=== PATIENT | female | born 1950 | race Caucasian/White ===

== ENCOUNTER 2017-11-19 14:02 | Inpatient (IN) ==
[2017-11-19] MEDS ORDERED: Ondansetron 4 MG/2 ML VIAL IVP ONE ×2 (14:09→16:05)
--- NOTE | 2017-11-19 14:10 | Emergency Department Note ---
Disposition Clinical Impression: SBO (small bowel obstruction), History of lung cancer Nausea and vomiting Qualifiers: Vomiting type: unspecified Vomiting Intractability: non-intractable Qualified Code(s): R11.2 - Nausea with vomiting, unspecified Dyspnea Qualifiers: Dyspnea type: unspecified Qualified Code(s): R06.00 - Dyspnea, unspecified Leukocytosis Qualifiers: Leukocytosis type: unspecified Qualified Code(s): D72.829 - Elevated white blood cell count, unspecified Disposition: Admitted As Inpatient Condition: Fair Referrals: Marleny Robles [employer] [Primary Care Provider] - Forms: ED Satisfaction Letter Time of Disposition: 16:40 Nausea/Vomiting/Diarrhea HPI - General Chief complaint: ED Nausea/Vomiting/Diarrhea Stated complaint: N/V Time Seen by Provider: 11/19/17 14:05 Source: patient, EMS Mode of arrival: EMS Limitations: no limitations Nursing Notes Reviewed: Yes Vital Signs Reviewed: Yes - History of Present Illness HPI Narrative: Patient is a 67-year-old female with past medical history of lung cancer, follows with the cancer center. She also has a history of KS, stent placement 2, ventral hernia. She states that she receives chemotherapy, just received a new chemotherapy within the past week. She presents today via EMS for nausea, vomiting. states that her nausea and vomiting symptoms started today around noon. She has been vomiting large amounts of brown vomit. Denies any blood in vomit. She admits to generalized abdominal discomfort. She also admits to a ventral hernia and a recent history of bowel structure in in May and she states that she felt similar to this. She also admits to mild dyspnea but denies any overt chest discomfort. Denies any known fevers, any known sick contacts, any dysuria, hematuria. - Related Data Home Medications Medication Instructions Recorded Confirmed Furosemide [Lasix] 80 mg PO DAILY 04/20/15 11/16/17 Hydroxychloroquine [Plaquenuil] 200 mg PO BID 04/20/15 11/16/17 Levothyroxine [Synthroid] 37.5 mcg PO 0630 04/20/15 11/16/17 Potassium Chloride 10 meq PO DAILY 04/20/15 11/16/17 Sertraline [Zoloft] 200 mg PO DAILY 04/20/15 11/16/17 Tizanidine HCl [Zanaflex] 4 mg PO TID PRN 12/29/15 07/27/18 Albuterol Sulfate [Proair Hfa] 2 puff IH Q4H PRN 06/10/15 11/16/17 Ascorbic Acid [Vitamin C] 250 mg PO DAILY 06/10/15 11/16/17 Calcium Carbonate/Vitamin D3 1 each PO BID 06/10/15 11/16/17 [Calcium 600 + Vit D Softgel] Cholecalciferol (D-3) [Vitamin D] 2,000 unit PO BID 06/10/15 11/16/17 Cyanocobalamin (Vitamin B-12) 2,500 mcg SL DAILY 06/10/15 11/16/17 [Vitamin B-12] Nitroglycerin [Nitrostat] 0.4 mg SL Q5M PRN 06/10/15 11/16/17 [place]-3 Fatty Acids [Fish Oil] 1,000 mg PO BID 06/10/15 11/16/17 Rivaroxaban [Xarelto] 20 mg PO DAILY 06/10/15 11/16/17 Vit C/Vit E/Lutein/Min/Atl[place]-3 1 each PO DAILY 06/10/15 11/16/17 [Ocuvite Softgel] Acetaminophen [Tylenol] 325 mg PO Q6HR PRN 03/28/17 11/16/17 Budesonide/Formoterol 160/4.5 2 puff IH BIDR 03/28/17 11/16/17 [Symbicort 160/4.5] Lidocaine Patch [Lidoderm 5% patch] 2 each TP DAILY 03/28/17 11/16/17 Simethicone [Gas Relief] 125 mg PO QID PRN 03/28/17 11/16/17 Tiotropium [Spiriva] 1 inh IH DAILY 03/28/17 11/16/17 Vitamin B Complex [B Complex] 1 each PO DAILY 03/28/17 11/16/17 guaiFENesin [Guaifenesin] 600 mg PO DAILY PRN 03/28/17 11/16/17 Metoprolol XL (24 HR) Succ [Toprol 100 mg PO DAILY 06/12/17 11/16/17 Xl] Previous Rx's Medication Instructions Recorded Aspirin 81 mg PO DAILY #30 tab.chew 04/28/15 Atorvastatin [Lipitor] 40 mg PO HS 30 Days tablet 04/28/15 Lidocaine/Prilocaine CREAM [Emla] 5 gm TP ONCE #1 tube 04/06/17 Varenicline [Chantix] 0.5 mg PO DAILY #30 tablet 05/09/17 Loperamide [Imodium] 2 mg PO Q4HR #120 capsule 09/07/17 Ondansetron [Zofran] 8 mg PO Q8HR PRN #90 tablet 09/07/17 OxyCODONE Immed Rel [Roxicodone 5 5 mg PO BID PRN 30 Days #60 tablet 10/05/17 MG] Magic Mouthwash [Magic Mouthwash 10 ml PO QID PRN #240 ml 10/19/17 BLM] Dexamethasone [Decadron] 4 mg PO BID #36 tab 11/16/17 Prochlorperazine Maleate 10 mg PO Q8HR PRN #90 tablet 11/16/17 [Compazine] Tramadol HCl [Ultram] 50 mg PO TID PRN 30 Days #90 tab 11/16/17 Zolpidem [Ambien] 5 mg PO HS PRN 30 Days #30 tablet 11/16/17 Allergies Allergy/AdvReac Type Severity Reaction Status Date / Time duloxetine [From Cymbalta] Allergy Itching Verified 11/16/17 12:46 Metaxalone [From Skelaxin] Allergy Itching Verified 11/16/17 12:46 valdecoxib [From Bextra] Allergy Itching Verified 11/16/17 12:46 bupropion [From Wellbutrin] AdvReac See Verified 11/16/17 12:46 Comments meperidine [From Demerol] AdvReac Nausea Verified 11/16/17 12:46 pentazocine [From Talwin] AdvReac See Verified 11/16/17 12:46 Comments eggs AdvReac Abdominal Uncoded 11/16/17 12:46 Pain All systems ED: reviewed and negative except as stated. Constitutional: Denies: fever Cardiovascular: Denies: chest pain Respiratory: Reports: dyspnea Gastrointestinal: Reports: abdominal pain, nausea, vomiting, diarrhea Past Medical History - Past Medical History Attestation: Yes The following information was validated with the patient. Source: patient Medical history: Reports: arthritis, asthma, atrial fibrillation, cancer, CHF, COPD, DVT, hypertension, kidney stones, myocardial infarction, peripheral artery disease, RA, thyroid disease, other Surgical history: Reports: angioplasty/stent, appendectomy, breast surgery, c- section, cholecystectomy, herniorrhaphy, orthopedic, other, other Psychiatric history: Reports: depression - Social History Smoking Status: Current every day smoker Smokeless Tobacco Status: No Alcohol use: Reports: none Drug use: Reports: none Physical Exam - General Limitations: no limitations General appearance: alert, other (actively vomiting, holding emesis bag) - Head Head exam: atraumatic, normocephalic, normal inspection - Eye Eye exam: Present: normal appearance, PERRL, EOMI - ENT ENT exam: normal exam, normal oropharynx, mucous membranes moist - Neck Neck exam: Present: normal inspection, full ROM, trachea midline - Chest Chest inspection: Present: normal inspection, symmetric chest wall rise - Respiratory Respiratory exam: Present: normal lung sounds bilaterally - Cardiovascular Cardiovascular exam: Present: normal rhythm, tachycardia, normal heart sounds - Abdominal Exam Abdominal exam: Present: soft, tenderness (Mild generalized tenderness), other ( Large ventral hernia, soft but not reducible due to size no overlying discoloration). Absent: distention, guarding, rebound, rigidity - Extremities Exam Extremities exam: Present: normal inspection, full ROM. Absent: tenderness, pedal edema - Neurological Exam Neurological exam: Present: alert, oriented X3 - Psychiatric Psychiatric exam: Present: normal affect, normal mood - Skin Skin exam: Present: warm, dry, intact, normal color Course Course Narrative: Patient was tachycardic and hypertensive on presentation. She is actively vomiting. Physical exam shows generalized abdominal tenderness. She also had large ventral hernia that was soft but not reducible due to size. Patient's symptoms may be related to new chemotherapy. However, there is concern for possible bowel obstruction. We will perform basic labs, EKG, troponin, chest x- ray due to history of KS and current shortness of breath. We will also obtain CT scan of abdomen and pelvis to assess for any objection. We will give the patient Zofran for nausea and normal saline bolus. 16:38 labs show elevated white blood cell count. Urinalysis negative for UTI. CT abdomen and pelvis shows increase in size of liver metastasis, small bowel obstruction. Chronic elevation in troponin level. No evidence of any pneumonia. I contacted Dr. Palmer with surgery, discussed small bowel structuring , he has requested NG placement at this time and nothing by mouth status. I also contacted Estefanía Ortega who is on-call for oncology, discussed case and they have agreed to be consult. Accepted for admission at this time by Dr. Szymanski Chest X-Ray 11/19/17 14:08 IMPRESSION: 1. No acute cardiopulmonary process. 2. Chronic increased interstitial markings are present bilaterally, lower lobe predominant. No obvious interval change compared to 2016. D/ / 11/19/2017 14:52:06 Caleb Munoz MD / [facility] Interpreting Provider: Caleb Munoz MD Abdomen/Pelvis CT 11/19/17 14:10 IMPRESSION: 1. Most likely explanation for the patient's symptoms is acute small bowel obstruction. No evidence of perforation. 2. Progression of metastatic disease with extensive liver masses which have somewhat grown from the previous evaluation. 3. Redemonstration of left lower lobe mass. 4. Redemonstration of ventral fat containing hernia. D/ / 11/19/2017 15:31:21 Gayle Portillo MD / [email or web address] Interpreting Provider: Gayle Portillo MD Vital Signs Temperature 98.9 F 11/19/17 14:06 Pulse Rate 104 11/19/17 14:06 Respiratory Rate 22 11/19/17 14:06 Blood Pressure 217/99 11/19/17 14:06 O2 Sat by Pulse Oximetry 96 11/19/17 14:06 Temperature 98.9 F 11/19/17 14:32 Pulse Rate 99 11/19/17 15:24 Respiratory Rate 18 11/19/17 15:24 Blood Pressure 223/102 11/19/17 15:24 O2 Sat by Pulse Oximetry 96 11/19/17 15:24 Oxygen Delivery Oxygen Delivery Room Air Nausea/Vomiting/Diarrhea - MDM Narrative Medical decision making narrative: Patient was tachycardic and hypertensive on presentation. She is actively vomiting. Physical exam shows generalized abdominal tenderness. She also had large ventral hernia that was soft but not reducible due to size. Patient's symptoms may be related to new chemotherapy. However, there is concern for possible bowel obstruction. We will perform basic labs, EKG, troponin, chest x- ray due to history of KS and current shortness of breath. We will also obtain CT scan of abdomen and pelvis to assess for any objection. We will give the patient Zofran for nausea and normal saline bolus. 16:38 labs show elevated white blood cell count. Urinalysis negative for UTI. CT abdomen and pelvis shows increase in size of liver metastasis, small bowel obstruction. Chronic elevation in troponin level. No evidence of any pneumonia. I contacted Dr. Palmer with surgery, discussed small bowel structuring , he has requested NG placement at this time and nothing by mouth status. I also contacted Estefanía Ortega who is on-call for oncology, discussed case and they have agreed to be consult. Accepted for admission at this time by Dr. Szymanski - Medical Records Medical records reviewed: Yes I reviewed the patient's medical records. - Lab Data Lab results reviewed: Yes I reviewed the patient's lab results. Result diagrams: 11/19/17 14:36 11/19/17 14:36 Lab Results 11/19/17 11/19/17 11/19/17 Range/Units 14:36 14:36 14:36 WBC 23.5 H D (4.3-11.1) K/mcL RBC 4.18 (3.82-4.97) M/mcL Hgb 10.8 L D (11.5-15.4) g/dL Hct 32.2 L (35.3-44.9) % MCV 77.0 L (83.0-100.0) fL MCH 25.8 L (28.0-33.3) pg MCHC 33.5 (31.6-35.5) g/dL RDW 21.5 H (11.5-14.5) % Plt Count 221 (140-400) K/mcL MPV 10.0 (9.4-12.4) fL Seg Neutrophils % 90.0 % Lymphocytes % 2.0 % Monocytes % 8.0 % Neutrophils # 21.2 H (1.6-8.9) K/mcL Lymphocytes # 0.5 L (0.6-4.6) K/mcL Monocytes # 1.9 H (0.0-1.3) K/mcL Platelet Estimate Normal (Normal) Anisocytosis 1+ A (Not Present) Sodium 122 L (136-145) mEq/L Potassium 3.7 (3.5-5.1) mEq/L Chloride 89 L (98-107) mEq/L Carbon Dioxide 20 L (23-29) mEq/L BUN 13 (8-23) mg/dL Creatinine 0.43 L (0.60-1.20) mg/dL Est GFR ( Amer) > 60 (> 60) Est GFR (Non-Af Amer) > 60 (> 60) BUN/Creatinine Ratio 30 H (6-26) Glucose 195 H (70-105) mg/dL Calculated Osmolality 259 L (280-300) Calcium 10.0 (8.6-10.3) mg/dL Total Bilirubin 0.7 (0.3-1.0) mg/dL Direct Bilirubin 0.2 (0.0-0.2) mg/dL Indirect Bilirubin 0.5 (0.0-1.2) mg/dL AST 53 H (13-39) Units/L ALT 33 (7-52) Units/L Alkaline Phosphatase 265 H (34-104) Units/L Troponin I 0.04 H* (< 0.04) ng/mL Serum Total Protein 7.2 (6.4-8.9) g/dL Albumin 4.3 (3.5-5.7) g/dL Globulin 2.9 (2.4-3.5) g/dL Albumin/Globulin Ratio 1.5 (1.1-2.2) Lipase 33 (11-82) Units/L Urine Color (Yellow) Urine Clarity (Clear) Urine pH (5.0-8.0) pH Units Ur Specific [place] (1.010-1.025) Urine Protein (Neg-Trace) mg/dL Urine Glucose (UA) (Normal) mg/dL Urine Ketones (Negative) mg/dL Urine Blood (Negative) Urine Nitrite (Negative) Urine Bilirubin (Negative) Urine Urobilinogen (Normal) mg/dL Ur Leukocyte Esterase (Negative) Urine Microscopic RBC (0-3) per hpf Urine Microscopic WBC (0-3) per hpf Ur Squamous Epith Cells (None-Few) per lpf Urine Bacteria (None-Few) per hpf Hyaline Casts (None-Few) per lpf Ur Culture Indicated? (NO) 11/19/17 Range/Units 15:45 WBC (4.3-11.1) K/mcL RBC (3.82-4.97) M/mcL Hgb (11.5-15.4) g/dL Hct (35.3-44.9) % MCV (83.0-100.0) fL MCH (28.0-33.3) pg MCHC (31.6-35.5) g/dL RDW (11.5-14.5) % Plt Count (140-400) K/mcL MPV (9.4-12.4) fL Seg Neutrophils % % Lymphocytes % % Monocytes % % Neutrophils # (1.6-8.9) K/mcL Lymphocytes # (0.6-4.6) K/mcL Monocytes # (0.0-1.3) K/mcL Platelet Estimate (Normal) Anisocytosis (Not Present) Sodium (136-145) mEq/L Potassium (3.5-5.1) mEq/L Chloride (98-107) mEq/L Carbon Dioxide (23-29) mEq/L BUN (8-23) mg/dL Creatinine (0.60-1.20) mg/dL Est GFR ( Amer) (> 60) Est GFR (Non-Af Amer) (> 60) BUN/Creatinine Ratio (6-26) Glucose (70-105) mg/dL Calculated Osmolality (280-300) Calcium (8.6-10.3) mg/dL Total Bilirubin (0.3-1.0) mg/dL Direct Bilirubin (0.0-0.2) mg/dL Indirect Bilirubin (0.0-1.2) mg/dL AST (13-39) Units/L ALT (7-52) Units/L Alkaline Phosphatase (34-104) Units/L Troponin I (< 0.04) ng/mL Serum Total Protein (6.4-8.9) g/dL Albumin (3.5-5.7) g/dL Globulin (2.4-3.5) g/dL Albumin/Globulin Ratio (1.1-2.2) Lipase (11-82) Units/L Urine Color Yellow (Yellow) Urine Clarity Clear (Clear) Urine pH 6.5 (5.0-8.0) pH Units Ur Specific [place] 1.018 (1.010-1.025) Urine Protein 100 H (Neg-Trace) mg/dL Urine Glucose (UA) Normal (Normal) mg/dL Urine Ketones Negative (Negative) mg/dL Urine Blood Negative (Negative) Urine Nitrite Negative (Negative) Urine Bilirubin Negative (Negative) Urine Urobilinogen Normal (Normal) mg/dL Ur Leukocyte Esterase Negative (Negative) Urine Microscopic RBC 0-3 (0-3) per hpf Urine Microscopic WBC 0-3 (0-3) per hpf Ur Squamous Epith Cells Many H (None-Few) per lpf Urine Bacteria None Seen (None-Few) per hpf Hyaline Casts None Seen (None-Few) per lpf Ur Culture Indicated? NO (NO) - Radiology Data Radiology results reviewed: Yes I reviewed the patient's radiology results. - EKG Data EKG attestation: Yes I reviewed and interpreted this EKG. EKG results narrative: 11/19/2017 at 14:12. Sinus tachycardia. Rate 104. CT 155. QRS 104. QTC 415. Normal axis. No acute ST elevation or depression. T-wave inversion in lead 3. No previous EKG. S.B.A.R. - S.B.A.R. Situation: Demographics, MOA Background: Presenting Complaint, Relevant PMH, Meds, & Allergies Assessment: Vital Signs, Course and respsone to treatment, Exam Concerns, Patient/Family Expectation, Pertinant Lab Results Recommendation: Barrier(s) to disposition, Recommendation based on pending studies, treatments, or consults S.B.A.R. Report Given to: Dr. Szymanski
[2017-11-19 14:45] LABS: Hematocrit 32.2 % (35.3-44.9); Hemoglobin 10.8 g/dL (11.5-15.4); Mean Corpuscular HGB Conc 33.5 g/dL (31.6-35.5); Mean Corpuscular Hemoglobin 25.8 pg (28.0-33.3); Platelet Count 221 K/mcL (140-400); Red Blood Count 4.18 M/mcL (3.82-4.97); Red Cell Distribution Width 21.5 % (11.5-14.5)
[2017-11-19] MEDS ORDERED: 0.9 % Sodium Chloride 1,000 ML IVC ONE (14:54)
[2017-11-19 15:05] LABS: Alanine Aminotransferase 33 Units/L (7-52); Albumin 4.3 g/dL (3.5-5.7); Albumin/Globulin Ratio 1.5 (1.1-2.2); Alkaline Phosphatase 265 Units/L (34-104); Aspartate Amino Transferase 53 Units/L (13-39); BUN/Creatinine Ratio 30 (6-26); Bilirubin,Direct 0.2 mg/dL (0.0-0.2); Bilirubin,Indirect 0.5 mg/dL (0.0-1.2); Bilirubin,Total 0.7 mg/dL (0.3-1.0); Blood Urea Nitrogen 13 mg/dL (8-23); Carbon Dioxide 20 mEq/L (23-29); Chloride 89 mEq/L (98-107); Globulin 2.9 g/dL (2.4-3.5); Glucose 195 mg/dL (70-105); Lipase 33 Units/L (11-82); Osmolality,Calculated 259 (280-300); Potassium 3.7 mEq/L (3.5-5.1); Sodium 122 mEq/L (136-145); Total Protein 7.2 g/dL (6.4-8.9); eGFR For Non-African Americans > 60 (> 60)
--- NOTE | 2017-11-19 15:28 | Emergency Department Note ---
Disposition Clinical Impression: SBO (small bowel obstruction), Nausea and vomiting, Dyspnea, Leukocytosis, History of lung cancer Disposition: Admitted As Inpatient Condition: Fair General Adult HPI - General Chief complaint: ED Nausea/Vomiting/Diarrhea Stated complaint: N/V Time Seen by Provider: 11/19/17 14:05 Source: patient, EMS Mode of arrival: EMS Limitations: no limitations - History of Present Illness Pain Scale: 4 - Related Data Home Medications Medication Instructions Recorded Confirmed Furosemide [Lasix] 80 mg PO DAILY 04/20/15 11/19/17 Hydroxychloroquine [Plaquenuil] 200 mg PO BID 04/20/15 11/19/17 Levothyroxine [Synthroid] 37[place] [address]/20/15 11/19/17 Potassium Chloride 10 meq PO DAILY 04/20/15 11/19/17 Sertraline [Zoloft] 200 mg PO DAILY 04/20/15 11/19/17 Tizanidine HCl [Zanaflex] 4 mg PO TID PRN 04/20/15 11/19/17 Albuterol Sulfate [Proair Hfa] 2 puff IH Q4H PRN 06/10/15 11/19/17 Ascorbic Acid [Vitamin C] 250 mg PO DAILY 06/10/15 11/19/17 Calcium Carbonate/Vitamin D3 1 each PO BID 06/10/15 11/19/17 [Calcium 600 + Vit D Softgel] Cholecalciferol (D-3) [Vitamin D] 2,000 unit PO BID 06/10/15 11/19/17 Cyanocobalamin (Vitamin B-12) 2,500 mcg SL DAILY 06/10/15 11/19/17 [Vitamin B-12] Nitroglycerin [Nitrostat] 0.4 mg SL Q5M PRN 06/10/15 11/19/17 [place]-3 Fatty Acids [Fish Oil] 1,000 mg PO BID 06/10/15 11/19/17 Rivaroxaban [Xarelto] 20 mg PO DAILY 06/10/15 11/19/17 Acetaminophen [Tylenol] 325 mg PO Q6HR PRN 03/28/17 11/19/17 Budesonide/Formoterol 160/4.5 2 puff IH BIDR 03/28/17 11/19/17 [Symbicort 160/4.5] Lidocaine Patch [Lidoderm 5% patch] 2 each TP DAILY 03/28/17 11/19/17 Simethicone [Gas Relief] 125 mg PO QID PRN 03/28/17 11/19/17 Tiotropium [Spiriva] 1 inh IH DAILY 03/28/17 11/19/17 Vitamin B Complex [B Complex] 1 each PO DAILY 03/28/17 11/19/17 guaiFENesin [Guaifenesin] 600 mg PO DAILY PRN 03/28/17 11/19/17 Metoprolol XL (24 HR) Succ [Toprol 100 mg PO DAILY 06/12/17 11/19/17 Xl] Previous Rx's Medication Instructions Recorded Aspirin 81 mg PO DAILY #30 tab.chew 04/28/15 Atorvastatin [Lipitor] 40 mg PO HS 30 Days tablet 04/28/15 Lidocaine/Prilocaine CREAM [Emla] 5 gm TP ONCE #1 tube 04/06/17 Loperamide [Imodium] 2 mg PO Q4HR #120 capsule 09/07/17 Ondansetron [Zofran] 8 mg PO Q8HR PRN #90 tablet 09/07/17 Magic Mouthwash [Magic Mouthwash 10 ml PO QID PRN #240 ml 10/19/17 BLM] Dexamethasone [Decadron] 4 mg PO BID #36 tab 11/16/17 Prochlorperazine Maleate 10 mg PO Q8HR PRN #90 tablet 11/16/17 [Compazine] Tramadol HCl [Ultram] 50 mg PO TID PRN 30 Days #90 tab 11/16/17 Zolpidem [Ambien] 5 mg PO HS PRN 30 Days #30 tablet 11/16/17 Allergies Allergy/AdvReac Type Severity Reaction Status Date / Time duloxetine [From Cymbalta] Allergy Itching Verified 11/16/17 12:46 Metaxalone [From Skelaxin] Allergy Itching Verified 11/16/17 12:46 valdecoxib [From Bextra] Allergy Itching Verified 11/16/17 12:46 bupropion [From Wellbutrin] AdvReac See Verified 11/16/17 12:46 Comments meperidine [From Demerol] AdvReac Nausea Verified 11/16/17 12:46 pentazocine [From Talwin] AdvReac See Verified 11/16/17 12:46 Comments eggs AdvReac Abdominal Uncoded 11/16/17 12:46 Pain Constitutional: Denies: fever Cardiovascular: Denies: chest pain Respiratory: Reports: dyspnea Gastrointestinal: Reports: abdominal pain, nausea, vomiting, diarrhea Past Medical History - Past Medical History Medical history: Reports: arthritis, asthma, atrial fibrillation, cancer, CHF, COPD, DVT, hypertension, kidney stones, myocardial infarction, peripheral artery disease, RA, thyroid disease, other Surgical history: Reports: angioplasty/stent, appendectomy, breast surgery, c- section, cholecystectomy, herniorrhaphy, orthopedic, other, other Psychiatric history: Reports: depression - Social History Smoking Status: Current every day smoker Smokeless Tobacco Status: No Alcohol use: Reports: none Drug use: Reports: none Physical Exam - General Limitations: no limitations General appearance: alert, other (actively vomiting, holding emesis bag) Course Vital Signs Temperature 98.9 F 11/19/17 14:06 Pulse Rate 104 11/19/17 14:06 Respiratory Rate 22 11/19/17 14:06 Blood Pressure 217/99 11/19/17 14:06 O2 Sat by Pulse Oximetry 96 11/19/17 14:06 Temperature 98.9 F 11/19/17 14:32 Pulse Rate 88 11/19/17 16:59 Respiratory Rate 17 11/19/17 16:59 Blood Pressure 167/81 11/19/17 16:59 O2 Sat by Pulse Oximetry 98 11/19/17 16:59 Oxygen Delivery Oxygen Delivery Room Air Medical Decision Making - Lab Data Result diagrams: 11/19/17 14:36 11/19/17 14:36 Lab Results 11/19/17 11/19/17 11/19/17 Range/Units 14:36 14:36 14:36 WBC 23.5 H D (4.3-11.1) K/mcL RBC 4.18 (3.82-4.97) M/mcL Hgb 10.8 L D (11.5-15.4) g/dL Hct 32.2 L (35.3-44.9) % MCV 77.0 L (83.0-100.0) fL MCH 25.8 L (28.0-33.3) pg MCHC 33.5 (31.6-35.5) g/dL RDW 21.5 H (11.5-14.5) % Plt Count 221 (140-400) K/mcL MPV 10.0 (9.4-12.4) fL Seg Neutrophils % 90.0 % Lymphocytes % 2.0 % Monocytes % 8.0 % Neutrophils # 21.2 H (1.6-8.9) K/mcL Lymphocytes # 0.5 L (0.6-4.6) K/mcL Monocytes # 1.9 H (0.0-1.3) K/mcL Platelet Estimate Normal (Normal) Anisocytosis 1+ A (Not Present) Sodium 122 L (136-145) mEq/L Potassium 3.7 (3.5-5.1) mEq/L Chloride 89 L (98-107) mEq/L Carbon Dioxide 20 L (23-29) mEq/L BUN 13 (8-23) mg/dL Creatinine 0.43 L (0.60-1.20) mg/dL Est GFR ( Amer) > 60 (> 60) Est GFR (Non-Af Amer) > 60 (> 60) BUN/Creatinine Ratio 30 H (6-26) Glucose 195 H (70-105) mg/dL Calculated Osmolality 259 L (280-300) Lactic Acid (0.5-2.2) mmol/L Calcium 10.0 (8.6-10.3) mg/dL Total Bilirubin 0.7 (0.3-1.0) mg/dL Direct Bilirubin 0.2 (0.0-0.2) mg/dL Indirect Bilirubin 0.5 (0.0-1.2) mg/dL AST 53 H (13-39) Units/L ALT 33 (7-52) Units/L Alkaline Phosphatase 265 H (34-104) Units/L Troponin I 0.04 H* (< 0.04) ng/mL Serum Total Protein 7.2 (6.4-8.9) g/dL Albumin 4.3 (3.5-5.7) g/dL Globulin 2.9 (2.4-3.5) g/dL Albumin/Globulin Ratio 1.5 (1.1-2.2) Lipase 33 (11-82) Units/L Urine Color (Yellow) Urine Clarity (Clear) Urine pH (5.0-8.0) pH Units Ur Specific [place] (1.010-1.025) Urine Protein (Neg-Trace) mg/dL Urine Glucose (UA) (Normal) mg/dL Urine Ketones (Negative) mg/dL Urine Blood (Negative) Urine Nitrite (Negative) Urine Bilirubin (Negative) Urine Urobilinogen (Normal) mg/dL Ur Leukocyte Esterase (Negative) Urine Microscopic RBC (0-3) per hpf Urine Microscopic WBC (0-3) per hpf Ur Squamous Epith Cells (None-Few) per lpf Urine Bacteria (None-Few) per hpf Hyaline Casts (None-Few) per lpf Ur Culture Indicated? (NO) 11/19/17 11/19/17 Range/Units 15:45 16:54 WBC (4.3-11.1) K/mcL RBC (3.82-4.97) M/mcL Hgb (11.5-15.4) g/dL Hct (35.3-44.9) % MCV (83.0-100.0) fL MCH (28.0-33.3) pg MCHC (31.6-35.5) g/dL RDW (11.5-14.5) % Plt Count (140-400) K/mcL MPV (9.4-12.4) fL Seg Neutrophils % % Lymphocytes % % Monocytes % % Neutrophils # (1.6-8.9) K/mcL Lymphocytes # (0.6-4.6) K/mcL Monocytes # (0.0-1.3) K/mcL Platelet Estimate (Normal) Anisocytosis (Not Present) Sodium (136-145) mEq/L Potassium (3.5-5.1) mEq/L Chloride (98-107) mEq/L Carbon Dioxide (23-29) mEq/L BUN (8-23) mg/dL Creatinine (0.60-1.20) mg/dL Est GFR ( Amer) (> 60) Est GFR (Non-Af Amer) (> 60) BUN/Creatinine Ratio (6-26) Glucose (70-105) mg/dL Calculated Osmolality (280-300) Lactic Acid 1.3 (0.5-2.2) mmol/L Calcium (8.6-10.3) mg/dL Total Bilirubin (0.3-1.0) mg/dL Direct Bilirubin (0.0-0.2) mg/dL Indirect Bilirubin (0.0-1.2) mg/dL AST (13-39) Units/L ALT (7-52) Units/L Alkaline Phosphatase (34-104) Units/L Troponin I (< 0.04) ng/mL Serum Total Protein (6.4-8.9) g/dL Albumin (3.5-5.7) g/dL Globulin (2.4-3.5) g/dL Albumin/Globulin Ratio (1.1-2.2) Lipase (11-82) Units/L Urine Color Yellow (Yellow) Urine Clarity Clear (Clear) Urine pH 6.5 (5.0-8.0) pH Units Ur Specific [place] 1.018 (1.010-1.025) Urine Protein 100 H (Neg-Trace) mg/dL Urine Glucose (UA) Normal (Normal) mg/dL Urine Ketones Negative (Negative) mg/dL Urine Blood Negative (Negative) Urine Nitrite Negative (Negative) Urine Bilirubin Negative (Negative) Urine Urobilinogen Normal (Normal) mg/dL Ur Leukocyte Esterase Negative (Negative) Urine Microscopic RBC 0-3 (0-3) per hpf Urine Microscopic WBC 0-3 (0-3) per hpf Ur Squamous Epith Cells Many H (None-Few) per lpf Urine Bacteria None Seen (None-Few) per hpf Hyaline Casts None Seen (None-Few) per lpf Ur Culture Indicated? NO (NO) Attestation Statement - Attestation Attestation: I examined this patient and my medical decision-making was reviewed with the Resident Physician. I agree with the documented findings, disposition and treatment plan as described except to the extent set forth below. Patient to the ED with a chief complaint of vomiting. Onset this morning. Patient stated chemotherapy was started on Sunday. She has lung cancer metastatic to the liver. On examination she is actively vomiting when she arrived in the department. Her abdomen is soft but it is tender in the lower quadrants. Plan. Labs, fluids and nausea meds and CT. CT scan shows a likely small bowel obstruction. We will discuss with surgery. Admitted to medicine. Chest X-Ray 11/19/17 14:08 IMPRESSION: 1. No acute cardiopulmonary process. 2. Chronic increased interstitial markings are present bilaterally, lower lobe predominant. No obvious interval change compared to 2016. D/ / 11/19/2017 14:52:06 Caleb Munoz MD / kalyn Interpreting Provider: Caleb Munoz MD Abdomen/Pelvis CT 11/19/17 14:10 IMPRESSION: 1. Most likely explanation for the patient's symptoms is acute small bowel obstruction. No evidence of perforation. 2. Progression of metastatic disease with extensive liver masses which have somewhat grown from the previous evaluation. 3. Redemonstration of left lower lobe mass. 4. Redemonstration of ventral fat containing hernia. D/ / 11/19/2017 15:31:21 Gayle Portillo MD / yamilet Interpreting Provider: Gayle Portillo MD Chest X-Ray 11/19/17 14:08 IMPRESSION: 1. No acute cardiopulmonary process. 2. Chronic increased interstitial markings are present bilaterally, lower lobe predominant. No obvious interval change compared to 2016. D/ / 11/19/2017 14:52:06 Caleb Munoz MD / kalyn Interpreting Provider: Caleb Munoz MD Abdomen/Pelvis CT 11/19/17 14:10 IMPRESSION: 1. Most likely explanation for the patient's symptoms is acute small bowel obstruction. No evidence of perforation. 2. Progression of metastatic disease with extensive liver masses which have somewhat grown from the previous evaluation. 3. Redemonstration of left lower lobe mass. 4. Redemonstration of ventral fat containing hernia. D/ / 11/19/2017 15:31:21 Gayle Portillo MD / yamilet Interpreting Provider: Gayle Portillo MD X-Ray 11/19/17 16:33 IMPRESSION: Tip of the NG lying in the mid body of the stomach. Focal atelectasis or pneumonia in the left retrocardiac area. Possible slight to mild vascular congestion. D/ / Lucas Claudio MD / Lucas Claudio MD Interpreting Provider: Lucas Claudio MD
[2017-11-19] MEDS ORDERED: *HR* FentaNYL (PF) 100 MCG/2 ML VIAL IVP ONE (15:51)
[2017-11-19 15:54] LABS: Lymphocytes # 0.5 K/mcL (0.6-4.6); Monocytes # 1.9 K/mcL (0.0-1.3); Neutrophils # 21.2 K/mcL (1.6-8.9)
[2017-11-19 15:55] LABS: Anisocytosis 1+ (Not Present); Platelet Estimate Normal (Normal)
[2017-11-19 15:56] LABS: Bilirubin,Urine Negative (Negative); Blood,Urine Negative (Negative); Clarity,Urine Clear (Clear); Color,Urine Yellow (Yellow); Glucose,Urine (UA) Normal (Normal); Ketones,Urine Negative (Negative); Leukocyte Esterase,Urine Negative (Negative); Nitrite,Urine Negative (Negative); PH,Urine 6.5 pH Units (5.0-8.0); Protein,Urine 100 mg/dL (Neg-Trace); Specific Gravity,Urine 1.018 (1.010-1.025); Urobilinogen,Urine Normal (Normal)
[2017-11-19 15:58] LABS: Bacteria,Urine None Seen per hpf (None-Few); Hyaline Casts,Urine None Seen per lpf (None-Few); RBC,Urine 0-3 per hpf (0-3); Squamous Epithelial Cell,Urine Many per lpf (None-Few); WBC,Urine 0-3 per hpf (0-3)
[2017-11-19] MEDS ORDERED: Piperacillin/Tazobactam 3.375 GM in 0.9 % Sodium Chloride Mini Bag 100 ML IVPB ONE (16:08)
[2017-11-19] MEDS ORDERED: Ondansetron ODT 4 MG TAB.RAPDIS PO PRN (17:47)
[2017-11-19] MEDS ORDERED: Magic Mouthwash 10 ML UD Cup PO PRN (17:47)
[2017-11-19] MEDS ORDERED: Nitroglycerin 0.4 MG TAB.SUBL SL PRN (17:47)
[2017-11-19] MEDS ORDERED: Acetaminophen 325 MG TABLET PO PRN (17:47)
[2017-11-19] MEDS ORDERED: tiZANidine 4 MG TABLET PO PRN (17:47)
[2017-11-19] MEDS ORDERED: traMADol 50 MG TABLET PO PRN (17:47)
[2017-11-19] MEDS ORDERED: D5% in Water 1,000 ML IVC PRN (17:50)
[2017-11-19] MEDS ORDERED: *HR* Dextrose 50 % in Water (Syg) 50 ML SYRINGE IVP PRN (17:50)
[2017-11-19] MEDS ORDERED: Dextrose Gel 15 GM/37.5 ML TUBE PO PRN ×2 (17:50)
--- NOTE | 2017-11-19 18:13 | Internal Med History&Physical ---
<Bisi Murrieta - Last Filed: 11/19/17 18:10> Date of Encounter: 11/19/17 Time of Encounter: 18:10 Internal Medicine - H&P: HPI Admitted From: Home Plans for Post Hospital Care: Home History of present illness: Ms. Manning is a 67-year-old female with past medical history of lung cancer, follows with the cancer center. She also has a history of NC, stent placement, CHF, DM, HLP, and ventral hernia. She states that received a new chemotherapy within the past week. She presents today via EMS for nausea, vomiting. states that her nausea and vomiting symptoms started today around noon. She has been vomiting large amounts of brown vomit. Denies any blood in vomit. She admits to generalized abdominal discomfort. She also admits to a ventral hernia and a recent history of bowel structure in in May and she states that she felt similar to this. She also admits to mild dyspnea but denies any overt chest discomfort. Denies any known fevers, any known sick contacts, any dysuria, hematuria. At the ED, her blood pressure was significantly elevated. Labs showed leukocytosis, hyponatremia, and a slightly elevated troponin. CT abdomen without IV contrast revealed possible small bowel obstruction, stable liver metastasis, and lung cancer. She received IV fluid and antibiotics. Surgery was consulted. She will be admitted as inpatient for further management. Past Med Surg Social Fam HX - Past Medical History Medical history: arthritis, asthma, atrial fibrillation, cancer, CHF, COPD, DVT , hypertension, kidney stones, myocardial infarction, peripheral artery disease , RA, thyroid disease, other Additional medical history: Glomerulonephritis. Pulmonary Nodule. Osteoarthritis. Fibrocistic Breast Disease. Spinal Stenosis. TIA. NC x2. CAD. Cologard positive Psychiatric history: depression - Past Surgical History Surgical History: angioplasty/stent, appendectomy, breast surgery, , cholecystectomy, herniorrhaphy, orthopedic, other, other Additional surgical history: ORIF Right Ankle. Gastric Bypass. Heart stents - Social History Smoking Status: Current every day smoker Smokeless Tobacco Status: No Alcohol use: none Drug use: none - Family History Brother Living Status: Still Living Hx Family Cancer: Yes (Lung cancer with metastasis to the brain) Sister Living Status: Still Living Hx Family Endocrine Disorder: Yes (Thyroid disease) Daughter Adopted: No Living Status: Still Living Hx Family Neurologic Disorders: Yes (stroke x2) Father Living Status: Hx Family Cardiac Disorders: Yes (hypertension) Mother Adopted: No Family Member Ethnicity: Non- Living Status: Hx Family Cardiac Disorders: Yes (CHF) Hx Family Respiratory Disorders: No Hx Family Cancer: Yes (breast) Hx Family GI Disorders: No Hx Family Endocrine Disorder: Yes (goiter removal) Hx Family Neuromuscular Disorders: No Hx Family Neurologic Disorders: Yes (seizures from meningioma) Hx Family HEENT Disorders: Yes (cataracts) Hx Family Autoimmune Disorders: No Internal Medicine - H&P: Meds Furosemide [Lasix] 80 mg PO DAILY 04/20/15 [History] Hydroxychloroquine [Plaquenuil] 200 mg PO BID 04/20/15 [History] Levothyroxine [Synthroid] 37.5 mcg PO 0630 04/20/15 [History] Potassium Chloride 10 meq PO DAILY 04/20/15 [History] Sertraline [Zoloft] 200 mg PO DAILY 04/20/15 [History] Tizanidine HCl [Zanaflex] 4 mg PO TID PRN 04/20/15 [History] Aspirin 81 mg PO DAILY #30 tab.chew 04/28/15 [Rx] Atorvastatin [Lipitor] 40 mg PO HS 30 Days tablet 04/28/15 [Rx] Albuterol Sulfate [Proair Hfa] 2 puff IH Q4H PRN 06/10/15 [History] Ascorbic Acid [Vitamin C] 250 mg PO DAILY 06/10/15 [History] Calcium Carbonate/Vitamin D3 [Calcium 600 + Vit D Softgel] 1 each PO BID [History] Cholecalciferol (D-3) [Vitamin D] 2,000 unit PO BID 06/10/15 [History] Cyanocobalamin (Vitamin B-12) [Vitamin B-12] 2,500 mcg SL DAILY 06/10/15 [ History] Nitroglycerin [Nitrostat] 0.4 mg SL Q5M PRN 06/10/15 [History] [place]-3 Fatty Acids [Fish Oil] 1,000 mg PO BID 06/10/15 [History] Rivaroxaban [Xarelto] 20 mg PO DAILY 06/10/15 [History] Acetaminophen [Tylenol] 325 mg PO Q6HR PRN 03/28/17 [History] Budesonide/Formoterol 160/4.5 [Symbicort 160/4.5] 2 puff IH BIDR 03/28/17 [ History] Lidocaine Patch [Lidoderm 5% patch] 2 each TP DAILY 03/28/17 [History] Simethicone [Gas Relief] 125 mg PO QID PRN 03/28/17 [History] Tiotropium [Spiriva] 1 inh IH DAILY 03/28/17 [History] Vitamin B Complex [B Complex] 1 each PO DAILY 03/28/17 [History] guaiFENesin [Guaifenesin] 600 mg PO DAILY PRN 03/28/17 [History] Lidocaine/Prilocaine CREAM [Emla] 5 gm TP ONCE #1 tube 04/06/17 [Rx] Metoprolol XL (24 HR) Succ [Toprol Xl] 100 mg PO DAILY 06/12/17 [History] Loperamide [Imodium] 2 mg PO Q4HR #120 capsule 09/07/17 [Rx] Ondansetron [Zofran] 8 mg PO Q8HR PRN #90 tablet 09/07/17 [Rx] Magic Mouthwash [Magic Mouthwash BLM] 10 ml PO QID PRN #240 ml 10/19/17 [Rx] Dexamethasone [Decadron] 4 mg PO BID #36 tab 11/16/17 [Rx] Prochlorperazine Maleate [Compazine] 10 mg PO Q8HR PRN #90 tablet 11/16/17 [Rx] Tramadol HCl [Ultram] 50 mg PO TID PRN 30 Days #90 tab 11/16/17 [Rx] Zolpidem [Ambien] 5 mg PO HS PRN 30 Days #30 tablet 11/16/17 [Rx] 3 Allergy/AdvReac Type Severity Reaction Status Date / Time duloxetine [From Cymbalta] Allergy Itching Verified 11/16/17 12:46 Metaxalone [From Skelaxin] Allergy Itching Verified 11/16/17 12:46 valdecoxib [From Bextra] Allergy Itching Verified 11/16/17 12:46 bupropion [From Wellbutrin] AdvReac See Verified 11/16/17 12:46 Comments meperidine [From Demerol] AdvReac Nausea Verified 11/16/17 12:46 pentazocine [From Talwin] AdvReac See Verified 11/16/17 12:46 Comments eggs AdvReac Abdominal Uncoded 11/16/17 12:46 Pain All Systems PM: A 10-system review of systems was performed and is negative for pertinent findings except as documented above in the HPI. Review of systems: REVIEW OF SYSTEMS: CONSTITUTIONAL: No weight loss, fever, chills, weakness or fatigue. HEENT: Eyes: No visual loss, blurred vision, double vision or yellow sclerae. Ears, Nose, Throat: No hearing loss, sneezing, congestion, runny nose or sore throat. SKIN: No rash or itching. CARDIOVASCULAR: No chest pain, chest pressure or chest discomfort. No palpitations or edema. RESPIRATORY: No shortness of breath, cough or sputum. GASTROINTESTINAL: see HPI. GENITOURINARY: No dysuria, urgency, or frequency. NEUROLOGICAL: No headache, dizziness, syncope, paralysis, ataxia, numbness or tingling in the extremities. No change in bowel or bladder control. MUSCULOSKELETAL: No muscle, back pain, joint pain or stiffness. HEMATOLOGIC: No anemia, bleeding or bruising. LYMPHATICS: No enlarged nodes. No history of splenectomy. PSYCHIATRIC: No history of depression or anxiety. ENDOCRINOLOGIC: No reports of sweating, cold or heat intolerance. No polyuria or polydipsia. - Constitutional Vitals: Temp Pulse Resp BP Pulse Ox 98.9 F 88 17 167/81 98 11/19/17 14:32 11/19/17 16:59 11/19/17 16:59 11/19/17 16:59 11/19/17 16:59 General appearance: Present: A&O X 3, answers questions appropriately Exam: PHYSICAL EXAMINATION: GENERAL APPEARANCE: The patient is alert, oriented and in no acute distress. HEENT: Head is normocephalic. The sinuses are nontender. Pupils are equal and reactive. The nares are patent. Oropharynx clear without lesions. NECK: Supple without lymphadenopathy. HEART: Regular rate and rhythm. LUNGS: No crackles or wheezes are heard. ABDOMEN: Soft, diffusely and distended with good bowel sounds heard. EXTREMITIES: Without cyanosis, clubbing or edema. NEUROLOGICAL: Gross nonfocal. SKIN: Warm and dry without any rash. Internal Med - H&P Results - Labs CBC & Chem 7: 11/19/17 14:36 11/19/17 14:36 - Assessment and plan (1) Small bowel obstruction Current Visit: Yes Status: Acute Assessment and plan: 57-year-old female with history of lung cancer, metastasized to liver, bowel obstruction, atrial fibrillation, CHF presented with acute onset of abdominal discomfort, nausea, and vomiting. CT abdomen revealed possible small bowel obstruction. Labs revealed increased WBC and the mildly elevated troponin. - She received IV fluids and IV antibiotics at the ED, his seems dehydrated, will continue IV fluid, continue IV antibiotics with Zosyn. - NG tube to low suction. - Surgery consult. (2) Leukocytosis Current Visit: Yes Status: Acute Assessment and plan: CT did not reveal bowel perforation, blood culture pending, continue empirical antibiotics with IV Zosyn. Qualifiers: Leukocytosis type: unspecified Qualified Code(s): D72.829 - Elevated white blood cell count, unspecified (3) Elevated troponin Current Visit: Yes Status: Acute Assessment and plan: Likely secondary to type II NC. Continue cycling troponin. EKG monitoring. (4) Hypothyroidism Current Visit: No Status: Chronic Assessment and plan: Continue home medication Qualifiers: Hypothyroidism type: unspecified Qualified Code(s): E03.9 - Hypothyroidism , unspecified (5) Hyperlipemia Current Visit: No Status: Chronic Assessment and plan: Continue home medications. Qualifiers: Hyperlipidemia type: unspecified Qualified Code(s): E78.5 - Hyperlipidemia , unspecified (6) Paroxysmal atrial fibrillation Current Visit: No Status: Chronic Assessment and plan: Hold Xarelto. (7) Diastolic CHF, chronic Current Visit: No Status: Chronic Assessment and plan: Patient seems volume depleted, hold diuretics, continue IV fluid, continue other medications for CHF. (8) Lung cancer Current Visit: No Status: Chronic Assessment and plan: Patient follow-up with cancer center. Qualifiers: Laterality: left Lung location: lower lobe of lung Qualified Code(s): C34.32 - Malignant neoplasm of lower lobe, left bronchus or lung (9) Metastatic lung cancer (metastasis from lung to other site) Current Visit: No Status: Chronic Assessment and plan: Patient follow-up with cancer center. Qualifiers: Laterality: unspecified laterality Qualified Code(s): C34.90 - Malignant neoplasm of unspecified part of unspecified bronchus or lung (10) COPD (chronic obstructive pulmonary disease) Current Visit: No Status: Chronic Assessment and plan: Continue home medications. Qualifiers: COPD type: unspecified COPD Qualified Code(s): J44.9 - Chronic obstructive pulmonary disease, unspecified (11) Diabetes mellitus Current Visit: Yes Status: Acute Assessment and plan: insulin SS. Qualifiers: Diabetes mellitus type: type 2 Diabetes mellitus longterm insulin use: unspecified longterm insulin use status Diabetes mellitus complication status : with unspecified complications Qualified Code(s): E11.8 - Type 2 diabetes mellitus with unspecified complications (12) DVT prophylaxis Current Visit: Yes Status: Acute Assessment and plan: SCDs - Time Spent With Patient Total time spent is greater than 50% in coordination of care (as documented) at patient's floor/unit and/or counseling patient: Greater than 35 minutes <Ai Washburn - Last Filed: 11/19/17 23:07> Date of Encounter: 11/19/17 Internal Medicine - H&P: HPI History of present illness: Ms. Manning is a 67 year old female with past medical history of lung cancer with liver mets. Pt states she is having some back pain due to hx of arthritis. Per surgery NG hooked to suction. All Systems PM: A 10-system review of systems was performed and is negative for pertinent findings except as documented above in the HPI. - Constitutional Vitals: Temp Pulse Resp BP Pulse Ox 99.1 F 93 17 154/83 94 11/19/17 18:27 11/19/17 18:27 11/19/17 20:17 11/19/17 18:27 11/19/17 20:17 - Head Head exam: Present: atraumatic, normocephalic - Eye Eye exam: Present: PERRL, conjuntiva pink, sclera anicteric Pupils: Present: PERRL - Neck Neck exam general surgery: Present: supple, trachea midline. Absent: lymphadenopathy - Respiratory Respiratory exam: Present: CTAB. Absent: accessory muscle use, rales, rhonchi, wheezes - Cardiovascular Cardiovascular exam: Present: RRR, +S1, +S2. Absent: diastolic murmur, gallop, rubs, systolic murmur - GI/Abdominal GI/Abdominal exam: Present: distended, normal bowel sounds, tenderness, no peritoneal signs Additional comments: slightly firm - Extremities Exam Extremities exam: Present: warm, radial pulses palpable and symmetrical. Absent : calf tenderness, cyanotic, pedal edema - Neurological Exam Neurological exam: Present: CN II-XII intact, oriented X3, no focal deficits. Absent: pronater drift, facial droop, speech deficit - Skin Skin exam: Present: dry, intact Internal Med - H&P Results - Labs CBC & Chem 7: 11/19/17 14:36 11/19/17 14:36 - Attending Attestation I performed a history and physical exam of the patient and discussed his management with the FINANCIAL ANALYSIS ADVISOR. I reviewed the FINANCIAL ANALYSIS ADVISOR's note and agree with the documented findings and plan of care. - Assessment and plan (1) Small bowel obstruction Current Visit: Yes Status: Acute Assessment and plan: Case discussed with surgery and will see in consult. NG in place. - Time Spent With Patient Total time spent is greater than 50% in coordination of care (as documented) at patient's floor/unit and/or counseling patient:
[2017-11-19] MEDS ORDERED: Naloxone 0.4 MG/ML INJ IVP PRN (18:26)
[2017-11-19] MEDS: 0.9 % Sodium Chloride 1,000 ML IVC SCH (19:19)
[2017-11-19] MEDS: Insulin LISPRO 300 UNITS/3 ML VIAL SQ SCH ×2 (19:19→23:57)
[2017-11-19] MEDS: Budesonide/Formoterol 160/4.5 1 PUFF INH IH SCH (20:17)
[2017-11-19] MEDS: Cholecalciferol (D-3) 1,000 UNIT TABLET PO SCH (20:19)
[2017-11-19] MEDS: (Omega-3 Fatty Acids [Fish Oil] 1,000 MG) PO SCH (20:19)
[2017-11-19] MEDS: Ondansetron 4 MG/2 ML VIAL IVP PRN (20:20)
[2017-11-19] MEDS: Piperacillin/Tazobactam 3.375 GM in 0.9 % Sodium Chloride Mini Bag 100 ML IVPB SCH (23:49)
[2017-11-20] MEDS: OXYCODONE Oral CONC 10 MG/0.5 ML ORAL.SYG SL PRN ×3 (00:07→18:15)
[2017-11-20] MEDS: 0.9 % Sodium Chloride 1,000 ML IVC SCH ×3 (02:54→23:46)
[2017-11-20] MEDS: Ondansetron 4 MG/2 ML VIAL IVP PRN ×2 (02:54→08:03)
[2017-11-20] MEDS: Levothyroxine 25 MCG TABLET PO SCH (04:48)
[2017-11-20] MEDS: Insulin LISPRO 300 UNITS/3 ML VIAL SQ SCH ×3 (04:48→18:02)
[2017-11-20 05:48] LABS: Hematocrit 28.6 % (35.3-44.9); Mean Corpuscular HGB Conc 32.2 g/dL (31.6-35.5); Mean Corpuscular Hemoglobin 24.6 pg (28.0-33.3); Mean Corpuscular Volume 76.5 fL (83.0-100.0); Mean Platelet Volume 9.7 fL (9.4-12.4); Nucleated Red Blood Cells 0.1 /100 WBC (0); Platelet Count 213 K/mcL (140-400); Red Blood Count 3.74 M/mcL (3.82-4.97); Red Cell Distribution Width 21.7 % (11.5-14.5)
[2017-11-20 05:51] LABS: Hemoglobin 9.2 g/dL (11.5-15.4)
[2017-11-20 06:06] LABS: BUN/Creatinine Ratio 18 (6-26); Blood Urea Nitrogen 8 mg/dL (8-23); Calcium 9.5 mg/dL (8.6-10.3); Carbon Dioxide 21 mEq/L (23-29); Chloride 97 mEq/L (98-107); Glucose 121 mg/dL (70-105); Magnesium 1.7 mg/dL (1.6-2.6); Osmolality,Calculated 266 (280-300); Potassium 3.4 mEq/L (3.5-5.1); Sodium 128 mEq/L (136-145); eGFR For Non-African Americans > 60 (> 60)
[2017-11-20 06:27] LABS: Anisocytosis 3+ (Not Present); Large Platelets Present (Not Present); Lymphocytes # 2.4 K/mcL (0.6-4.6); Macrocytosis Present (Not Present); Microcytosis Present (Not Present); Neutrophils # 19.5 K/mcL (1.6-8.9); Platelet Estimate Normal (Normal); Toxic Granulation Present (Not Present)
[2017-11-20] MEDS: Budesonide/Formoterol 160/4.5 1 PUFF INH IH SCH ×2 (07:32→20:10)
[2017-11-20] MEDS: Tiotropium 18 MCG inhalation IH SCH (07:34)
[2017-11-20] MEDS: Piperacillin/Tazobactam 3.375 GM in 0.9 % Sodium Chloride Mini Bag 100 ML IVPB SCH ×2 (08:03→16:58)
--- NOTE | 2017-11-20 10:37 | General Surgery Consult Note ---
<Danette Huerta E - Last Filed: 11/20/17 10:34> Date of Encounter: 11/20/17 Time of Encounter: 10:34 Assessment and Plan (1) Small bowel obstruction Current Visit: Yes Status: Acute Small Bowel follow through with barium ordered, awaiting results NPO NGT to suction IV fluids and IV antibiotics as per primary (2) Metastatic lung cancer (metastasis from lung to other site) Current Visit: No Status: Chronic Qualifiers: Laterality: unspecified laterality Qualified Code(s): C34.90 - Malignant neoplasm of unspecified part of unspecified bronchus or lung (3) Paroxysmal atrial fibrillation Current Visit: No Status: Chronic History of Present Illness Consult date: 11/20/17 Reason for consult: abdominal pain History of present illness: PAtient states yesterday mid morning she started vomiting, prior to that on sunday she had one loose bowel movement but believes this was from her Chemo treatmnt on Sunday. She states yesterday morning she vomited numerous times and felt very ill. She has had a few small hard stools that are pellet like since but no regular bowel movement. Past Med Surg Social Fam HX - Past Medical History Medical history: arthritis, asthma, atrial fibrillation, cancer, CHF, COPD, DVT , hypertension, kidney stones, myocardial infarction, peripheral artery disease , RA, thyroid disease, other Additional medical history: Glomerulonephritis. Pulmonary Nodule. Osteoarthritis. Fibrocistic Breast Disease. Spinal Stenosis. TIA. CT x2. CAD. Cologard positive Psychiatric history: depression - Past Surgical History Surgical History: angioplasty/stent, appendectomy, breast surgery, , cholecystectomy, herniorrhaphy, orthopedic, other, other Additional surgical history: ORIF Right Ankle. Gastric Bypass. Heart stents - Social History Smoking Status: Former smoker Smokeless Tobacco Status: No Alcohol use: none Drug use: none - Family History Brother Living Status: Still Living Hx Family Cancer: Yes (Lung cancer with metastasis to the brain) Sister Living Status: Still Living Hx Family Endocrine Disorder: Yes (Thyroid disease) Daughter Adopted: No Living Status: Still Living Hx Family Neurologic Disorders: Yes (stroke x2) Father Living Status: Hx Family Cardiac Disorders: Yes (hypertension) Mother Adopted: No Family Member Ethnicity: Non- Living Status: Hx Family Cardiac Disorders: Yes (CHF) Hx Family Respiratory Disorders: No Hx Family Cancer: Yes (breast) Hx Family GI Disorders: No Hx Family Endocrine Disorder: Yes (goiter removal) Hx Family Neuromuscular Disorders: No Hx Family Neurologic Disorders: Yes (seizures from meningioma) Hx Family HEENT Disorders: Yes (cataracts) Hx Family Autoimmune Disorders: No Medications and Allergies Furosemide [Lasix] 80 mg PO DAILY 04/20/15 [History] Hydroxychloroquine [Plaquenuil] 200 mg PO BID 04/20/15 [History] Levothyroxine [Synthroid] 37.5 mcg PO 0630 04/20/15 [History] Potassium Chloride 10 meq PO DAILY 04/20/15 [History] Sertraline [Zoloft] 200 mg PO DAILY 04/20/15 [History] Tizanidine HCl [Zanaflex] 4 mg PO TID PRN 04/20/15 [History] Aspirin 81 mg PO DAILY #30 tab.chew 04/28/15 [Rx] Atorvastatin [Lipitor] 40 mg PO HS 30 Days tablet 04/28/15 [Rx] Albuterol Sulfate [Proair Hfa] 2 puff IH Q4H PRN 06/10/15 [History] Ascorbic Acid [Vitamin C] 250 mg PO DAILY 06/10/15 [History] Calcium Carbonate/Vitamin D3 [Calcium 600 + Vit D Softgel] 1 each PO BID [History] Cholecalciferol (D-3) [Vitamin D] 2,000 unit PO BID 06/10/15 [History] Cyanocobalamin (Vitamin B-12) [Vitamin B-12] 2,500 mcg SL DAILY 06/10/15 [ History] Nitroglycerin [Nitrostat] 0.4 mg SL Q5M PRN 06/10/15 [History] [place]-3 Fatty Acids [Fish Oil] 1,000 mg PO BID 06/10/15 [History] Rivaroxaban [Xarelto] 20 mg PO DAILY 06/10/15 [History] Acetaminophen [Tylenol] 325 mg PO Q6HR PRN 03/28/17 [History] Budesonide/Formoterol 160/4.5 [Symbicort 160/4.5] 2 puff IH BIDR 03/28/17 [ History] Lidocaine Patch [Lidoderm 5% patch] 2 each TP DAILY 03/28/17 [History] Simethicone [Gas Relief] 125 mg PO QID PRN 03/28/17 [History] Tiotropium [Spiriva] 1 inh IH DAILY 03/28/17 [History] Vitamin B Complex [B Complex] 1 each PO DAILY 03/28/17 [History] guaiFENesin [Guaifenesin] 600 mg PO DAILY PRN 03/28/17 [History] Lidocaine/Prilocaine CREAM [Emla] 5 gm TP ONCE #1 tube 04/06/17 [Rx] Metoprolol XL (24 HR) Succ [Toprol Xl] 100 mg PO DAILY 06/12/17 [History] Loperamide [Imodium] 2 mg PO Q4HR #120 capsule 09/07/17 [Rx] Ondansetron [Zofran] 8 mg PO Q8HR PRN #90 tablet 09/07/17 [Rx] Magic Mouthwash [Magic Mouthwash BLM] 10 ml PO QID PRN #240 ml 10/19/17 [Rx] Dexamethasone [Decadron] 4 mg PO BID #36 tab 11/16/17 [Rx] Prochlorperazine Maleate [Compazine] 10 mg PO Q8HR PRN #90 tablet 11/16/17 [Rx] Tramadol HCl [Ultram] 50 mg PO TID PRN 30 Days #90 tab 11/16/17 [Rx] Zolpidem [Ambien] 5 mg PO HS PRN 30 Days #30 tablet 11/16/17 [Rx] 3 Allergy/AdvReac Type Severity Reaction Status Date / Time duloxetine [From Cymbalta] Allergy Itching Verified 11/16/17 12:46 Metaxalone [From Skelaxin] Allergy Itching Verified 11/16/17 12:46 valdecoxib [From Bextra] Allergy Itching Verified 11/16/17 12:46 bupropion [From Wellbutrin] AdvReac See Verified 11/16/17 12:46 Comments meperidine [From Demerol] AdvReac Nausea Verified 11/16/17 12:46 pentazocine [From Talwin] AdvReac See Verified 11/16/17 12:46 Comments eggs AdvReac Abdominal Uncoded 11/16/17 12:46 Pain Review of Systems All systems PM: reviewed and no additional remarkable complaints except as stated All systems PM: The remainder of the systems were reviewed and are negative - Constitutional anorexia, fatigue - Cardiovascular lightheadedness, palpitations, rapid heart rate - Respiratory no cough, no wheezing, no snoring - Gastrointestinal abdominal pain, change in bowel habits, diarrhea, vomiting General Surgery Exam Initial Vital Signs Temp Pulse Resp BP Pulse Ox 98.9 F 104 22 217/99 96 11/19/17 14:11/19/17 14:06 11/19/17 14:06 11/19/17 14:06 11/19/17 14:06 - General physical appearance well developed, well nourished, moderate distress - Respiratory normal expansion, normal respiratory effort, clear to auscultation - Cardiovascular Cardiovascular exam: Present: tachycardia, no murmurs/rubs/gallops - Abdomen Abdomen general surgery: Present: bowel sounds present, soft, tender Abdominal Tenderness: Present: LLQ Hernia: Present: reducible, epigastric - Integumentary Integumentary general surgery: Present: warm and dry, no abnormal pigmentation - Musculoskeletal Present: normal posture - Psychiatric Psychiatric general surgery: Present: A&Ox3, speech is normal, memory intact Exam Initial Vital Signs Temp Pulse Resp BP Pulse Ox 98.9 F 104 22 217/99 96 11/19/17 14:06 11/19/17 14:06 11/19/17 14:06 11/19/17 14:06 11/19/17 14:06 Results - Labs 11/20/17 05:26 11/20/17 05:26 Abnormal lab results WBC 24.4 K/mcL (4.3-11.1) H 11/20/17 05:26 RBC 3.74 M/mcL (3.82-4.97) L 11/20/17 05:26 Hgb 9.2 g/dL (11.5-15.4) L D 11/20/17 05:26 Hct 28.6 % (35.3-44.9) L 11/20/17 05:26 MCV 76.5 fL (83.0-100.0) L 11/20/17 05:26 MCH 24.6 pg (28.0-33.3) L 11/20/17 05:26 RDW 21.7 % (11.5-14.5) H 11/20/17 05:26 Band Neutrophils % 16.0 % (0-4) H 11/20/17 05:26 Metamyelocytes % 4.0 % (0) H 11/20/17 05:26 Myelocytes % 6.0 % (0) H 11/20/17 05:26 Neutrophils # 19.5 K/mcL (1.6-8.9) H 11/20/17 05:26 Monocytes # 1.9 K/mcL (0.0-1.3) H 11/19/17 14:36 Nucleated RBCs/100 WBC 0.1 /100 WBC (0) H 11/20/17 05:26 Toxic Granulation Present (Not Present) A 11/20/17 05:26 Large Platelets Present (Not Present) A 11/20/17 05:26 Anisocytosis 3+ (Not Present) A 11/20/17 05:26 Microcytosis Present (Not Present) A 11/20/17 05:26 Macrocytosis Present (Not Present) A 11/20/17 05:26 Sodium 128 mEq/L (136-145) L 11/20/17 05:26 Potassium 3.4 mEq/L (3.5-5.1) L 11/20/17 05:26 Chloride 97 mEq/L (98-107) L 11/20/17 05:26 Carbon Dioxide 21 mEq/L (23-29) L 11/20/17 05:26 Creatinine 0.44 mg/dL (0.60-1.20) L 11/20/17 05:26 Glucose 121 mg/dL (70-105) H 11/20/17 05:26 POC Glucose 124 mg/dL (70-99) H 11/20/17 05:31 Calculated Osmolality 266 (280-300) L 11/20/17 05:26 AST 53 Units/L (13-39) H 11/19/17 14:36 Alkaline Phosphatase 265 Units/L (34-104) H 11/19/17 14:36 Troponin I 0.07 ng/mL (< 0.04) H* 11/19/17 18:18 Urine Protein 100 mg/dL (Neg-Trace) H 11/19/17 15:45 Ur Squamous Epith Cells Many per lpf (None-Few) H 11/19/17 15:45 Diabetes panel 11/20/17 Range/Units 05:26 Sodium 128 L (136-145) mEq/L Potassium 3.4 L (3.5-5.1) mEq/L Chloride 97 L (98-107) mEq/L Carbon Dioxide 21 L (23-29) mEq/L BUN 8 (8-23) mg/dL Creatinine 0.44 L (0.60-1.20) mg/dL Glucose 121 H (70-105) mg/dL Calcium 9.5 (8.6-10.3) mg/dL Calcium panel 11/20/17 Range/Units 05:26 Calcium 9.5 (8.6-10.3) mg/dL Pituitary panel 11/20/17 Range/Units 05:26 Sodium 128 L (136-145) mEq/L Potassium 3.4 L (3.5-5.1) mEq/L Chloride 97 L (98-107) mEq/L Carbon Dioxide 21 L (23-29) mEq/L BUN 8 (8-23) mg/dL Creatinine 0.44 L (0.60-1.20) mg/dL Glucose 121 H (70-105) mg/dL Calcium 9.5 (8.6-10.3) mg/dL Adrenal panel 11/20/17 Range/Units 05:26 Sodium 128 L (136-145) mEq/L Potassium 3.4 L (3.5-5.1) mEq/L Chloride 97 L (98-107) mEq/L Carbon Dioxide 21 L (23-29) mEq/L BUN 8 (8-23) mg/dL Creatinine 0.44 L (0.60-1.20) mg/dL Glucose 121 H (70-105) mg/dL Calcium 9.5 (8.6-10.3) mg/dL All other labs normal. Consult Discharge Plan - Plan Referrals: Marleny Robles, LINE SERVICE SUPERVISOR [Primary Care Provider] - <Desmond Palmer - Last Filed: 11/22/17 09:18> Date of Encounter: 11/20/17 Review of Systems All systems PM: The remainder of the systems were reviewed and are negative General Surgery Exam Initial Vital Signs Temp Pulse Resp BP Pulse Ox 98.9 F 104 22 217/99 96 11/19/17 14:06 11/19/17 14:06 11/19/17 14:11/19/17 14:06 11/19/17 14:06 Exam Initial Vital Signs Temp Pulse Resp BP Pulse Ox 98.9 F 104 22 217/99 96 11/19/17 14:06 11/19/17 14:06 11/19/17 14:06 11/19/17 14:06 11/19/17 14:06 Results - Labs 11/22/17 03:55 11/22/17 03:55 Abnormal lab results WBC 17.7 K/mcL (4.3-11.1) H 11/22/17 03:55 RBC 3.41 M/mcL (3.82-4.97) L 11/22/17 03:55 Hgb 8.4 g/dL (11.5-15.4) L 11/22/17 03:55 Hct 26.8 % (35.3-44.9) L 11/22/17 03:55 MCV 78.6 fL (83.0-100.0) L 11/22/17 03:55 MCH 24.6 pg (28.0-33.3) L 11/22/17 03:55 MCHC 31.3 g/dL (31.6-35.5) L 11/22/17 03:55 RDW 22.1 % (11.5-14.5) H 11/22/17 03:55 Metamyelocytes % 4.0 % (0) H 11/21/17 05:31 Myelocytes % 6.0 % (0) H 11/20/17 05:26 Neutrophils # 15.0 K/mcL (1.6-8.9) H 11/21/17 05:31 Nucleated RBCs/100 WBC 0.1 /100 WBC (0) H 11/21/17 05:31 Toxic Granulation Present (Not Present) A 11/20/17 05:26 Large Platelets Present (Not Present) A 11/20/17 05:26 Anisocytosis 3+ (Not Present) A 11/20/17 05:26 Microcytosis Present (Not Present) A 11/20/17 05:26 Macrocytosis Present (Not Present) A 11/20/17 05:26 Sodium 135 mEq/L (136-145) L 11/22/17 03:55 Potassium 2.9 mEq/L (3.5-5.1) L 11/22/17 03:55 Carbon Dioxide 19 mEq/L (23-29) L 11/22/17 03:55 BUN 7 mg/dL (8-23) L 11/22/17 03:55 Creatinine 0.38 mg/dL (0.60-1.20) L 11/22/17 03:55 Glucose 122 mg/dL (70-105) H 11/22/17 03:55 POC Glucose 117 mg/dL (70-99) H 11/21/17 19:50 Calculated Osmolality 279 (280-300) L 11/22/17 03:55 Calcium 8.5 mg/dL (8.6-10.3) L 11/22/17 03:55 AST 53 Units/L (13-39) H 11/19/17 14:36 Alkaline Phosphatase 265 Units/L (34-104) H 11/19/17 14:36 Troponin I 0.07 ng/mL (< 0.04) H* 11/19/17 18:18 Urine Protein 100 mg/dL (Neg-Trace) H 11/19/17 15:45 Ur Squamous Epith Cells Many per lpf (None-Few) H 11/19/17 15:45 Diabetes panel 11/22/17 11/22/17 Range/Units 03:55 03:55 Sodium 135 L (136-145) mEq/L Potassium 2.9 L (3.5-5.1) mEq/L Chloride 107 (98-107) mEq/L Carbon Dioxide 19 L (23-29) mEq/L BUN 7 L (8-23) mg/dL Creatinine 0.38 L (0.60-1.20) mg/dL Glucose 122 H (70-105) mg/dL Calcium 8.5 L (8.6-10.3) mg/dL Triglycerides 73 (< 150) mg/dL Calcium panel 11/22/17 11/22/17 Range/Units 03:55 03:55 Calcium 8.5 L (8.6-10.3) mg/dL Phosphorus 2.8 (2.7-4.5) mg/dL Pituitary panel 11/22/17 Range/Units 03:55 Sodium 135 L (136-145) mEq/L Potassium 2.9 L (3.5-5.1) mEq/L Chloride 107 (98-107) mEq/L Carbon Dioxide 19 L (23-29) mEq/L BUN 7 L (8-23) mg/dL Creatinine 0.38 L (0.60-1.20) mg/dL Glucose 122 H (70-105) mg/dL Calcium 8.5 L (8.6-10.3) mg/dL Adrenal panel 11/22/17 Range/Units 03:55 Sodium 135 L (136-145) mEq/L Potassium 2.9 L (3.5-5.1) mEq/L Chloride 107 (98-107) mEq/L Carbon Dioxide 19 L (23-29) mEq/L BUN 7 L (8-23) mg/dL Creatinine 0.38 L (0.60-1.20) mg/dL Glucose 122 H (70-105) mg/dL Calcium 8.5 L (8.6-10.3) mg/dL All other labs normal. - Attending Attestation I examined this patient and my medical decision-making was reviewed with the Resident Physician. I agree with the documented findings, disposition and treatment plan as described except to the extent set forth below. The patient is seen and evaluated on morning rounds with resident and the clinical nurse practitioner. She is a very complex patient with metastatic lung cancer and a heavy hepatic tumor burden. She has high-grade partial small bowel obstruction that is recurrent. She may require palliative bypass. I plan to obtain a small bowel follow-through to try to identify the area of obstruction she would benefit from TPN and PICC line. Further therapeutic planning will be based on small bowel follow-through results. Desmond Palmer MD FACS
[2017-11-20] MEDS: (Omega-3 Fatty Acids [Fish Oil] 1,000 MG) PO SCH (10:52)
[2017-11-20] MEDS: Vitamin B Complex/Vit C/Vit E 1 EACH TABLET PO SCH (10:52)
[2017-11-20] MEDS: Cyanocobalamin (B-12) 1,000 MCG TABLET PO SCH (10:53)
[2017-11-20] MEDS: Cholecalciferol (D-3) 1,000 UNIT TABLET PO SCH ×2 (10:53→23:10)
[2017-11-20] MEDS: Ascorbic Acid 500 MG TABLET PO SCH (10:53)
[2017-11-20] MEDS: Metoprolol XL (24 HR) Succ 50 MG TAB.ER.24H PO SCH (10:53)
[2017-11-20] MEDS: *HR* Labetalol 20 MG/4 ML SYRINGE IVP PRN (11:09)
--- NOTE | 2017-11-20 17:23 | Internal Med Progress Note ---
Hospitalist Progress Note - Encounter Date of Encounter: 11/20/17 Time of Encounter: 10:00 - Subjective Interval History: Ms. Manning is a 67-year-old female with past medical history of lung cancer, follows with the cancer center, PR, stent placement, CHF, DM, HLP, and ventral hernia presented to the Ed with complaint of N/V. At the ED, her blood pressure was significantly elevated. Labs showed leukocytosis, hyponatremia, and a slightly elevated troponin. CT abdomen without IV contrast revealed possible small bowel obstruction, stable liver metastasis, and lung cancer. She received IV fluid and antibiotics. Surgery was consulted and recommended NGT to suction with further recommendations to follow. today she she feels better, than yesterday. She reports no bowel movements, her abdominal pain has improved, she has not vomited since last night. she denies N/V/ chest pain, SOB, palpitations, hematemesis. she was seen by surgery team earlier in and reports that she had a barium study done. currently not hungry. pain free. - Exam Vitals: Temp Pulse Resp BP Pulse Ox 98.3 F 141 16 143/79 92 11/20/17 11:13 11/20/17 11:13 11/20/17 11:13 11/20/17 11:13 11/20/17 11:13 Exam: General: Patient is alert, oriented, no acute distress, Head: atraumatic, normocephalic, Eye: normal appearance, PERRL, no scleral icterus, no conjunctival injection ENT: mucous membranes moist, normal external ear exam Neck: normal inspection, trachea midline, full ROM, no carotid bruits Chest: normal inspection, symmetric chest rise Respiratory: Good respiratory effort. Bilateral breath sounds are clear without wheezing, crackles, or rhonchi. Cardiovascular: irregularly irregular s1 and s2 No clicks, rubs, gallops, or murmors. Abdomen: BSve, LLQ pain, soft but tender to palpation. reducible epigastric hernia musculoskeletal: Spontaneously moving all extremities. Skin: warm, dry, intact. Neuro: Alert and oriented x4. Sensation light touch intact. Cranial nerves 2- 12 is intact. Psych: Patient's affect is normal - Assessment and Plan (1) Small bowel obstruction Current Visit: Yes Status: Acute Assessment and Plan: S/P Small Bowel follow through with barium ordered by surgery team- awaiting results NPO NGT to suction IV fluids will continue zosyn surgery onbaord will follow recommendations (2) Hypothyroidism Current Visit: No Status: Chronic Assessment and Plan: Continue home medication once she is not NPO (3) Hyperlipemia Current Visit: No Status: Chronic Assessment and Plan: Continue home medications.once she is not NPO (4) Paroxysmal atrial fibrillation Current Visit: No Status: Chronic Assessment and Plan: on labetolol IV push PRN for Afib with RVR will continue to hold xarelto (5) Elevated troponin Current Visit: Yes Status: Acute Assessment and Plan: secondary to Afib with RVR and supply vs. mismatch has been chest pain free since admission (6) Diastolic CHF, chronic Current Visit: No Status: Chronic Assessment and Plan: was dehydrated NPO will continue IVF will consider IV lasix if she developes volume overload (7) Lung cancer Current Visit: No Status: Chronic Assessment and Plan: Patient follow-up with cancer center. S/p Chemo 11/16/17 oncology consulted will follow recommendations (8) Metastatic lung cancer (metastasis from lung to other site) Current Visit: No Status: Chronic Assessment and Plan: Patient follow-up with cancer center oncology consulted will follow recommendations. (9) COPD (chronic obstructive pulmonary disease) Current Visit: No Status: Chronic Assessment and Plan: Continue home medications. (10) Leukocytosis Current Visit: Yes Status: Acute Assessment and Plan: CT did not reveal bowel perforation, blood culture pending, continue empirical antibiotics with IV Zosyn. (11) Diabetes mellitus Current Visit: Yes Status: Acute Assessment and Plan: insulin SS. (12) DVT prophylaxis Current Visit: Yes Status: Acute Assessment and Plan: SCDs DVT Prophylaxis: SCDs - Time Spent with Patient Total time spent is greater than 50% in coordination of care (as documented) at patient's floor/unit and/or counseling patient: Plan of Care Discussed with: nurse Internal Medicine: Result - Labs CBC & Chem 7: 11/20/17 05:26 11/20/17 05:26 Labs: Short CBC 11/20/17 Range/Units 05:26 WBC 24.4 H (4.3-11.1) K/mcL Hgb 9.2 L D (11.5-15.4) g/dL Hct 28.6 L (35.3-44.9) % Plt Count 213 (140-400) K/mcL Neutrophils # 19.5 H (1.6-8.9) K/mcL BMP 11/20/17 05:26 Sodium 128 L Potassium 3.4 L Chloride 97 L Carbon Dioxide 21 L BUN 8 Creatinine 0.44 L Glucose 121 H Calcium 9.5 - VTE Documentation of Mechanical Device: Intermittent pneumatic compression device Consult Discharge Plan - Plan Referrals: Marleny Robles, CANCER CENTER DIRECTOR [Primary Care Provider] - (2) Hypothyroidism Qualifiers: Hypothyroidism type: unspecified Qualified Code(s): E03.9 - Hypothyroidism, unspecified (3) Hyperlipemia Qualifiers: Hyperlipidemia type: unspecified Qualified Code(s): E78.5 - Hyperlipidemia, unspecified (7) Lung cancer Qualifiers: Laterality: left Lung location: lower lobe of lung Qualified Code(s): C34.32 - Malignant neoplasm of lower lobe, left bronchus or lung (8) Metastatic lung cancer (metastasis from lung to other site) Qualifiers: Laterality: unspecified laterality Qualified Code(s): C34.90 - Malignant neoplasm of unspecified part of unspecified bronchus or lung (9) COPD (chronic obstructive pulmonary disease) Qualifiers: COPD type: unspecified COPD Qualified Code(s): J44.9 - Chronic obstructive pulmonary disease, unspecified (10) Leukocytosis Qualifiers: Leukocytosis type: unspecified Qualified Code(s): D72.829 - Elevated white blood cell count, unspecified (11) Diabetes mellitus Qualifiers: Diabetes mellitus type: type 2 Diabetes mellitus custodial insulin use: unspecified long term care pharmacist insulin use status Diabetes mellitus complication status : with unspecified complications Qualified Code(s): E11.8 - Type 2 diabetes mellitus with unspecified complications
--- NOTE | 2017-11-20 17:23 | Oncology Inp Consult Note ---
<Nessa Isaacs - Last Filed: 11/20/17 17:35> Date of Encounter: 11/20/17 Assessment and Plan (1) Small bowel obstruction Status: Acute (3) Paroxysmal atrial fibrillation Status: Chronic (4) Hypothyroidism Status: Chronic Qualifiers: Hypothyroidism type: unspecified Qualified Code(s): E03.9 - Hypothyroidism , unspecified (5) Hyperlipemia Status: Chronic Qualifiers: Hyperlipidemia type: unspecified Qualified Code(s): E78.5 - Hyperlipidemia , unspecified (6) Elevated troponin Status: Acute (7) Diastolic CHF, chronic Status: Chronic (8) Lung cancer Status: Chronic Qualifiers: Laterality: left Lung location: lower lobe of lung Qualified Code(s): C34.32 - Malignant neoplasm of lower lobe, left bronchus or lung (9) Metastatic lung cancer (metastasis from lung to other site) Status: Chronic Qualifiers: Laterality: unspecified laterality Qualified Code(s): C34.90 - Malignant neoplasm of unspecified part of unspecified bronchus or lung (10) COPD (chronic obstructive pulmonary disease) Status: Chronic Qualifiers: COPD type: unspecified COPD Qualified Code(s): J44.9 - Chronic obstructive pulmonary disease, unspecified (11) Leukocytosis Status: Acute Qualifiers: Leukocytosis type: unspecified Qualified Code(s): D72.829 - Elevated white blood cell count, unspecified (12) Diabetes mellitus Status: Acute Qualifiers: Diabetes mellitus type: type 2 Diabetes mellitus terminal manager insulin use: unspecified [place] [facility] insulin use status Diabetes mellitus complication status : with unspecified complications Qualified Code(s): E11.8 - Type 2 diabetes mellitus with unspecified complications (13) DVT prophylaxis Status: Acute - Data of Consult Requesting Physician: Nessa Isaacs MD Primary Care Provider: Marleny Robles CNP - Consult Narrative History of present illness: Ms. Manning is a 67 year old female Medications and Allergies Furosemide [Lasix] 80 mg PO DAILY 04/20/15 [History] Hydroxychloroquine [Plaquenuil] 200 mg PO BID 04/20/15 [History] Levothyroxine [Synthroid] 37.5 mcg PO 0630 04/20/15 [History] Potassium Chloride 10 meq PO DAILY 04/20/15 [History] Sertraline [Zoloft] 200 mg PO DAILY 04/20/15 [History] Tizanidine HCl [Zanaflex] 4 mg PO TID PRN 04/20/15 [History] Aspirin 81 mg PO DAILY #30 tab.chew 04/28/15 [Rx] Atorvastatin [Lipitor] 40 mg PO HS 30 Days tablet 04/28/15 [Rx] Albuterol Sulfate [Proair Hfa] 2 puff IH Q4H PRN 06/10/15 [History] Ascorbic Acid [Vitamin C] 250 mg PO DAILY 06/10/15 [History] Calcium Carbonate/Vitamin D3 [Calcium 600 + Vit D Softgel] 1 each PO BID [History] Cholecalciferol (D-3) [Vitamin D] 2,000 unit PO BID 06/10/15 [History] Cyanocobalamin (Vitamin B-12) [Vitamin B-12] 2,500 mcg SL DAILY 06/10/15 [ History] Nitroglycerin [Nitrostat] 0.4 mg SL Q5M PRN 06/10/15 [History] Mobile-3 Fatty Acids [Fish Oil] 1,000 mg PO BID 06/10/15 [History] Rivaroxaban [Xarelto] 20 mg PO DAILY 06/10/15 [History] Acetaminophen [Tylenol] 325 mg PO Q6HR PRN 03/28/17 [History] Budesonide/Formoterol 160/4.5 [Symbicort 160/4.5] 2 puff IH BIDR 03/28/17 [ History] Lidocaine Patch [Lidoderm 5% patch] 2 each TP DAILY 03/28/17 [History] Simethicone [Gas Relief] 125 mg PO QID PRN 03/28/17 [History] Tiotropium [Spiriva] 1 inh IH DAILY 03/28/17 [History] Vitamin B Complex [B Complex] 1 each PO DAILY 03/28/17 [History] guaiFENesin [Guaifenesin] 600 mg PO DAILY PRN 03/28/17 [History] Lidocaine/Prilocaine CREAM [Emla] 5 gm TP ONCE #1 tube 04/06/17 [Rx] Metoprolol XL (24 HR) Succ [Toprol Xl] 100 mg PO DAILY 06/12/17 [History] Loperamide [Imodium] 2 mg PO Q4HR #120 capsule 09/07/17 [Rx] Ondansetron [Zofran] 8 mg PO Q8HR PRN #90 tablet 09/07/17 [Rx] Magic Mouthwash [Magic Mouthwash BLM] 10 ml PO QID PRN #240 ml 10/19/17 [Rx] Dexamethasone [Decadron] 4 mg PO BID #36 tab 11/16/17 [Rx] Prochlorperazine Maleate [Compazine] 10 mg PO Q8HR PRN #90 tablet 11/16/17 [Rx] Tramadol HCl [Ultram] 50 mg PO TID PRN 30 Days #90 tab 11/16/17 [Rx] Zolpidem [Ambien] 5 mg PO HS PRN 30 Days #30 tablet 11/16/17 [Rx] 3 Allergy/AdvReac Type Severity Reaction Status Date / Time duloxetine [From Cymbalta] Allergy Itching Verified 11/16/17 12:46 Metaxalone [From Skelaxin] Allergy Itching Verified 11/16/17 12:46 valdecoxib [From Bextra] Allergy Itching Verified 11/16/17 12:46 bupropion [From Wellbutrin] AdvReac See Verified 11/16/17 12:46 Comments meperidine [From Demerol] AdvReac Nausea Verified 11/16/17 12:46 pentazocine [From Talwin] AdvReac See Verified 11/16/17 12:46 Comments eggs AdvReac Abdominal Uncoded 11/16/17 12:46 Pain Oncology - Exam - Constitutional Vitals: Temp Pulse Resp BP Pulse Ox 98.3 F 141 16 143/79 92 11/20/17 11:13 11/20/17 11:13 11/20/17 11:13 11/20/17 11:13 11/20/17 11:13 Oncology - Results Labs: 3 11/20/17 11/20/17 11/20/17 12:38 05:31 05:26 WBC RBC Hgb Hct MCV MCH MCHC RDW Plt Count MPV Seg Neutrophils % Band Neutrophils % Lymphocytes % Metamyelocytes % Myelocytes % Neutrophils # Lymphocytes # Nucleated RBCs/100 WBC Toxic Granulation Platelet Estimate Large Platelets Anisocytosis Microcytosis Macrocytosis Sodium 128 L Potassium 3.4 L Chloride 97 L Carbon Dioxide 21 L BUN 8 Creatinine 0.44 L Est GFR ( Amer) > 60 Est GFR (Non-Af Amer) > 60 BUN/Creatinine Ratio 18 Glucose 121 H POC Glucose 143 H 124 H Calculated Osmolality 266 L Calcium 9.5 Magnesium 1.7 3 11/20/17 11/20/17 11/19/17 05:26 04:41 23:35 WBC 24.4 H RBC 3.74 L Hgb 9.2 L D Hct 28.6 L MCV 76.5 L MCH 24.6 L MCHC 32.2 RDW 21.7 H Plt Count 213 MPV 9.7 Seg Neutrophils % 64.0 Band Neutrophils % 16.0 H Lymphocytes % 10.0 Metamyelocytes % 4.0 H Myelocytes % 6.0 H Neutrophils # 19.5 H Lymphocytes # 2.4 Nucleated RBCs/100 WBC 0.1 H Toxic Granulation Present A Platelet Estimate Normal Large Platelets Present A Anisocytosis 3+ A Microcytosis Present A Macrocytosis Present A Sodium Potassium Chloride Carbon Dioxide BUN Creatinine Est GFR ( Amer) Est GFR (Non-Af Amer) BUN/Creatinine Ratio Glucose POC Glucose 126 H 151 H Calculated Osmolality Calcium Magnesium Consult Discharge Plan - Plan Referrals: Marleny Robles, PROGRAM DEVELOPMENT SPECIALIST [Primary Care Provider] - <Estefanía Ortega - Last Filed: 11/21/17 09:56> Date of Encounter: 11/20/17 Time of Encounter: 16:30 Assessment and Plan (1) Lung cancer Status: Chronic Assessment and plan: Small cell lung cancer, Stage IV Treatment history includes carboplatin/etoposide 04/18/17-08/01/17 x6 cycles, Irinotecan 09/07/17 x4 until 11/07/17 with progressive liver lesions treatment most recently changed to Taxotere Q3W cycle #1 11/16/2017. Plan: Patient reports tolerating taxotere quite poorly, she has radiographic evidence of further disease progression, considering palliative care versus hospice consultation Will continue to discuss options and consider inpatient palliative care consult if warranted Qualifiers: Laterality: left Lung location: lower lobe of lung Qualified Code(s): C34.32 - Malignant neoplasm of lower lobe, left bronchus or lung (2) Small bowel obstruction Status: Acute Assessment and plan: Managed per surgery Planning for small bowel follow through IVF and electrolyte monitoring/replacement NGT to suction She reports an improvement in her symptoms since admission, no BM or passing gas Patient reports h/o multiple hernia repairs, gastric bypass - Data of Consult Patient: known to practice within the last 3 years Consult date: 11/20/17 Requesting Physician: Nessa Isaacs MD Primary Care Provider: Marleny Robles CNP - Consult Narrative Reason for consult: Small cell lung cancer History of present illness: Ms. Manning is a 67 year old female currently undergoing treatment for Stage IV small cell lung cancer, with left lung nodules, bilateral mediastinal nodes, and progressive liver lesions as well as paraesophageal lymph node. Treatment history includes carboplatin/etoposide 04/18/17-08/01/17 x6 cycles, Irinotecan x4 until 11/07/17 with progressive liver lesions treatment most recently changed to Taxotere Q3W cycle #1 11/16/2017. She presented to [facility] ER with nausea and vomiting of large amounts of brown vomit, she cannot remember her last normal BM but had a liquid BM on Sunday which she believed to be secondary to her chemotherapy. Labs on admission show leukocytosis, hyponatremia, and a slightly elevated troponin. CT abdomen without IV contrast revealed possible small bowel obstruction along with progressive liver lesions in comparison to prior imaging. Past Med Surg Social Fam HX - Past Medical History Medical history: arthritis, asthma, atrial fibrillation, cancer, CHF, COPD, DVT , hypertension, kidney stones, myocardial infarction, peripheral artery disease , RA, thyroid disease, other Additional medical history: Glomerulonephritis. Pulmonary Nodule. Osteoarthritis. Fibrocistic Breast Disease. Spinal Stenosis. TIA. SD x2. CAD. Cologard positive Psychiatric history: depression - Past Surgical History Surgical History: angioplasty/stent, appendectomy, breast surgery, , cholecystectomy, herniorrhaphy, orthopedic, other, other Additional surgical history: ORIF Right Ankle. Gastric Bypass. Heart stents - Social History Smoking Status: Former smoker Smokeless Tobacco Status: No Alcohol use: none Drug use: none - Family History Brother Living Status: Still Living Hx Family Cancer: Yes (Lung cancer with metastasis to the brain) Sister Living Status: Still Living Hx Family Endocrine Disorder: Yes (Thyroid disease) Daughter Adopted: No Living Status: Still Living Hx Family Neurologic Disorders: Yes (stroke x2) Father Living Status: Hx Family Cardiac Disorders: Yes (hypertension) Mother Adopted: No Family Member Ethnicity: Non- Living Status: Hx Family Cardiac Disorders: Yes (CHF) Hx Family Respiratory Disorders: No Hx Family Cancer: Yes (breast) Hx Family GI Disorders: No Hx Family Endocrine Disorder: Yes (goiter removal) Hx Family Neuromuscular Disorders: No Hx Family Neurologic Disorders: Yes (seizures from meningioma) Hx Family HEENT Disorders: Yes (cataracts) Hx Family Autoimmune Disorders: No Constitutional: Present: anorexia, fatigue, weakness, weight loss. Absent: chills, fever(s) Eyes: Absent: change in vision Nose, mouth and throat: Absent: dysphagia Cardiovascular: Present: as per HPI. Absent: chest pain Respiratory: Present: as per HPI, dyspnea on exertion Gastrointestinal: Present: as per HPI, bloating, constipation, nausea, vomiting. Absent: abdominal pain, hematemesis, hematochezia, melena Genitourinary: Absent: dysuria Musculoskeletal: Present: muscle weakness Integumentary: Absent: rash, wounds Neurological: Absent: focal weakness, frequent falls Hematologic/Lymphatic: Present: as per HPI Oncology - Exam - Constitutional Vitals: Temp Pulse Resp BP Pulse Ox 98.3 F 141 16 143/79 92 11/20/17 11:13 11/20/17 11:13 11/20/17 11:13 11/20/17 11:13 11/20/17 11:13 General appearance: cooperative, no acute distress, no febrile - Head Head exam: Present: atraumatic - ENT ENT exam: Present: mucous membranes moist - Respiratory Respiratory exam: Present: decreased breath sounds, CTAB. Absent: respiratory distress - Cardiovascular Cardiovascular exam: Present: RRR, +S1, +S2 - GI/Abdominal Additional comments: slightly distended and tender to palpation, abdominal hernia present, bowel sounds hypoactive but present, no acute abdomen - Extremities Exam Extremities exam: Present: normal inspection. Absent: calf tenderness - Neurological Exam Neurological exam: Present: alert, oriented X3, no focal deficits, strengths equal and symetr throughout - Psychiatric Psychiatric exam: Present: normal affect, normal mood - Skin Skin exam: Present: dry, intact, normal color, warm Oncology - Results Labs: 3 11/20/17 11/20/17 11/20/17 12:38 05:31 05:26 WBC RBC Hgb Hct MCV MCH MCHC RDW Plt Count MPV Seg Neutrophils % Band Neutrophils % Lymphocytes % Metamyelocytes % Myelocytes % Neutrophils # Lymphocytes # Nucleated RBCs/100 WBC Toxic Granulation Platelet Estimate Large Platelets Anisocytosis Microcytosis Macrocytosis Sodium 128 L Potassium 3.4 L Chloride 97 L Carbon Dioxide 21 L BUN 8 Creatinine 0.44 L Est GFR ( Amer) > 60 Est GFR (Non-Af Amer) > 60 BUN/Creatinine Ratio 18 Glucose 121 H POC Glucose 143 H 124 H Calculated Osmolality 266 L Calcium 9.5 Magnesium 1.7 3 11/20/17 11/20/17 11/19/17 05:26 04:41 23:35 WBC 24.4 H RBC 3.74 L Hgb 9.2 L D Hct 28.6 L MCV 76.5 L MCH 24.6 L MCHC 32.2 RDW 21.7 H Plt Count 213 MPV 9.7 Seg Neutrophils % 64.0 Band Neutrophils % 16.0 H Lymphocytes % 10.0 Metamyelocytes % 4.0 H Myelocytes % 6.0 H Neutrophils # 19.5 H Lymphocytes # 2.4 Nucleated RBCs/100 WBC 0.1 H Toxic Granulation Present A Platelet Estimate Normal Large Platelets Present A Anisocytosis 3+ A Microcytosis Present A Macrocytosis Present A Sodium Potassium Chloride Carbon Dioxide BUN Creatinine Est GFR ( Amer) Est GFR (Non-Af Amer) BUN/Creatinine Ratio Glucose POC Glucose 126 H 151 H Calculated Osmolality Calcium Magnesium <ArronRufino [email or web address] - Last Filed: 11/21/17 18:14> Date of Encounter: 11/21/17 - Data of Consult Requesting Physician: Nessa Isaacs MD Primary Care Provider: Marleny Robles CNP - Consult Narrative History of present illness: I examined this patient and my medical decision-making was reviewed with the Advanced Practice Nurse, Estefanía Ortega. I agree with the documented findings, disposition and treatment plan as described except to the extent set forth below. Oncology - Exam - Constitutional Vitals: Temp Pulse Resp BP Pulse Ox 98.5 F 99 14 147/72 96 11/21/17 14:40 11/21/17 14:40 11/21/17 14:40 11/21/17 14:40 11/21/17 14:40 Oncology - Results Labs: 3 11/21/17 11/21/17 11/21/17 11:31 05:57 05:31 WBC RBC Hgb Hct MCV MCH MCHC RDW Plt Count MPV Immature Gran % Seg Neutrophils % Band Neutrophils % Lymphocytes % Monocytes % Eosinophils % Basophils % Metamyelocytes % Myelocytes % Neutrophils # Lymphocytes # Monocytes # Eosinophils # Basophils # Nucleated RBCs/100 WBC Toxic Granulation Platelet Estimate Large Platelets Anisocytosis Microcytosis Macrocytosis Sodium Potassium Chloride Carbon Dioxide BUN Creatinine Est GFR ( Amer) Est GFR (Non-Af Amer) BUN/Creatinine Ratio Glucose POC Glucose 112 H 105 H Calculated Osmolality Calcium Phosphorus Magnesium 1.8 3 11/21/17 11/21/17 11/20/17 05:31 05:31 17:58 WBC 20.2 H RBC 3.61 L Hgb 9.1 L Hct 28.1 L MCV 77.8 L MCH 25.2 L MCHC 32.4 RDW 21.8 H Plt Count 195 MPV 9.7 Immature Gran % Test Not Performed Seg Neutrophils % 70.0 Band Neutrophils % 4.0 Lymphocytes % 16.0 Monocytes % 6.0 Eosinophils % Test Not Performed Basophils % Test Not Performed Metamyelocytes % 4.0 H Myelocytes % Neutrophils # 15.0 H Lymphocytes # 3.2 Monocytes # 1.2 Eosinophils # Test Not Performed Basophils # Test Not Performed Nucleated RBCs/100 WBC 0.1 H Toxic Granulation Platelet Estimate Normal Large Platelets Anisocytosis Microcytosis Macrocytosis Sodium 134 L Potassium 3.2 L Chloride 105 Carbon Dioxide 20 L BUN 6 L Creatinine 0.40 L Est GFR ( Amer) > 60 Est GFR (Non-Af Amer) > 60 BUN/Creatinine Ratio 15 Glucose 115 H POC Glucose 127 H Calculated Osmolality 277 L Calcium 9.4 Phosphorus 2.9 Magnesium 3 11/20/17 11/20/17 11/20/17 12:38 05:31 05:26 WBC RBC Hgb Hct MCV MCH MCHC RDW Plt Count MPV Immature Gran % Seg Neutrophils % Band Neutrophils % Lymphocytes % Monocytes % Eosinophils % Basophils % Metamyelocytes % Myelocytes % Neutrophils # Lymphocytes # Monocytes # Eosinophils # Basophils # Nucleated RBCs/100 WBC Toxic Granulation Platelet Estimate Large Platelets Anisocytosis Microcytosis Macrocytosis Sodium 128 L Potassium 3.4 L Chloride 97 L Carbon Dioxide 21 L BUN 8 Creatinine 0.44 L Est GFR ( Amer) > 60 Est GFR (Non-Af Amer) > 60 BUN/Creatinine Ratio 18 Glucose 121 H POC Glucose 143 H 124 H Calculated Osmolality 266 L Calcium 9.5 Phosphorus Magnesium 1.7 3 11/20/17 11/20/17 11/19/17 05:26 04:41 23:35 WBC 24.4 H RBC 3.74 L Hgb 9.2 L D Hct 28.6 L MCV 76.5 L MCH 24.6 L MCHC 32.2 RDW 21.7 H Plt Count 213 MPV 9.7 Immature Gran % Seg Neutrophils % 64.0 Band Neutrophils % 16.0 H Lymphocytes % 10.0 Monocytes % Eosinophils % Basophils % Metamyelocytes % 4.0 H Myelocytes % 6.0 H Neutrophils # 19.5 H Lymphocytes # 2.4 Monocytes # Eosinophils # Basophils # Nucleated RBCs/100 WBC 0.1 H Toxic Granulation Present A Platelet Estimate Normal Large Platelets Present A Anisocytosis 3+ A Microcytosis Present A Macrocytosis Present A Sodium Potassium Chloride Carbon Dioxide BUN Creatinine Est GFR ( Amer) Est GFR (Non-Af Amer) BUN/Creatinine Ratio Glucose POC Glucose 126 H 151 H Calculated Osmolality Calcium Phosphorus Magnesium
[2017-11-21] MEDS: OXYCODONE Oral CONC 10 MG/0.5 ML ORAL.SYG SL PRN ×3 (00:49→20:41)
[2017-11-21] MEDS: Piperacillin/Tazobactam 3.375 GM in 0.9 % Sodium Chloride Mini Bag 100 ML IVPB SCH ×3 (00:49→17:18)
[2017-11-21 05:49] LABS: Hematocrit 28.1 % (35.3-44.9); Hemoglobin 9.1 g/dL (11.5-15.4); Mean Corpuscular HGB Conc 32.4 g/dL (31.6-35.5); Mean Corpuscular Hemoglobin 25.2 pg (28.0-33.3); Mean Corpuscular Volume 77.8 fL (83.0-100.0); Mean Platelet Volume 9.7 fL (9.4-12.4); Nucleated Red Blood Cells 0.1 /100 WBC (0); Platelet Count 195 K/mcL (140-400); Red Blood Count 3.61 M/mcL (3.82-4.97); Red Cell Distribution Width 21.8 % (11.5-14.5)
[2017-11-21 06:10] LABS: BUN/Creatinine Ratio 15 (6-26); Blood Urea Nitrogen 6 mg/dL (8-23); Calcium 9.4 mg/dL (8.6-10.3); Carbon Dioxide 20 mEq/L (23-29); Chloride 105 mEq/L (98-107); Glucose 115 mg/dL (70-105); Osmolality,Calculated 277 (280-300); Potassium 3.2 mEq/L (3.5-5.1); Sodium 134 mEq/L (136-145); eGFR For Non-African Americans > 60 (> 60)
[2017-11-21] MEDS: Insulin LISPRO 300 UNITS/3 ML VIAL SQ SCH ×4 (06:25→17:59)
[2017-11-21] MEDS: Levothyroxine 25 MCG TABLET PO SCH (06:27)
--- NOTE | 2017-11-21 07:47 | General Surgery Progress Note ---
<Danette Huerta E - Last Filed: 11/21/17 07:45> Date of Encounter: 11/21/17 Time of Encounter: 07:46 - Assessment and Plan (1) Small bowel obstruction Current Visit: Yes Status: Acute small bowel follow through FINDINGS: Sp[place] image shows significantly dilated small bowel. There is significantly delayed transit time to the colon. Contrast opacification of the ascending colon is visualized at approximately 12 hours following contrast administration. Contrast filling of nondilated small bowel is visualized at 8.5 hours. XR/XR small bowel FT w/ barium IMPRESSION: Marked small bowel dilation and delayed small bowel transit time. Will continue to monitor Possible surgical intervention if need be Will start TPN today Stimulant will be prescribed NPO NGT to suction IV fluids and IV antibiotics as per primary (2) Metastatic lung cancer (metastasis from lung to other site) Current Visit: No Status: Chronic Qualifiers: Laterality: unspecified laterality Qualified Code(s): C34.90 - Malignant neoplasm of unspecified part of unspecified bronchus or lung (3) Paroxysmal atrial fibrillation Current Visit: No Status: Chronic Subjective Patient reports: no flatus, no bowel movement Objective Vital Signs - Last 8 Hours Temp Pulse Resp BP Pulse Ox 11/21/17 06:59 98.6 F 107 14 162/81 98 11/21/17 03:43 99.3 F 111 14 167/78 95 11/21/17 00:11 99 F 112 14 137/66 93 Intake and Output 11/20/17 11/20/17 11/21/17 15:59 23:59 07:59 Intake Total 1200 / 1200 1100 / 1100 0 / 0 Output Total 550 / 550 1050 / 1050 Balance 1200 / 1200 550 / 550 -1050 / -1050 Intake: IV Fluids 1200 / 1200 1100 / 1100 0.9 % Sodium Chloride 1,000 ML 1000 / 1000 1000 / 1000 @ 125 mls/hr IVC .Q8H [facility] Rx#: [id number] Zosyn 3.375 GM In 0.9 % Sodium 100 / 100 100 / 100 Chloride (Mini-Bag +) 100 ML @ 25 mls/hr IVPB Q8HR [facility] Rx#: [id number] Potassium Chloride 10 mEq/100mL 100 / 100 10 meq In 100 ml @ 100 mls/hr IVPB Q1H [facility] Rx#:[id number] Oral 0 / 0 0 / 0 Output: Urine 250 / 250 Catheter 550 / 550 550 / 550 Gastric Drainage 250 / 250 Other: Meal NPO NPO NPO Percent of Meal Consumed 0% 0% # Bowel Movements 0 Weight 92.7 kg Blood Glucose* 143 122 105 Patient Weight 11/21/17 23:59 Weight 92.7 kg - General physical appearance well developed, well nourished, moderate distress, moderate pain - Respiratory normal expansion, normal respiratory effort, clear to auscultation - Cardiovascular Cardiovascular exam: Present: tachycardia, no murmurs/rubs/gallops - Abdomen Abdomen: Present: bowel sounds present, distended. Absent: guarding, rebound - Integumentary no rash, no growths, no abnormal pigmentation - Musculoskeletal normal posture - Psychiatric oriented to time, oriented to person, oriented to place - Labs 11/21/17 05:31 11/21/17 05:31 Diabetes panel 11/21/17 Range/Units 05:31 Sodium 134 L (136-145) mEq/L Potassium 3.2 L (3.5-5.1) mEq/L Chloride 105 (98-107) mEq/L Carbon Dioxide 20 L (23-29) mEq/L BUN 6 L (8-23) mg/dL Creatinine 0.40 L (0.60-1.20) mg/dL Glucose 115 H (70-105) mg/dL Calcium 9.4 (8.6-10.3) mg/dL Calcium panel 11/21/17 Range/Units 05:31 Calcium 9.4 (8.6-10.3) mg/dL Pituitary panel 11/21/17 Range/Units 05:31 Sodium 134 L (136-145) mEq/L Potassium 3.2 L (3.5-5.1) mEq/L Chloride 105 (98-107) mEq/L Carbon Dioxide 20 L (23-29) mEq/L BUN 6 L (8-23) mg/dL Creatinine 0.40 L (0.60-1.20) mg/dL Glucose 115 H (70-105) mg/dL Calcium 9.4 (8.6-10.3) mg/dL Adrenal panel 11/21/17 Range/Units 05:31 Sodium 134 L (136-145) mEq/L Potassium 3.2 L (3.5-5.1) mEq/L Chloride 105 (98-107) mEq/L Carbon Dioxide 20 L (23-29) mEq/L BUN 6 L (8-23) mg/dL Creatinine 0.40 L (0.60-1.20) mg/dL Glucose 115 H (70-105) mg/dL Calcium 9.4 (8.6-10.3) mg/dL - VTE Documentation of Mechanical Device: Intermittent pneumatic compression device Consult Discharge Plan - Plan Referrals: Marleny Robles, ASPHALT SPREADER OPERATOR [Primary Care Provider] - <Desmond Palmer - Last Filed: 11/22/17 09:20> Date of Encounter: 11/21/17 Objective Vital Signs - Last 8 Hours Temp Pulse Resp BP Pulse Ox 11/22/17 07:22 98.3 F 101 15 165/86 95 11/22/17 04:09 98.8 F 106 16 149/68 95 Intake and Output 11/21/17 11/22/17 11/22/17 23:59 07:59 15:59 Intake Total 154 / 154 404 / 404 Output Total 1200 / 1200 1000 / 1000 Balance -1046 / -1046 -596 / -596 Intake: IV Fluids 154 / 154 404 / 404 Intralipid 20% 250 ML @ 21 mls/ 250 / 250 hr IVPB DAILY@1700 [facility] Rx#: [id number] Reglan 20 MG In 0.9 % Sodium 54 / 54 54 / 54 Chloride 50 ML @ 108 mls/hr IVPB Q8H [facility] Rx#:[id number] Zosyn 3.375 GM In 0.9 % Sodium 100 / 100 100 / 100 Chloride (Mini-Bag +) 100 ML @ 25 mls/hr IVPB Q8HR [facility] Rx#: [id number] Oral 0 / 0 0 / 0 Output: Catheter 1200 / 1200 1000 / 1000 Gastric Drainage 0 / 0 0 / 0 Other: Meal NPO Percent of Meal Consumed 0% # Bowel Movements 0 1 Blood Glucose* 136 136 - Labs 11/22/17 03:55 11/22/17 03:55 Diabetes panel 11/22/17 11/22/17 Range/Units 03:55 03:55 Sodium 135 L (136-145) mEq/L Potassium 2.9 L (3.5-5.1) mEq/L Chloride 107 (98-107) mEq/L Carbon Dioxide 19 L (23-29) mEq/L BUN 7 L (8-23) mg/dL Creatinine 0.38 L (0.60-1.20) mg/dL Glucose 122 H (70-105) mg/dL Calcium 8.5 L (8.6-10.3) mg/dL Triglycerides 73 (< 150) mg/dL Calcium panel 11/22/17 11/22/17 Range/Units 03:55 03:55 Calcium 8.5 L (8.6-10.3) mg/dL Phosphorus 2.8 (2.7-4.5) mg/dL Pituitary panel 11/22/17 Range/Units 03:55 Sodium 135 L (136-145) mEq/L Potassium 2.9 L (3.5-5.1) mEq/L Chloride 107 (98-107) mEq/L Carbon Dioxide 19 L (23-29) mEq/L BUN 7 L (8-23) mg/dL Creatinine 0.38 L (0.60-1.20) mg/dL Glucose 122 H (70-105) mg/dL Calcium 8.5 L (8.6-10.3) mg/dL Adrenal panel 11/22/17 Range/Units 03:55 Sodium 135 L (136-145) mEq/L Potassium 2.9 L (3.5-5.1) mEq/L Chloride 107 (98-107) mEq/L Carbon Dioxide 19 L (23-29) mEq/L BUN 7 L (8-23) mg/dL Creatinine 0.38 L (0.60-1.20) mg/dL Glucose 122 H (70-105) mg/dL Calcium 8.5 L (8.6-10.3) mg/dL - Attending Attestation I examined this patient and my medical decision-making was reviewed with the Resident Physician. I agree with the documented findings, disposition and treatment plan as described except to the extent set forth below. The patient is seen and evaluated on morning rounds with resident. The patient' s care is discussed clinical nurse practitioner the contrast is through the colon at 12 hours. This is a markedly delayed transit time. I would like to give the patient a little more time to try and clear with conservative measures. If this fails palliative bypass will be required Desmond Palmer MD FACS
[2017-11-21] MEDS: Tiotropium 18 MCG inhalation IH SCH (07:59)
[2017-11-21] MEDS: Budesonide/Formoterol 160/4.5 1 PUFF INH IH SCH ×2 (07:59→19:57)
[2017-11-21] MEDS: 0.9 % Sodium Chloride 1,000 ML IVC SCH (08:03)
--- NOTE | 2017-11-21 08:55 | Internal Med Progress Note ---
Hospitalist Progress Note - Encounter Date of Encounter: 11/21/17 Time of Encounter: 08:52 - Subjective Interval History: Patient was seen and examined at bedside. She reports that she slept well. Was evaluated by surgery this morning who told her that she still is obstructed. She reports that they have prescribed some stimulants and are hopeful that she will move her bowels if not they have discussed surgery with her. Today she feels as though she is more bloated, denies passing gas or stools. She denies any nausea or vomiting overnight. She does not have an appetite. She had some palpitations yesterday which were alleviated with the IV medication. Denies fever chills, chest pain, shortness of breath, abdominal pain, lower extremity swelling, calf tenderness, headache or vision changes. - Exam Vitals: Temp Pulse Resp BP Pulse Ox 98.6 F 107 14 162/81 98 11/21/17 06:59 11/21/17 06:59 11/21/17 08:01 11/21/17 06:59 11/21/17 08:01 Exam: General: Patient is alert, oriented, no acute distress, Head: atraumatic, normocephalic, Eye: normal appearance, PERRL, no scleral icterus, no conjunctival injection ENT: mucous membranes moist, normal external ear exam Neck: normal inspection, trachea midline, full ROM, no carotid bruits Chest: normal inspection, symmetric chest rise Respiratory: Good respiratory effort. Bilateral breath sounds are clear without wheezing, crackles, or rhonchi. Cardiovascular: irregularly irregular s1 and s2 No clicks, rubs, gallops, or murmors. Abdomen: BS+ve, LLQ pain, soft but mildly tender to palpation. reducible hernia , midline abdominal scar that is well healed musculoskeletal: Spontaneously moving all extremities. no edema of calf tenderness. Skin: warm, dry, intact. Neuro: Alert and oriented x4. Sensation light touch intact. Cranial nerves 2- 12 is intact. Psych: Patient's affect is normal - Assessment and Plan (1) Small bowel obstruction Current Visit: Yes Status: Acute Assessment and Plan: /small bowel follow through on 11/20/17 IMPRESSION: Marked small bowel dilation and delayed small bowel transit time. Will continue to monitor Possible surgical intervention if need be Will start TPN as per surgery Stimulant prescribed by surgery NPO NGT to suction IV fluids - reduced the dose as she is being started on TPN will continue zosyn surgery onbaord will continue to follow recommendations / (2) Hypokalemia Current Visit: Yes Status: Acute Assessment and Plan: replaced will continue to follow electrolytes daily and replace as needed (3) Paroxysmal atrial fibrillation Current Visit: No Status: Chronic Assessment and Plan: on metoprolol 5mg IVP Q4H for HR control - will resume PO meds once cleared by surgery will continue to hold xarelto as she is NPO will consider starting OAC once she is cleared by surgery to have PO diet (4) Hypothyroidism Current Visit: No Status: Chronic Assessment and Plan: started on IV thyroxine 25 mcg - was on 37.g mg orally at home currently NPO (5) Hyperlipemia Current Visit: No Status: Chronic Assessment and Plan: Continue home medications.once she is not NPO (6) Elevated troponin Current Visit: Yes Status: Acute Assessment and Plan: secondary to Afib with RVR and supply vs. mismatch has been chest pain free since admission has stress test on 12/23/2015- perfusion imaging was negative for ischemia or infarct (7) Diastolic CHF, chronic Current Visit: No Status: Chronic Assessment and Plan: was dehydrated NPO will continue IVF will consider IV lasix if she developes volume overload Had TTE in may 2017- EF 60-65% (8) Lung cancer Current Visit: No Status: Chronic Assessment and Plan: Patient follow-up with [facility]. S/p Chemo 11/16/17 oncology on board will follow recommendations (9) Metastatic lung cancer (metastasis from lung to other site) Current Visit: No Status: Chronic Assessment and Plan: Patient follow-up with [facility] oncology on board will follow recommendations. (10) COPD (chronic obstructive pulmonary disease) Current Visit: No Status: Chronic Assessment and Plan: Continue home medications. (11) Leukocytosis Current Visit: Yes Status: Acute Assessment and Plan: CT did not reveal bowel perforation, blood culture pending, continue empirical antibiotics with IV Zosyn. WBC count is trending down (12) Diabetes mellitus Current Visit: Yes Status: Acute Assessment and Plan: insulin SS. (13) DVT prophylaxis Current Visit: Yes Status: Acute Assessment and Plan: SCDs lovenox for DVT prophylaxis as she has cancer adn is at high risk DVT Prophylaxis: SCDs will start her on lovenox SC for DVT prophylaxis as she has cancer and is at high risk - Time Spent with Patient Total time spent is greater than 50% in coordination of care (as documented) at patient's floor/unit and/or counseling patient: Plan of Care Discussed with: nurse Internal Medicine: Result - Labs CBC & Chem 7: 11/21/17 05:31 11/21/17 05:31 Labs: Short CBC 11/21/17 Range/Units 05:31 WBC 20.2 H (4.3-11.1) K/mcL Hgb 9.1 L (11.5-15.4) g/dL Hct 28.1 L (35.3-44.9) % Plt Count 195 (140-400) K/mcL BMP 11/21/17 05:31 Sodium 134 L Potassium 3.2 L Chloride 105 Carbon Dioxide 20 L BUN 6 L Creatinine 0.40 L Glucose 115 H Calcium 9.4 - Impressions Impressions Small Bowel X-Ray 11/20/17 07:34 IMPRESSION: Marked small bowel dilation and delayed small bowel transit time. D/ / Albert Escalante MD / Albert Escalante MD Interpreting Provider: Albert Escalante MD - VTE Documentation of Mechanical Device: Intermittent pneumatic compression device Consult Discharge Plan - Plan Referrals: Marleny Robles, CREAM DUMPER [Primary Care Provider] - (4) Hypothyroidism Qualifiers: Hypothyroidism type: unspecified Qualified Code(s): E03.9 - Hypothyroidism, unspecified (5) Hyperlipemia Qualifiers: Hyperlipidemia type: unspecified Qualified Code(s): E78.5 - Hyperlipidemia, unspecified (8) Lung cancer Qualifiers: Laterality: left Lung location: lower lobe of lung Qualified Code(s): C34.32 - Malignant neoplasm of lower lobe, left bronchus or lung (9) Metastatic lung cancer (metastasis from lung to other site) Qualifiers: Laterality: unspecified laterality Qualified Code(s): C34.90 - Malignant neoplasm of unspecified part of unspecified bronchus or lung (10) COPD (chronic obstructive pulmonary disease) Qualifiers: COPD type: unspecified COPD Qualified Code(s): J44.9 - Chronic obstructive pulmonary disease, unspecified (11) Leukocytosis Qualifiers: Leukocytosis type: unspecified Qualified Code(s): D72.829 - Elevated white blood cell count, unspecified (12) Diabetes mellitus Qualifiers: Diabetes mellitus type: type 2 Diabetes mellitus alf insulin use: unspecified alf insulin use status Diabetes mellitus complication status : with unspecified complications Qualified Code(s): E11.8 - Type 2 diabetes mellitus with unspecified complications
[2017-11-21] MEDS: *HR* Labetalol 20 MG/4 ML SYRINGE IVP PRN (09:04)
[2017-11-21] MEDS: Metoclopramide 20 MG in 0.9 % Sodium Chloride 50 ML IVPB SCH ×2 (09:04→17:19)
[2017-11-21 09:06] LABS: Phosphorous 2.9 mg/dL (2.7-4.5)
[2017-11-21 09:19] LABS: Lymphocytes # 3.2 K/mcL (0.6-4.6); Monocytes # 1.2 K/mcL (0.0-1.3); Platelet Estimate Normal (Normal)
[2017-11-21] MEDS ORDERED: D10% in Water 500 ML IVC PRN (10:51)
[2017-11-21] MEDS: *HR* Metoprolol 5 MG/5 ML VIAL IVP SCH ×2 (12:40→18:02)
[2017-11-21] MEDS: Pantoprazole 40 MG VIAL IVP SCH (12:40)
[2017-11-21] MEDS ORDERED: Clinimix E 5%-15% SOLUTION 2,000 ML with MVI, adult with vitamin K 10 ML IVC SCH (17:00)
--- NOTE | 2017-11-21 20:53 | Electrocardiograph Report ---
[address] [place], [place] [address] Test Date: 2017-11-19 Pat Name: Maria Isabel Manning Department: 103 Room: 3A36 Gender: F Sas Programmer: KIP : [id number] Requested By: Allen Tabor Order Number: [id number] Reading MD: Genesis Prieto Measurements Intervals [place] Rate: 104 P: 46 PA: 155 QRS: 19 QRSD: 104 T: 18 QT: 355 QTc: 415 Interpretive Statements SINUS TACHYCARDIA Electronically Signed On 11-21-2017 17:22:55 EDT by Genesis Prieto
[2017-11-22] MEDS: Piperacillin/Tazobactam 3.375 GM in 0.9 % Sodium Chloride Mini Bag 100 ML IVPB SCH ×4 (00:13→23:50)
[2017-11-22] MEDS: *HR* Metoprolol 5 MG/5 ML VIAL IVP SCH ×3 (00:13→10:56)
[2017-11-22] MEDS: Metoclopramide 20 MG in 0.9 % Sodium Chloride 50 ML IVPB SCH ×2 (00:15→10:46)
[2017-11-22] MEDS: 0.9 % Sodium Chloride 1,000 ML IVC SCH ×2 (01:24→11:58)
[2017-11-22] MEDS: Insulin LISPRO 300 UNITS/3 ML VIAL SQ SCH ×4 (01:26→17:05)
[2017-11-22 04:15] LABS: Hematocrit 26.8 % (35.3-44.9); Hemoglobin 8.4 g/dL (11.5-15.4); Mean Corpuscular HGB Conc 31.3 g/dL (31.6-35.5); Mean Corpuscular Hemoglobin 24.6 pg (28.0-33.3); Mean Corpuscular Volume 78.6 fL (83.0-100.0); Platelet Count 167 K/mcL (140-400); Red Blood Count 3.41 M/mcL (3.82-4.97); Red Cell Distribution Width 22.1 % (11.5-14.5)
[2017-11-22 04:32] LABS: BUN/Creatinine Ratio 18 (6-26); Blood Urea Nitrogen 7 mg/dL (8-23); Calcium 8.5 mg/dL (8.6-10.3); Carbon Dioxide 19 mEq/L (23-29); Chloride 107 mEq/L (98-107); Glucose 122 mg/dL (70-105); Osmolality,Calculated 279 (280-300); Potassium 2.9 mEq/L (3.5-5.1); Sodium 135 mEq/L (136-145); eGFR For Non-African Americans > 60 (> 60)
[2017-11-22] MEDS ORDERED: *HR* Enoxaparin 40 MG/0.4 ML SYRINGE SQ SCH (06:00)
[2017-11-22] MEDS ORDERED: Levothyroxine Sodium 100 MCG VIAL IVP SCH (06:30)
[2017-11-22] MEDS: Budesonide/Formoterol 160/4.5 1 PUFF INH IH SCH ×2 (08:06→20:26)
[2017-11-22] MEDS: Tiotropium 18 MCG inhalation IH SCH (08:06)
[2017-11-22] MEDS ORDERED: MOM Conc 10 ML UD.LIQ PO ONE (08:12)
[2017-11-22] MEDS ORDERED: Potassium Chloride 40 MEQ, Lidocaine 1% 2 ML in D5% in Water 500 ML IVPB ONE (08:14)
--- NOTE | 2017-11-22 08:16 | General Surgery Progress Note ---
Date of Encounter: 11/22/17 Time of Encounter: 07:15 - Assessment and Plan (1) Small bowel obstruction Current Visit: Yes Status: Acute Small to moderate soft BM today. Noted small bowel follow-through with barium on 11/20/2017 with significantly delayed transit time to: (8.5 hours) and market small bowel dilatation. Patient states her abdominal discomfort is resolved today, she has passed flatus, and a small bowel movement. She denies nausea or vomiting and states she is thirsty. Plan: Will place NG to saleem. May return to suction if n/v occur. 2V AAS for progression of contrast and bowel gas pattern 30 ML MOM for stimulation Consideration given to miralax daily until daily bowel movements that are mashed potatoes consistency (pending resolution of obstruction). Consideration given to possible surgical intervention if small bowel obstruction does not resolve continue IV fluids and IV antibiotics per primary team okay to DC Saleem catheter from a surgical perspective continue supportive care and discomfort management while awaiting return of bowel function continue G.I. and DVT prophylaxis (2) Paroxysmal atrial fibrillation Current Visit: No Status: Chronic Management per primary team no overt signs of bleeding (3) Metastatic lung cancer (metastasis from lung to other site) Current Visit: No Status: Chronic Per primary team noted oncology recommendations regarding small cell lung cancer stage IV Treatment history includes carboplatin/etoposide 04/18/17-08/01/17 x6 cycles, Irinotecan 09/07/17 x4 until 11/07/17 with progressive liver lesions treatment most recently changed to Taxotere Q3W cycle #1 11/16/2017. Plan: Patient reports tolerating taxotere quite poorly, she has radiographic evidence of further disease progression, considering palliative care versus hospice consultation Will continue to discuss options and consider inpatient palliative care consult if warranted Qualifiers: Laterality: unspecified laterality Qualified Code(s): C34.90 - Malignant neoplasm of unspecified part of unspecified bronchus or lung (4) Ventral hernia without obstruction or gangrene Current Visit: Yes Status: Acute per CT 11/19/2017: Ventral hernia containing mostly fat. No evidence of significant adenopathy. Continue to monitor Subjective Patient reports: no new complaints, feels better, pain is less, voiding w/o difficulty, bowel movement (reports moderate soft BM), afebrile Objective Vital Signs - Last 8 Hours Temp Pulse Resp BP Pulse Ox 11/22/17 07:22 98.3 F 101 15 165/86 95 11/22/17 04:09 98.8 F 106 16 149/68 95 Intake and Output 11/21/17 11/22/17 11/22/17 23:59 07:59 15:59 Intake Total 154 / 154 404 / 404 Output Total 1200 / 1200 1000 / 1000 Balance -1046 / -1046 -596 / -596 Intake: IV Fluids 154 / 154 404 / 404 Intralipid 20% 250 ML @ 21 mls/ 250 / 250 hr IVPB DAILY@1700 ESTHER Rx#: [id number] Reglan 20 MG In 0.9 % Sodium 54 / 54 54 / 54 Chloride 50 ML @ 108 mls/hr IVPB Q8H ESTHER Rx#:[id number] Zosyn 3.375 GM In 0.9 % Sodium 100 / 100 100 / 100 Chloride (Mini-Bag +) 100 ML @ 25 mls/hr IVPB Q8HR ESTHER Rx#: [id number] Oral 0 / 0 0 / 0 Output: Catheter 1200 / 1200 1000 / 1000 Gastric Drainage 0 / 0 0 / 0 Other: Meal NPO Percent of Meal Consumed 0% # Bowel Movements 0 1 Blood Glucose* 136 136 - General physical appearance no distress, no pain, other - Eyes normal ocular movement - ENT atraumatic, normocephalic - Neck Neck exam: trachea midline, no venous distension - Respiratory normal expansion, normal respiratory effort, clear to auscultation - Cardiovascular Cardiovascular exam: Present: RRR, distant heart sounds - Abdomen Abdomen: Present: bowel sounds present (hypoactive), soft, non tender Hernia: reducible - Integumentary no abnormal pigmentation - Neurologic normal coordination, normal sensation - Musculoskeletal normal posture - Psychiatric oriented to time, oriented to person, oriented to place, speech is normal, memory intact - Labs 11/22/17 03:55 11/22/17 03:55 Diabetes panel 11/21/17 11/22/17 11/22/17 Range/Units 05:31 03:55 03:55 Sodium 134 L 135 L (136-145) mEq/L Potassium 3.2 L 2.9 L (3.5-5.1) mEq/L Chloride 105 107 (98-107) mEq/L Carbon Dioxide 20 L 19 L (23-29) mEq/L BUN 6 L 7 L (8-23) mg/dL Creatinine 0.40 L 0.38 L (0.60-1.20) mg/dL Glucose 115 H 122 H (70-105) mg/dL Calcium 9.4 8.5 L (8.6-10.3) mg/dL Triglycerides 73 (< 150) mg/dL Calcium panel 11/21/17 11/22/17 11/22/17 Range/Units 05:31 03:55 03:55 Calcium 9.4 8.5 L (8.6-10.3) mg/dL Phosphorus 2.9 2.8 (2.7-4.5) mg/dL Pituitary panel 11/21/17 11/22/17 Range/Units 05:31 03:55 Sodium 134 L 135 L (136-145) mEq/L Potassium 3.2 L 2.9 L (3.5-5.1) mEq/L Chloride 105 107 (98-107) mEq/L Carbon Dioxide 20 L 19 L (23-29) mEq/L BUN 6 L 7 L (8-23) mg/dL Creatinine 0.40 L 0.38 L (0.60-1.20) mg/dL Glucose 115 H 122 H (70-105) mg/dL Calcium 9.4 8.5 L (8.6-10.3) mg/dL Adrenal panel 11/21/17 11/22/17 Range/Units 05:31 03:55 Sodium 134 L 135 L (136-145) mEq/L Potassium 3.2 L 2.9 L (3.5-5.1) mEq/L Chloride 105 107 (98-107) mEq/L Carbon Dioxide 20 L 19 L (23-29) mEq/L BUN 6 L 7 L (8-23) mg/dL Creatinine 0.40 L 0.38 L (0.60-1.20) mg/dL Glucose 115 H 122 H (70-105) mg/dL Calcium 9.4 8.5 L (8.6-10.3) mg/dL - VTE Documentation of Mechanical Device: Intermittent pneumatic compression device Consult Discharge Plan - Plan Referrals: Marleny Robles, MARKETING ASSISTANT [Primary Care Provider] -
[2017-11-22] MEDS ORDERED: OXYCODONE Oral CONC 10 MG/0.5 ML ORAL.SYG SL PRN (08:48)
[2017-11-22] MEDS: Pantoprazole 40 MG VIAL IVP SCH (10:49)
[2017-11-22] MEDS ORDERED: *HR* Metoprolol 5 MG/5 ML VIAL IVP ONE ×2 (13:53→16:35)
--- NOTE | 2017-11-22 14:44 | Palliative - Consult Note ---
Date of Encounter: 11/22/17 Time of Encounter: 13:20 - Assessment and Plan (1) Goals of care, counseling/discussion Current Visit: Yes Status: Acute Assessment and plan: Patient with episode of atrial flutter. Receiving medications and K+ 2.9 and receiving kriders IV. Alert. Patient desires to discuss goals but in the mist of medical treatment. She also desires her daughter Giuliana be present. Patient agreed to have me call her to set-up meeting. Called Giuliana #[phone]. Giuliana agrees to meeting tomorrow to discuss patients goals of care. Meeting set for 10am. Patient now having BMs and NG to be DC'd and clear liquids to be given. Will follow progress and plan for meeting in AM. Patient with stage IV lung ca with mets to liver. Recent chemo on 11/16/17 was poorly tolerated. Patient is Full Code. (2) Small bowel obstruction Current Visit: Yes Status: Acute Assessment and plan: Conservative management. Patient having BMs and NG to be DC's and diet to be ordered. (3) Metastatic lung cancer (metastasis from lung to other site) Current Visit: No Status: Chronic Assessment and plan: Oncology consult reviewed. Family meeting set for 10am tomorrow. Qualifiers: Laterality: unspecified laterality Qualified Code(s): C34.90 - Malignant neoplasm of unspecified part of unspecified bronchus or lung Palliative-CN HPI - Data of Consult Patient: new to practice Consult date: 11/22/17 Requesting Physician: Nessa Isaacs MD Primary Care Provider: Marleny Robles CNP - Consult Narrative Palliative Care/Comfort Measures: Palliative care Reason for consult: Goals of Care History of present illness: Ms. Manning is a 67-year-old female with past medical history of lung cancer, follows with the cancer center. She also has a history of OK, stent placement, CHF, DM, HLP, and ventral hernia. Received a new chemotherapy 11/16/17 Taxotere. Presented to ER for nausea, vomiting. Found to have SBO and has been treated with conservative management of NG, NPO, TPN and GI stimulants. Patient now having BMs. Patient reports having gastric bypass back in the . Patient with stage IV lung cancer now with mets to liver. Patient with episode of atrial flutter treated with lopressor. Patient alert and symptomatic with palpitations. Patient request to have daughter Giuliana present for consult. Will call and set-up meeting time while patient receives treatment for atrial flutter. Assessment complete and chart review conducted. Will plan for family meeting in AM. CC: Nessa Isaacs MD Past Med Surg Social Fam HX - Past Medical History Source: patient, old records reviewed, nursing notes reviewed Medical history: arthritis, asthma, atrial fibrillation, cancer, CHF, COPD, DVT , hypertension, kidney stones, myocardial infarction, peripheral artery disease , RA, thyroid disease, other Additional medical history: Glomerulonephritis. Pulmonary Nodule. Osteoarthritis. Fibrocistic Breast Disease. Spinal Stenosis. TIA. [place] x2. CAD. Cologard positive Psychiatric history: depression - Past Surgical History Surgical History: angioplasty/stent, appendectomy, breast surgery, , cholecystectomy, herniorrhaphy, orthopedic, other, other Additional surgical history: ORIF Right Ankle. Gastric Bypass. Heart stents - Social History Smoking Status: Former smoker Smokeless Tobacco Status: No Alcohol use: none Drug use: none Occupational status: unemployed Current living situation: Home Activity Level: Uses cane/walker Recent Out of Country Travel Within the Last 8 Weeks: No Exposure or Possible Exposure to Illness During Travel: No - Family History Brother Living Status: Still Living Hx Family Cancer: Yes (Lung cancer with metastasis to the brain) Sister Living Status: Still Living Hx Family Endocrine Disorder: Yes (Thyroid disease) Daughter Adopted: No Living Status: Still Living Hx Family Neurologic Disorders: Yes (stroke x2) Father Living Status: Hx Family Cardiac Disorders: Yes (hypertension) Mother Adopted: No Family Member Ethnicity: Non- Living Status: Hx Family Cardiac Disorders: Yes (CHF) Hx Family Respiratory Disorders: No Hx Family Cancer: Yes (breast) Hx Family GI Disorders: No Hx Family Endocrine Disorder: Yes (goiter removal) Hx Family Neuromuscular Disorders: No Hx Family Neurologic Disorders: Yes (seizures from meningioma) Hx Family HEENT Disorders: Yes (cataracts) Hx Family Autoimmune Disorders: No Medications and Allergies Furosemide [Lasix] 80 mg PO DAILY 04/20/15 [History] Hydroxychloroquine [Plaquenuil] 200 mg PO BID 04/20/15 [History] Levothyroxine [Synthroid] 37.5 mcg PO 0630 04/20/15 [History] Potassium Chloride 10 meq PO DAILY 04/20/15 [History] Sertraline [Zoloft] 200 mg PO DAILY 04/20/15 [History] Tizanidine HCl [Zanaflex] 4 mg PO TID PRN 04/20/15 [History] Aspirin 81 mg PO DAILY #30 tab.chew 04/28/15 [Rx] Atorvastatin [Lipitor] 40 mg PO HS 30 Days tablet 04/28/15 [Rx] Albuterol Sulfate [Proair Hfa] 2 puff IH Q4H PRN 06/10/15 [History] Ascorbic Acid [Vitamin C] 250 mg PO DAILY 06/10/15 [History] Calcium Carbonate/Vitamin D3 [Calcium 600 + Vit D Softgel] 1 each PO BID [History] Cholecalciferol (D-3) [Vitamin D] 2,000 unit PO BID 06/10/15 [History] Cyanocobalamin (Vitamin B-12) [Vitamin B-12] 2,500 mcg SL DAILY 06/10/15 [ History] Nitroglycerin [Nitrostat] 0.4 mg SL Q5M PRN 06/10/15 [History] [place]-3 Fatty Acids [Fish Oil] 1,000 mg PO BID 06/10/15 [History] Rivaroxaban [Xarelto] 20 mg PO DAILY 06/10/15 [History] Acetaminophen [Tylenol] 325 mg PO Q6HR PRN 03/28/17 [History] Budesonide/Formoterol 160/4.5 [Symbicort 160/4.5] 2 puff IH BIDR 03/28/17 [ History] Lidocaine Patch [Lidoderm 5% patch] 2 each TP DAILY 03/28/17 [History] Simethicone [Gas Relief] 125 mg PO QID PRN 03/28/17 [History] Tiotropium [Spiriva] 1 inh IH DAILY 03/28/17 [History] Vitamin B Complex [B Complex] 1 each PO DAILY 03/28/17 [History] guaiFENesin [Guaifenesin] 600 mg PO DAILY PRN 03/28/17 [History] Lidocaine/Prilocaine CREAM [Emla] 5 gm TP ONCE #1 tube 04/06/17 [Rx] Metoprolol XL (24 HR) Succ [Toprol Xl] 100 mg PO DAILY 06/12/17 [History] Loperamide [Imodium] 2 mg PO Q4HR #120 capsule 09/07/17 [Rx] Ondansetron [Zofran] 8 mg PO Q8HR PRN #90 tablet 09/07/17 [Rx] Magic Mouthwash [Magic Mouthwash BLM] 10 ml PO QID PRN #240 ml 10/19/17 [Rx] Dexamethasone [Decadron] 4 mg PO BID #36 tab 11/16/17 [Rx] Prochlorperazine Maleate [Compazine] 10 mg PO Q8HR PRN #90 tablet 11/16/17 [Rx] Tramadol HCl [Ultram] 50 mg PO TID PRN 30 Days #90 tab 11/16/17 [Rx] Zolpidem [Ambien] 5 mg PO HS PRN 30 Days #30 tablet 11/16/17 [Rx] 3 Allergy/AdvReac Type Severity Reaction Status Date / Time duloxetine [From Cymbalta] Allergy Itching Verified 11/16/17 12:46 Metaxalone [From Skelaxin] Allergy Itching Verified 11/16/17 12:46 valdecoxib [From Bextra] Allergy Itching Verified 11/16/17 12:46 bupropion [From Wellbutrin] AdvReac See Verified 11/16/17 12:46 Comments meperidine [From Demerol] AdvReac Nausea Verified 11/16/17 12:46 pentazocine [From Talwin] AdvReac See Verified 11/16/17 12:46 Comments eggs AdvReac Abdominal Uncoded 11/16/17 12:46 Pain All systems: reviewed and no additional remarkable complaints except as stated Review of systems: abdominal cramping, diffuse abdominal pain. - Constitutional Constitutional ROS PAL: decreased appetite, fatigue - Cardiovascular Cardiovascular ROS: palpitations - Gastrointestinal Gastrointestinal: abdominal pain, bloating, change in bowel habits - Musculoskeletal Musculoskeletal ROS IM: muscle weakness - Neurological Neurological ROS: weakness - Psychiatric Psychiatric general PM: depression Palliative Care-Exam - Constitutional Vitals: Temp Pulse Resp BP Pulse Ox 98.9 F 167 16 158/76 97 11/22/17 13:29 11/22/17 13:29 11/22/17 13:29 11/22/17 13:29 11/22/17 13:29 General appearance: Present: cooperative - Head Head Exam: Present: atraumatic, normal inspection - Eye Eye exam: Present: PERRL Pupils: Present: PERRL - ENT ENT exam: Present: mucous membranes moist - Expanded ENT Exam Teeth exam: Present: edentulous - Neck Neck exam: Present: full ROM - Respiratory Respiratory exam: Present: decreased breath sounds - Expanded Respiratory Exam Location: decreased breath sounds: Left, Right, Lower - Cardiovascular Cardiovascular exam: Present: irregular rhythm, +S1, +S2, tachycardia - Expanded Cardiovascular Exam Peripheral pulses: 1+: Femoral (L) PM, Femoral (R) PM, Posterior Tibialis (L), Posterior Tibialis (R), 2+: Carotid (L) PM, Carotid (R) PM, Radial (L), Radial ( R), Dorsalis Pedis (L) PM, Dorsalis Pedis (R) PM - GI/Abdominal Exam GI/Abdominal exam: Present: diminished bowel sounds, firm, tenderness additional comments: + BMs now. NG tube in place. Draining brownish liquid drainage - Catheter Type: Urethral (Carlson) - Extremities Exam Extremities exam: Present: full ROM - Neurological Exam Neurological exam: Present: alert, oriented X3 - Expanded Neurological Exam Patient oriented to: Present: person, place, time - Psychiatric Psychiatric exam: Present: normal affect, normal mood - Skin Skin exam: Present: pallor Internal Medicine - CN: Reslt - Labs CBC & Chem 7: 11/22/17 03:55 11/22/17 03:55 Labs: Short CBC 11/22/17 Range/Units 03:55 WBC 17.7 H (4.3-11.1) K/mcL Hgb 8.4 L (11.5-15.4) g/dL Hct 26.8 L (35.3-44.9) % Plt Count 167 (140-400) K/mcL BMP 11/22/17 03:55 Sodium 135 L Potassium 2.9 L Chloride 107 Carbon Dioxide 19 L BUN 7 L Creatinine 0.38 L Glucose 122 H Calcium 8.5 L - Impressions Impressions Abdomen X-Ray 11/22/17 09:38 IMPRESSION: 1. Antegrade transit of oral contrast, which is now primarily within the left colon and rectum. 2. Persistent, although somewhat decreased, dilated small bowel loop in the right abdomen. This likely is due to a partial small bowel obstruction as previously suspected. D/ / Jv Yanes MD / Jv Yanes MD Interpreting Provider: Jv Yanes MD Consult Discharge Plan - Plan Referrals: Marleny Robles REINSURANCE CLAIM ANALYST [Primary Care Provider] - Palliative Quality Palliative Quality: Screen for Code Status: Yes, Screen for Goals of Care: Yes, Screen for Pain: Yes, Screen for Nausea/Vomitting: Yes Code Status: Full Code
--- NOTE | 2017-11-22 15:19 | Internal Med Progress Note ---
Hospitalist Progress Note - Encounter Date of Encounter: 11/22/17 Time of Encounter: 15:13 - Subjective Interval History: Patient was seen and examined at bedside. She reports that she slept well. Was evaluated by surgery this morning, she did have a bowel movement which she recalls at small amounts. Surgery was notified and was at bedside. Currently she is reports that her abdominal pain is better, has no new complaints, she is voiding without difficulty, afebrile, denies palpitations chest pain shortness of breath. Denies hunger, is helpful for more bowel movements. He has passed flatness in addition to her small bowel movement. Denies nausea or vomiting. - Exam Vitals: Temp Pulse Resp BP Pulse Ox 98.9 F 167 16 158/76 97 11/22/17 13:29 11/22/17 13:29 11/22/17 13:29 11/22/17 13:29 11/22/17 13:29 Exam: General: Patient is alert, oriented, no acute distress, Head: atraumatic, normocephalic, Eye: normal appearance, PERRL, no scleral icterus, no conjunctival injection ENT: mucous membranes moist, normal external ear exam Neck: normal inspection, trachea midline, full ROM, no carotid bruits Chest: normal inspection, symmetric chest rise Respiratory: Good respiratory effort. Bilateral breath sounds are clear without wheezing, crackles, or rhonchi. Cardiovascular: irregularly irregular s1 and s2 No clicks, rubs, gallops, or murmors. Abdomen: BS+ve, LLQ pain, soft but mildly tender to palpation. reducible hernia , midline abdominal scar that is well healed musculoskeletal: Spontaneously moving all extremities. no edema of calf tenderness. Skin: warm, dry, intact. Neuro: Alert and oriented x4. Sensation light touch intact. Cranial nerves 2- 12 is intact. Psych: Patient's affect is normal - Assessment and Plan (1) Small bowel obstruction Current Visit: Yes Status: Acute Assessment and Plan: Patient had 2 bowel movements since this morning. AAS notes contrast in the left colon and rectum, decrease in the small bowel dilation previously seen. OK to d/c NG, trial CLD, continue bowel regimen Surgery cleared patient to start OAC for PAF Will continue to monitor H&H, it has trended down but also lines have trended down We will send guaiac Was started on TPN as per surgery - will follow-up with nutrition to discontinue Stimulant prescribed by surgery IV fluids - reduced the dose as she is being started on TPN will continue zosyn for now Will discontinue Carlson catheter will continue with GI prophylaxis miralax daily until daily bowel movements that are mashed potatoes consistency We will keep her nothing by mouth today except medications until more bowel movements are noted. / (2) Paroxysmal atrial fibrillation Current Visit: No Status: Chronic Assessment and Plan: Had an episode of sinus tachycardia, relieved by 5 mg of metoprolol IV push. Denies chest pain Metoprolol 50 twice a day was started orally as she is cleared by surgery to have oral medications Xarelto and aspirin was started she was cleared by surgery to start OAC We will continue telemetry monitoring (3) Hypokalemia Current Visit: Yes Status: Acute Assessment and Plan: replaced will continue to follow electrolytes daily and replace as needed (4) Hypothyroidism Current Visit: No Status: Chronic Assessment and Plan: Started on home Synthroid dose orally from tomorrow (5) Hyperlipemia Current Visit: No Status: Chronic Assessment and Plan: Continue home medications. (6) Elevated troponin Current Visit: Yes Status: Acute Assessment and Plan: secondary to Afib with RVR and supply vs. mismatch has been chest pain free since admission has stress test on 12/23/2015- perfusion imaging was negative for ischemia or infarct (7) Diastolic CHF, chronic Current Visit: No Status: Chronic Assessment and Plan: was dehydrated NPO will continue IVF will consider IV lasix if she developes volume overload Had TTE in may 2017- EF 60-65% (8) Lung cancer Current Visit: No Status: Chronic Assessment and Plan: small cell lung cancer stage IV Treatment history includes carboplatin/etoposide 04/18/17-08/01/17 x6 cycles, Irinotecan 09/07/17 x4 until 11/07/17 with progressive liver lesions treatment most recently changed to Taxotere Q3W cycle #1 11/16/2017. Patient follow-up with cancer center. S/p Chemo 11/16/17 oncology on board will follow recommendations Palliative was consulted for goals of care (9) Metastatic lung cancer (metastasis from lung to other site) Current Visit: No Status: Chronic Assessment and Plan: Management as above (10) COPD (chronic obstructive pulmonary disease) Current Visit: No Status: Chronic Assessment and Plan: Continue home medications. (11) Leukocytosis Current Visit: Yes Status: Acute Assessment and Plan: CT did not reveal bowel perforation, blood culture pending, continue empirical antibiotics with IV Zosyn. WBC count is trending down (12) Diabetes mellitus Current Visit: Yes Status: Acute Assessment and Plan: insulin SS. (13) Acute on chronic anemia Current Visit: Yes Status: Acute Assessment and Plan: Guaiac ordered Will continue to monitor H&H Could be dilutional since all cell lines are decreasing No signs of bleeding Type and screen Baseline from chart review as around 9-10 (14) DVT prophylaxis Current Visit: Yes Status: Acute Assessment and Plan: SCDs Was restarted on her Xarelto as surgery cleared for her to have OAC DVT Prophylaxis: SCDs Was restarted on her Xarelto as surgery cleared for her to have OAC - Time Spent with Patient Total time spent is greater than 50% in coordination of care (as documented) at patient's floor/unit and/or counseling patient: Plan of Care Discussed with: patient Internal Medicine: Result - Labs CBC & Chem 7: 11/22/17 03:55 11/22/17 03:55 Labs: Short CBC 11/22/17 Range/Units 03:55 WBC 17.7 H (4.3-11.1) K/mcL Hgb 8.4 L (11.5-15.4) g/dL Hct 26.8 L (35.3-44.9) % Plt Count 167 (140-400) K/mcL BMP 11/22/17 03:55 Sodium 135 L Potassium 2.9 L Chloride 107 Carbon Dioxide 19 L BUN 7 L Creatinine 0.38 L Glucose 122 H Calcium 8.5 L - Impressions Impressions Abdomen X-Ray 11/22/17 09:38 IMPRESSION: 1. Antegrade transit of oral contrast, which is now primarily within the left colon and rectum. 2. Persistent, although somewhat decreased, dilated small bowel loop in the right abdomen. This likely is due to a partial small bowel obstruction as previously suspected. D/ / Jv Yanes MD / Jv Yanes MD Interpreting Provider: Jv Yanes MD - VTE Documentation of Mechanical Device: Intermittent pneumatic compression device Consult Discharge Plan - Plan Referrals: Marleny Robles, PHARMACY BUYER [Primary Care Provider] - (4) Hypothyroidism Qualifiers: Hypothyroidism type: unspecified Qualified Code(s): E03.9 - Hypothyroidism, unspecified (5) Hyperlipemia Qualifiers: Hyperlipidemia type: unspecified Qualified Code(s): E78.5 - Hyperlipidemia, unspecified (8) Lung cancer Qualifiers: Laterality: left Lung location: lower lobe of lung Qualified Code(s): C34.32 - Malignant neoplasm of lower lobe, left bronchus or lung (9) Metastatic lung cancer (metastasis from lung to other site) Qualifiers: Laterality: unspecified laterality Qualified Code(s): C34.90 - Malignant neoplasm of unspecified part of unspecified bronchus or lung (10) COPD (chronic obstructive pulmonary disease) Qualifiers: COPD type: unspecified COPD Qualified Code(s): J44.9 - Chronic obstructive pulmonary disease, unspecified (11) Leukocytosis Qualifiers: Leukocytosis type: unspecified Qualified Code(s): D72.829 - Elevated white blood cell count, unspecified (12) Diabetes mellitus Qualifiers: Diabetes mellitus type: type 2 Diabetes mellitus mcfp insulin use: unspecified meterman insulin use status Diabetes mellitus complication status : with unspecified complications Qualified Code(s): E11.8 - Type 2 diabetes mellitus with unspecified complications
[2017-11-22] MEDS: *HR* Rivaroxaban 10 MG TABLET PO SCH (16:58)
[2017-11-22] MEDS ORDERED: Clinimix E 5%-15% SOLUTION 2,000 ML with MVI, adult with vitamin K 10 ML IVC SCH (17:00)
--- NOTE | 2017-11-23 02:14 | Electrocardiograph Report ---
[place] [id number] Test Date: 2017-11-22 Pat Name: Maria Isabel Manning Department: 115 Room: 3A36 Gender: F Frontload Driver: : [id number] Requested By: [id number] Order Number: [id number] Reading MD: Genesis Prieto Measurements Intervals [place] Rate: 128 P: 51 NM: 129 QRS: 15 QRSD: 92 T: -3 QT: 319 QTc: 395 Interpretive Statements SINUS TACHYCARDIA MINIMAL ST DEPRESSION ABNORMAL RHYTHM ECG Electronically Signed On 11-22-2017 16:07:35 EDT by Genesis Prieto
[2017-11-23] MEDS: Levothyroxine 25 MCG TABLET PO SCH (06:28)
[2017-11-23 06:51] LABS: Hematocrit 28.9 % (35.3-44.9); Hemoglobin 9.1 g/dL (11.5-15.4); Mean Corpuscular HGB Conc 31.5 g/dL (31.6-35.5); Mean Corpuscular Hemoglobin 25.1 pg (28.0-33.3); Mean Corpuscular Volume 79.6 fL (83.0-100.0); Mean Platelet Volume 10.4 fL (9.4-12.4); Platelet Count 169 K/mcL (140-400); Red Blood Count 3.63 M/mcL (3.82-4.97); Red Cell Distribution Width 22.1 % (11.5-14.5)
[2017-11-23 07:31] LABS: BUN/Creatinine Ratio 22 (6-26); Blood Urea Nitrogen 10 mg/dL (8-23); Carbon Dioxide 22 mEq/L (23-29); Chloride 107 mEq/L (98-107); Glucose 116 mg/dL (70-105); Magnesium 2.1 mg/dL (1.6-2.6); Osmolality,Calculated 280 (280-300); Phosphorous 3.4 mg/dL (2.7-4.5); Potassium 3.7 mEq/L (3.5-5.1); Sodium 135 mEq/L (136-145); eGFR For Non-African Americans > 60 (> 60)
[2017-11-23] MEDS: Budesonide/Formoterol 160/4.5 1 PUFF INH IH SCH ×2 (07:31→20:22)
[2017-11-23] MEDS: Tiotropium 18 MCG inhalation IH SCH (07:32)
[2017-11-23] MEDS: Insulin LISPRO 300 UNITS/3 ML VIAL SQ SCH (08:16)
[2017-11-23] MEDS: Cyanocobalamin (B-12) 1,000 MCG TABLET PO SCH (08:35)
[2017-11-23] MEDS: MOM Conc 10 ML UD.LIQ PO SCH (08:35)
[2017-11-23] MEDS: Cholecalciferol (D-3) 1,000 UNIT TABLET PO SCH (08:35)
[2017-11-23] MEDS: Pantoprazole 40 MG VIAL IVP SCH (08:35)
[2017-11-23] MEDS: Aspirin 81 MG TAB.CHEW PO SCH (08:35)
[2017-11-23] MEDS: Piperacillin/Tazobactam 3.375 GM in 0.9 % Sodium Chloride Mini Bag 100 ML IVPB SCH ×2 (08:36→18:26)
--- NOTE | 2017-11-23 09:57 | General Surgery Progress Note ---
<Danette Huerta E - Last Filed: 11/23/17 09:54> Date of Encounter: 11/23/17 Time of Encounter: 09:54 - Assessment and Plan (1) Small bowel obstruction Status: Acute small bowel follow through FINDINGS: Concessionist image shows significantly dilated small bowel. There is significantly delayed transit time to the colon. Contrast opacification of the ascending colon is visualized at approximately 12 hours following contrast administration. Contrast filling of nondilated small bowel is visualized at 8.5 hours. XR/XR small bowel FT w/ barium IMPRESSION: Marked small bowel dilation and delayed small bowel transit time. Patient had two bowel moments this morning Tolerating CLD well Reglan stopped Recommend 30ml Milk of Magnesia every other day Surgery will sign off at this time, thank you for involving us in this patient' s care, please feel free to contact us with any questions. (2) Metastatic lung cancer (metastasis from lung to other site) Status: Chronic Qualifiers: Laterality: unspecified laterality Qualified Code(s): C34.90 - Malignant neoplasm of unspecified part of unspecified bronchus or lung (3) Paroxysmal atrial fibrillation Status: Chronic Subjective Patient reports: feels better, pain is less, tolerating liquids well, bowel movement Objective Vital Signs - Last 8 Hours Temp Pulse Resp BP Pulse Ox 11/23/17 07:31 18 98 11/23/17 06:45 98.1 F 77 16 99/61 100 11/23/17 04:46 98.8 F 105 15 115/64 95 Intake and Output 11/22/17 11/23/17 11/23/17 23:59 07:59 15:59 Intake Total 1681.4 / 1681.4 400 / 400 1460 / 1460 Output Total 350 / 350 450 / 450 150 / 150 Balance 1331.4 / 1331.4 -50 / -50 1310 / 1310 Intake: IV Fluids 1681.4 / 1681.4 1100 / 1100 0.9 % Sodium Chloride 1,000 ML 1000 / 1000 @ 50 mls/hr IVC .Q20H [facility] Rx#: [id number] Clinimix E 5%-15% SOLUTION 2, 1252.5 / 1252.5 000 ML @ 70 mls/hr IVC .Q24H [facility] with M.v.i. Adult 10 ml Rx# :[id number] Intralipid 20% 250 ML @ 21 mls/ 26.9 / 26.9 hr IVPB DAILY@1700 [facility] Rx#: [id number] Magnesium Sulfate 1 GM In 0.9 % 102 / 102 Sodium Chloride 100 ML @ 100 mls/hr IVPB ONCE ONE Rx#: [id number] Zosyn 3.375 GM In 0.9 % Sodium 100 / 100 100 / 100 Chloride (Mini-Bag +) 100 ML @ 25 mls/hr IVPB Q8HR [facility] Rx#: [id number] Potassium Chloride 10 mEq/100mL 100 / 100 10 meq In 100 ml @ 100 mls/hr IVPB Q1H [facility] Rx#:[id number] Oral 0 / 0 400 / 400 360 / 360 Output: Urine 350 / 350 150 / 150 Catheter 450 / 450 Other: Meal npo Clears Stool Size Small Moderate Stool Consistency soft liquid formed Stool Color Brown Brown # Bowel Movements 0 1 Weight 93.4 kg Blood Glucose* 140 - General physical appearance well developed, well nourished, chronically ill - Respiratory normal expansion, normal respiratory effort, clear to auscultation - Cardiovascular Cardiovascular exam: Present: RRR, no murmurs/rubs/gallops - Abdomen Abdomen: Present: bowel sounds present, soft, non tender - Integumentary no rash, no growths, no abnormal pigmentation - Musculoskeletal normal posture - Psychiatric oriented to time, oriented to person, oriented to place - Labs 11/23/17 04:00 11/23/17 06:20 Diabetes panel 11/23/17 Range/Units 06:20 Sodium 135 L (136-145) mEq/L Potassium 3.7 (3.5-5.1) mEq/L Chloride 107 (98-107) mEq/L Carbon Dioxide 22 L (23-29) mEq/L BUN 10 (8-23) mg/dL Creatinine 0.45 L (0.60-1.20) mg/dL Glucose 116 H (70-105) mg/dL Calcium 9.0 (8.6-10.3) mg/dL Calcium panel 11/23/17 Range/Units 06:20 Calcium 9.0 (8.6-10.3) mg/dL Phosphorus 3.4 (2.7-4.5) mg/dL Pituitary panel 11/23/17 Range/Units 06:20 Sodium 135 L (136-145) mEq/L Potassium 3.7 (3.5-5.1) mEq/L Chloride 107 (98-107) mEq/L Carbon Dioxide 22 L (23-29) mEq/L BUN 10 (8-23) mg/dL Creatinine 0.45 L (0.60-1.20) mg/dL Glucose 116 H (70-105) mg/dL Calcium 9.0 (8.6-10.3) mg/dL Adrenal panel 11/23/17 Range/Units 06:20 Sodium 135 L (136-145) mEq/L Potassium 3.7 (3.5-5.1) mEq/L Chloride 107 (98-107) mEq/L Carbon Dioxide 22 L (23-29) mEq/L BUN 10 (8-23) mg/dL Creatinine 0.45 L (0.60-1.20) mg/dL Glucose 116 H (70-105) mg/dL Calcium 9.0 (8.6-10.3) mg/dL - VTE Documentation of Mechanical Device: Intermittent pneumatic compression device Consult Discharge Plan - Plan Referrals: Dakota Tsai MD [Partnered Physician] - 12/07/17 8:30 am Marleny Robles CNP [Primary Care Provider] - 12/04/17 10:00 am Nirmala Alex MD [Partnered Physician] - (Web request sent on 11/26.) Prescriptions: MOM Conc [MILK OF MAGNESIA conc] 30 ml PO Q48H 15 Days #15 [id number] Omeprazole [PriLOSEC] 20 mg PO DAILY@0630 #30 capsule.Desmond Lozano - Last Filed: 12/03/17 08:36> Date of Encounter: 11/23/17 Objective - Labs 11/26/17 04:09 11/26/17 04:09 - Attending Attestation I examined this patient and my medical decision-making was reviewed with the Resident Physician. I agree with the documented findings, disposition and treatment plan as described except to the extent set forth below. The patient is seen and evaluated on morning rounds. Her high-grade partial small bowel obstruction. The is tolerating clear liquid diet. Continue slow progress on her diet advanced. Hopefully, we will be to avoid exploratory laparotomy and treat her conservatively. Desmond Palmer MD FACS
--- NOTE | 2017-11-23 10:41 | Palliative Progress Note ---
Date of Encounter: 11/23/17 Time of Encounter: 10:00 - Assessment and plan (1) Goals of care, counseling/discussion Current Visit: Yes Status: Acute Assessment and plan: Conducted bedside meeting with daughter Giuliana and patient. Technical Rep Camron Ontiveros attended. Discussed goals of care for lung cancer. Patient started new chemo regimen on 11/16/17. Patient desires to continue aggressive treatment of lung cancer. Next Oncology appt is set for 12/07/17. Discussed drafting liviing will and DPOA. Discussed chronic health issues and need to formally communicate end-of-life wishes. Provided forms on living will and DPOA to daughter and they will plan to discuss and complete at next Oncology visit. Patient desires to remain Full Code and seek aggressive treatments for cancer. Offered bedside prayer but patient declined. Patient to DC home and live with daughter. (2) Small bowel obstruction Current Visit: Yes Status: Acute Assessment and plan: Resolved. Tolerating po liquids and having BMs. Katheryn has signed off case. (3) Metastatic lung cancer (metastasis from lung to other site) Current Visit: Yes Status: Chronic Assessment and plan: Oncology following and patient to f/u on 12/07/17. Qualifiers: Laterality: unspecified laterality Qualified Code(s): C34.90 - Malignant neoplasm of unspecified part of unspecified bronchus or lung - Time Spent With Patient Total time spent is greater than 50% in coordination of care (as documented) at patient's floor/unit and/or counseling patient: 25 - 35 minutes - Subjective Interval history: Patient sitting up in bed. Reports feeling better. HR regular and rate 90s. Patient tolerated CLD. Conducted bedside meeting with patient and daughter Giuliana. - Constitutional Vitals: Abnormal lab results WBC 18.8 K/mcL (4.3-11.1) H 11/23/17 04:00 RBC 3.63 M/mcL (3.82-4.97) L 11/23/17 04:00 Hgb 9.1 g/dL (11.5-15.4) L 11/23/17 04:00 Hct 28.9 % (35.3-44.9) L 11/23/17 04:00 MCV 79.6 fL (83.0-100.0) L 11/23/17 04:00 MCH 25.1 pg (28.0-33.3) L 11/23/17 04:00 MCHC 31.5 g/dL (31.6-35.5) L 11/23/17 04:00 RDW 22.1 % (11.5-14.5) H 11/23/17 04:00 Metamyelocytes % 4.0 % (0) H 11/21/17 05:31 Myelocytes % 6.0 % (0) H 11/20/17 05:26 Neutrophils # 15.0 K/mcL (1.6-8.9) H 11/21/17 05:31 Nucleated RBCs/100 WBC 0.1 /100 WBC (0) H 11/21/17 05:31 Toxic Granulation Present (Not Present) A 11/20/17 05:26 Large Platelets Present (Not Present) A 11/20/17 05:26 Anisocytosis 3+ (Not Present) A 11/20/17 05:26 Microcytosis Present (Not Present) A 11/20/17 05:26 Macrocytosis Present (Not Present) A 11/20/17 05:26 Sodium 135 mEq/L (136-145) L 11/23/17 06:20 Carbon Dioxide 22 mEq/L (23-29) L 11/23/17 06:20 Creatinine 0.45 mg/dL (0.60-1.20) L 11/23/17 06:20 Glucose 116 mg/dL (70-105) H 11/23/17 06:20 POC Glucose 139 mg/dL (70-99) H 11/22/17 04:06 AST 53 Units/L (13-39) H 11/19/17 14:36 Alkaline Phosphatase 265 Units/L (34-104) H 11/19/17 14:36 Troponin I 0.07 ng/mL (< 0.04) H* 11/19/17 18:18 Urine Protein 100 mg/dL (Neg-Trace) H 11/19/17 15:45 Ur Squamous Epith Cells Many per lpf (None-Few) H 11/19/17 15:45 Stool Occult Blood Positive (Negative) A 11/22/17 17:05 - Head Head exam: Present: atraumatic, normal inspection - Eye Eye exam: Present: PERRL Pupils: Present: PERRL - ENT ENT exam: Present: mucous membranes moist - Neck Neck exam: Present: full ROM - Respiratory Respiratory exam: Present: CTAB - Cardiovascular Cardiovascular exam: Present: RRR, +S1, +S2 - Expanded Cardiovascular Exam Peripheral pulses: 1+: Femoral (L) PM, Femoral (R) PM, Posterior Tibialis (L), Posterior Tibialis (R), 2+: Carotid (L) PM, Carotid (R) PM, Radial (L), Radial ( R), Dorsalis Pedis (L) PM, Dorsalis Pedis (R) PM - GI/Abdominal GI/Abdominal exam: Present: normal bowel sounds, soft - Extremities Exam Extremities exam: Present: full ROM - Back Exam Back exam: Present: full ROM - Neurological Exam Neurological exam: Present: alert, oriented X3 - Psychiatric Psychiatric exam: Present: normal affect, normal mood - Skin Skin exam: Present: pallor, warm Palliative Quality Palliative Quality: Screen for Code Status: Yes, Screen for Goals of Care: Yes, Screen for Pain: Yes, Screen for Nausea/Vomitting: Yes - Labs CBC & Chem 7: 11/23/17 04:00 11/23/17 06:20 Labs: Laboratory Results - last 24 hr 11/21/17 11/22/17 11/22/17 23:51 04:06 17:05 WBC RBC Hgb Hct MCV MCH MCHC RDW Plt Count MPV Sodium Potassium Chloride Carbon Dioxide BUN Creatinine Est GFR ( Amer) Est GFR (Non-Af Amer) BUN/Creatinine Ratio Glucose POC Glucose 136 H 139 H Calculated Osmolality Calcium Phosphorus Magnesium Stool Occult Blood Positive A 11/23/17 11/23/17 04:00 06:20 WBC 18.8 H RBC 3.63 L Hgb 9.1 L Hct 28.9 L MCV 79.6 L MCH 25.1 L MCHC 31.5 L RDW 22.1 H Plt Count 169 MPV 10.4 Sodium 135 L Potassium 3.7 Chloride 107 Carbon Dioxide 22 L BUN 10 Creatinine 0.45 L Est GFR ( Amer) > 60 Est GFR (Non-Af Amer) > 60 BUN/Creatinine Ratio 22 Glucose 116 H POC Glucose Calculated Osmolality 280 Calcium 9.0 Phosphorus 3.4 Magnesium 2.1 Stool Occult Blood - Impressions Impressions Abdomen X-Ray 11/22/17 09:38 IMPRESSION: 1. Antegrade transit of oral contrast, which is now primarily within the left colon and rectum. 2. Persistent, although somewhat decreased, dilated small bowel loop in the right abdomen. This likely is due to a partial small bowel obstruction as previously suspected. D/ / Jv Yanes MD / Jv Yanes MD Interpreting Provider: Jv Yanes MD Consult Discharge Plan - Plan Referrals: Marleny Robles, PROOF LOAD MECHANIC [Primary Care Provider] -
[2017-11-23] MEDS ORDERED: Insulin LISPRO 300 UNITS/3 ML VIAL SQ SCH ×2 (11:30→21:00)
--- NOTE | 2017-11-23 13:13 | Oncology Inp Progress Note ---
Date of Encounter: 11/23/17 Time of Encounter: 13:00 (1) Lung cancer Current Visit: No Status: Chronic Assessment and plan: Small cell lung cancer, Stage IV Treatment history includes carboplatin/etoposide 04/18/17-08/01/17 x6 cycles, Irinotecan 09/07/17 x4 until 11/07/17 with progressive liver lesions treatment most recently changed to Taxotere Q3W cycle #1 11/16/2017. Scheduled for cycle # 2 12/07/2017 Plan: Following further discussion with patient, patients daughter and palliative care team, patient wishes to continue to pursue treatment with Taxotere She is scheduled to see Dr. White on 12/07/2017, with treatment tentatively to follow at the discretion of Dr. White and dependent upon her continued recovery from partial obstruction At this time, oncology will otherwise sign off, please let us know if any further questions or concerns arise Qualifiers: Laterality: left Lung location: lower lobe of lung Qualified Code(s): C34.32 - Malignant neoplasm of lower lobe, left bronchus or lung (2) Small bowel obstruction Current Visit: Yes Status: Acute Assessment and plan: Managed per surgical team and hospitalist Now having small bowel movements x4 today and passing flatus Tolerating clear liquid diet well Oncology: Subj Interval history: Ms. Manning is sitting on the side of the bed, states she feels "great". She denies pain, nausea or vomiting. She has had 4 small, loose bowel movements today. She is passing flatus. She is tolerating her clear liquid diet well, states she feels slight discomfort with eating too much, too quickly but also states this does not come to surprise to her with her history of gastric bypass. Patients daughter at bedside - Constitutional Vitals: Vital Signs Temp Pulse Resp BP Pulse Ox 11/23/17 10:42 101/70 11/23/17 10:27 97.6 F 96 15 117/77 94 11/23/17 07:31 18 98 11/23/17 06:45 98.1 F 77 16 99/61 100 11/23/17 04:46 98.8 F 105 15 115/64 95 11/22/17 20:30 16 99 11/22/17 18:41 99.9 F H 100 114/75 97 11/22/17 15:25 98.5 F 111 14 194/100 97 11/22/17 13:29 98.9 F 167 16 158/76 97 Intake and Output 11/22/17 11/23/17 11/23/17 23:59 07:59 15:59 Intake Total 1681.4 / 1681.4 400 / 400 1460 / 1460 Output Total 350 / 350 450 / 450 225 / 225 Balance 1331.4 / 1331.4 -50 / -50 1235 / 1235 Intake: IV Fluids 1681.4 / 1681.4 1100 / 1100 0.9 % Sodium Chloride 1,000 ML 1000 / 1000 @ 50 mls/hr IVC .Q20H [facility] Rx#: [id number] Clinimix E 5%-15% SOLUTION 2, 1252.5 / 1252.5 000 ML @ 70 mls/hr IVC .Q24H [facility] with M.v.i. Adult 10 ml Rx# :[id number] Intralipid 20% 250 ML @ 21 mls/ 26.9 / 26.9 hr IVPB DAILY@1700 [facility] Rx#: [id number] Magnesium Sulfate 1 GM In 0.9 % 102 / 102 Sodium Chloride 100 ML @ 100 mls/hr IVPB ONCE ONE Rx#: [id number] Zosyn 3.375 GM In 0.9 % Sodium 100 / 100 100 / 100 Chloride (Mini-Bag +) 100 ML @ 25 mls/hr IVPB Q8HR [facility] Rx#: [id number] Potassium Chloride 10 mEq/100mL 100 / 100 10 meq In 100 ml @ 100 mls/hr IVPB Q1H [facility] Rx#:[id number] Oral 0 / 0 400 / 400 360 / 360 Output: Urine 350 / 350 225 / 225 Catheter 450 / 450 Other: Meal npo Clears Stool Size Small Moderate Stool Consistency soft liquid Stool Color Brown Brown # Bowel Movements 0 1 Weight 93.4 kg Blood Glucose* 140 General appearance: cooperative, no acute distress, no febrile - Head Head exam: Present: atraumatic - ENT ENT exam: Present: mucous membranes moist - Respiratory Respiratory exam: Present: CTAB. Absent: respiratory distress - Cardiovascular Cardiovascular exam: Present: irregular rhythm - GI/Abdominal GI/Abdominal exam: Present: normal bowel sounds, soft. Absent: tenderness Additional comments: abdominal hernia - Extremities Exam Extremities exam: Present: normal inspection, pedal edema - Neurological Exam Neurological exam: Present: alert, oriented X3, no focal deficits, strengths equal and symetr throughout - Psychiatric Psychiatric exam: Present: normal affect, normal mood - Skin Skin exam: Present: dry, intact, normal color, warm Oncology: Obj Data - Labs CBC & Chem 7: 11/23/17 04:00 11/23/17 06:20 Consult Discharge Plan - Plan Referrals: Marleny Robles, INTERNAL AUDITOR [Primary Care Provider] -
--- NOTE | 2017-11-23 17:06 | Internal Med Progress Note ---
Hospitalist Progress Note - Encounter Date of Encounter: 11/23/17 Time of Encounter: 10:00 - Subjective Interval History: Patient was seen and examined at bedside. She reports that she slept well. Was evaluated by surgery this morning, she did have an addition 2 BM she was started on clear liquid diet which she tolerated. denies N/V. is having bowel movements. abdominal bloating and pain has resolved describes stools as brown/ kelly denies hematochezia, melena, hematemesis. palpitations have resolved denies fever, chills, palpitations, CP, SOB. Patient desires to remain Full Code and seek aggressive treatments for cancer - Exam Vitals: Temp Pulse Resp BP Pulse Ox 98.8 F 104 15 153/86 97 11/23/17 14:27 11/23/17 14:27 11/23/17 14:27 11/23/17 14:27 11/23/17 14:27 Exam: General: Patient is alert, oriented, no acute distress, Head: atraumatic, normocephalic, Eye: normal appearance, PERRL, no scleral icterus, no conjunctival injection ENT: mucous membranes moist, normal external ear exam Neck: normal inspection, trachea midline, full ROM, no carotid bruits Chest: normal inspection, symmetric chest rise Respiratory: Good respiratory effort. Bilateral breath sounds are clear without wheezing, crackles, or rhonchi. Cardiovascular: irregular s1 and s2 No clicks, rubs, gallops, or murmors. Abdomen: BS+ve, soft non-tender reducible hernia, midline abdominal scar that is well healed musculoskeletal: Spontaneously moving all extremities. no edema of calf tenderness. Skin: warm, dry, intact. Neuro: Alert and oriented x4. Sensation light touch intact. Cranial nerves 2- 12 is intact. Psych: Patient's affect is normal - Assessment and Plan (1) Small bowel obstruction Current Visit: Yes Status: Acute Assessment and Plan: patient is having BMs Will continue to monitor H&H, has trended up to 9.1 guaiac positive but brown/kelly stools - suspecting that it was due to obstruction tolerating PO diet surgery recommendations appreciated will continue zosyn for now- still has leukocytosis Will discontinue Carlson catheter continue with GI prophylaxis miralax daily / (2) Paroxysmal atrial fibrillation Current Visit: No Status: Chronic Assessment and Plan: Metoprolol 50 twice a day was started orally as she is cleared by surgery to have oral medications- HR is more controlled Xarelto and aspirin was started she was cleared by surgery to start OAC We will continue telemetry monitoring (3) Hypokalemia Current Visit: Yes Status: Resolved Assessment and Plan: resolved will continue to follow electrolytes daily and replace as needed (4) Hypothyroidism Current Visit: No Status: Chronic Assessment and Plan: on home dose synthroid (5) Hyperlipemia Current Visit: No Status: Chronic Assessment and Plan: Continue home medications. (6) Elevated troponin Current Visit: Yes Status: Acute Assessment and Plan: secondary to Afib with RVR and supply vs. mismatch has been chest pain free since admission has stress test on 12/23/2015- perfusion imaging was negative for ischemia or infarct (7) Diastolic CHF, chronic Current Visit: No Status: Chronic Assessment and Plan: will start her lasix 40 mg Qday and gradually increase to her home dose Had TTE in may 2017- EF 60-65% (8) Lung cancer Current Visit: No Status: Chronic Assessment and Plan: small cell lung cancer stage IV Treatment history includes carboplatin/etoposide 04/18/17-08/01/17 x6 cycles, Irinotecan 09/07/17 x4 until 11/07/17 with progressive liver lesions treatment most recently changed to Taxotere Q3W cycle #1 11/16/2017. Patient follow-up with cancer center. S/p Chemo 11/16/17 oncology on board will follow recommendations Palliative was consulted for goals of care (9) Metastatic lung cancer (metastasis from lung to other site) Current Visit: Yes Status: Chronic Assessment and Plan: Management as above (10) COPD (chronic obstructive pulmonary disease) Current Visit: No Status: Chronic Assessment and Plan: Continue home medications. (11) Leukocytosis Current Visit: Yes Status: Acute Assessment and Plan: CT did not reveal bowel perforation, blood culture pending, continue empirical antibiotics with IV Zosyn. WBC count is trending down (12) Diabetes mellitus Current Visit: Yes Status: Acute Assessment and Plan: insulin SS. (13) Acute on chronic anemia Current Visit: Yes Status: Acute Assessment and Plan: Guaiac positive brown stools post small bowel obstruction Will continue to monitor H&H Could be dilutional since all cell lines are decreasing No signs of bleeding Type and screen Baseline from chart review as around 9-10 (14) DVT prophylaxis Current Visit: Yes Status: Acute Assessment and Plan: SCDs Was restarted on her Xarelto as surgery cleared for her to have OAC DVT Prophylaxis: as above - Time Spent with Patient Total time spent is greater than 50% in coordination of care (as documented) at patient's floor/unit and/or counseling patient: Plan of Care Discussed with: patient Internal Medicine: Result - Labs CBC & Chem 7: 11/23/17 04:00 11/23/17 06:20 Labs: Short CBC 11/23/17 Range/Units 04:00 WBC 18.8 H (4.3-11.1) K/mcL Hgb 9.1 L (11.5-15.4) g/dL Hct 28.9 L (35.3-44.9) % Plt Count 169 (140-400) K/mcL BMP 11/23/17 06:20 Sodium 135 L Potassium 3.7 Chloride 107 Carbon Dioxide 22 L BUN 10 Creatinine 0.45 L Glucose 116 H Calcium 9.0 - VTE Documentation of Mechanical Device: Intermittent pneumatic compression device Consult Discharge Plan - Plan Referrals: Marleny Robles, REMOTE ENCODING OPERATIONS SUPERVISOR [Primary Care Provider] - (4) Hypothyroidism Qualifiers: Hypothyroidism type: unspecified Qualified Code(s): E03.9 - Hypothyroidism, unspecified (5) Hyperlipemia Qualifiers: Hyperlipidemia type: unspecified Qualified Code(s): E78.5 - Hyperlipidemia, unspecified (8) Lung cancer Qualifiers: Laterality: left Lung location: lower lobe of lung Qualified Code(s): C34.32 - Malignant neoplasm of lower lobe, left bronchus or lung (9) Metastatic lung cancer (metastasis from lung to other site) Qualifiers: Laterality: unspecified laterality Qualified Code(s): C34.90 - Malignant neoplasm of unspecified part of unspecified bronchus or lung (10) COPD (chronic obstructive pulmonary disease) Qualifiers: COPD type: unspecified COPD Qualified Code(s): J44.9 - Chronic obstructive pulmonary disease, unspecified (11) Leukocytosis Qualifiers: Leukocytosis type: unspecified Qualified Code(s): D72.829 - Elevated white blood cell count, unspecified (12) Diabetes mellitus Qualifiers: Diabetes mellitus type: type 2 Diabetes mellitus 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
[2017-11-23] MEDS: *HR* Rivaroxaban 10 MG TABLET PO SCH (18:26)
[2017-11-23] MEDS: Furosemide 40 MG TABLET PO SCH (18:26)
[2017-11-23] MEDS: 0.9 % Sodium Chloride 1,000 ML IVC SCH (18:34)
[2017-11-24] MEDS: Piperacillin/Tazobactam 3.375 GM in 0.9 % Sodium Chloride Mini Bag 100 ML IVPB SCH ×4 (00:34→23:53)
[2017-11-24 04:15] LABS: Hematocrit 27.8 % (35.3-44.9); Hemoglobin 8.6 g/dL (11.5-15.4); Mean Corpuscular HGB Conc 30.9 g/dL (31.6-35.5); Mean Corpuscular Hemoglobin 24.2 pg (28.0-33.3); Mean Corpuscular Volume 78.1 fL (83.0-100.0); Mean Platelet Volume 9.9 fL (9.4-12.4); Platelet Count 155 K/mcL (140-400); Red Blood Count 3.56 M/mcL (3.82-4.97)
[2017-11-24 04:30] LABS: BUN/Creatinine Ratio 13 (6-26); Blood Urea Nitrogen 7 mg/dL (8-23); Calcium 9.1 mg/dL (8.6-10.3); Carbon Dioxide 23 mEq/L (23-29); Chloride 102 mEq/L (98-107); Glucose 104 mg/dL (70-105); Osmolality,Calculated 274 (280-300); Potassium 3.2 mEq/L (3.5-5.1); Sodium 133 mEq/L (136-145); eGFR For Non-African Americans > 60 (> 60)
[2017-11-24] MEDS: Levothyroxine 25 MCG TABLET PO SCH (06:18)
[2017-11-24] MEDS: Acetaminophen 325 MG TABLET PO PRN (06:24)
[2017-11-24] MEDS: Budesonide/Formoterol 160/4.5 1 PUFF INH IH SCH ×2 (08:18→19:57)
[2017-11-24] MEDS: Tiotropium 18 MCG inhalation IH SCH (08:18)
[2017-11-24] MEDS: MOM Conc 10 ML UD.LIQ PO SCH (10:02)
[2017-11-24] MEDS: Aspirin 81 MG TAB.CHEW PO SCH (10:02)
[2017-11-24] MEDS: Furosemide 40 MG TABLET PO SCH (10:03)
[2017-11-24] MEDS: Cyanocobalamin (B-12) 1,000 MCG TABLET PO SCH ×2 (10:03→21:37)
[2017-11-24] MEDS: Cholecalciferol (D-3) 1,000 UNIT TABLET PO SCH ×2 (10:03→21:37)
[2017-11-24 13:04] LABS: Eosinophils # 0.2 K/mcL (0.0-0.6); Lymphocytes # 3.5 K/mcL (0.6-4.6); Monocytes # 2.5 K/mcL (0.0-1.3)
[2017-11-24 13:12] LABS: Platelet Estimate Normal (Normal); Toxic Granulation Present (Not Present)
[2017-11-24 13:13] LABS: Anisocytosis 1+ (Not Present); Polychromasia 1+ (Not Present)
--- NOTE | 2017-11-24 14:33 | Internal Med Progress Note ---
Hospitalist Progress Note - Encounter Date of Encounter: 11/24/17 Time of Encounter: 08:30 - Subjective Interval History: Patient was seen and examined at bedside. She reports that she slept well. is having BMs, no pain, feels at baseline she was started on clear liquid diet which she tolerated. denies N/V. is having bowel movements. abdominal bloating and pain has resolved describes stools as brown/ kelly denies hematochezia, melena, hematemesis. palpitations have resolved denies fever, chills, palpitations, CP, SOB. - Exam Vitals: Temp Pulse Resp BP Pulse Ox 97.6 F 71 15 133/79 97 11/24/17 10:37 11/24/17 10:37 11/24/17 10:37 11/24/17 10:37 11/24/17 10:37 Exam: General: Patient is alert, oriented, no acute distress, Head: atraumatic, normocephalic, Eye: normal appearance, PERRL, no scleral icterus, no conjunctival injection ENT: mucous membranes moist, normal external ear exam Neck: normal inspection, trachea midline, full ROM, no carotid bruits Chest: normal inspection, symmetric chest rise Respiratory: Good respiratory effort. Bilateral breath sounds are clear without wheezing, crackles, or rhonchi. Cardiovascular: irregular s1 and s2 No clicks, rubs, gallops, or murmors. Abdomen: BS+ve, soft non-tender reducible hernia, midline abdominal scar that is well healed musculoskeletal: Spontaneously moving all extremities. no edema of calf tenderness. Skin: warm, dry, intact. Neuro: Alert and oriented x4. Sensation light touch intact. Cranial nerves 2- 12 is intact. Psych: Patient's affect is normal - Assessment and Plan (1) Small bowel obstruction Current Visit: Yes Status: Acute Assessment and Plan: patient is having BMs Will continue to monitor H&H, has trended up to 9.1 guaiac positive but brown/kelly stools - suspecting that it was due to obstruction tolerating PO diet surgery recommendations appreciated will continue zosyn for now- still has leukocytosis Will discontinue Carlson catheter continue with GI prophylaxis miralax daily / (2) Leukocytosis Current Visit: Yes Status: Acute Assessment and Plan: CT did not reveal bowel perforation blood culture final reading is pending continue empirical antibiotics with IV Zosyn. WBC count was trending down but back to 19 again. UA negative, CXR is negative for infilterates ID consulted will send procalcitonin and peripheral smear to evaluate for toxic granules. (3) Acute on chronic anemia Current Visit: Yes Status: Acute Assessment and Plan: Guaiac positive brown stools post small bowel obstruction Will continue to monitor H&H Could be dilutional since all cell lines are decreasing No signs of bleeding Type and screen Baseline from chart review as around 9-10 (4) Paroxysmal atrial fibrillation Current Visit: No Status: Chronic Assessment and Plan: Metoprolol 50 twice a day was started orally as she is cleared by surgery to have oral medications- HR is more controlled Xarelto and aspirin was started she was cleared by surgery to start OAC We will continue telemetry monitoring (5) Hypothyroidism Current Visit: No Status: Chronic Assessment and Plan: on home dose synthroid (6) Hyperlipemia Current Visit: No Status: Chronic Assessment and Plan: Continue home medications. (7) Elevated troponin Current Visit: Yes Status: Acute Assessment and Plan: secondary to Afib with RVR and supply vs. mismatch has been chest pain free since admission has stress test on 12/23/2015- perfusion imaging was negative for ischemia or infarct (8) Diastolic CHF, chronic Current Visit: No Status: Chronic Assessment and Plan: will start her lasix 40 mg Qday and gradually increase to her home dose Had TTE in may 2017- EF 60-65% (9) Lung cancer Current Visit: No Status: Chronic Assessment and Plan: small cell lung cancer stage IV Treatment history includes carboplatin/etoposide 04/18/17-08/01/17 x6 cycles, Irinotecan 09/07/17 x4 until 11/07/17 with progressive liver lesions treatment most recently changed to Taxotere Q3W cycle #1 11/16/2017. Patient follow-up with cancer center. S/p Chemo 11/16/17 oncology on board will follow recommendations Palliative was consulted for goals of care (10) Metastatic lung cancer (metastasis from lung to other site) Current Visit: Yes Status: Chronic Assessment and Plan: Management as above (11) COPD (chronic obstructive pulmonary disease) Current Visit: No Status: Chronic Assessment and Plan: Continue home medications. (12) Diabetes mellitus Current Visit: Yes Status: Acute Assessment and Plan: insulin SS. (13) DVT prophylaxis Current Visit: Yes Status: Acute Assessment and Plan: SCDs Was restarted on her Xarelto as surgery cleared for her to have OAC (14) Hypokalemia Current Visit: Yes Status: Resolved Assessment and Plan: replaced will continue to follow electrolytes daily and replace as needed DVT Prophylaxis: as per above - Time Spent with Patient Total time spent is greater than 50% in coordination of care (as documented) at patient's floor/unit and/or counseling patient: Internal Medicine: Result - Labs CBC & Chem 7: 11/24/17 03:33 11/24/17 03:33 Labs: Short CBC 11/24/17 Range/Units 03:33 WBC 19.4 H (4.3-11.1) K/mcL Hgb 8.6 L (11.5-15.4) g/dL Hct 27.8 L (35.3-44.9) % Plt Count 155 (140-400) K/mcL Neutrophils # 13.0 H (1.6-8.9) K/mcL BMP 11/24/17 03:33 Sodium 133 L Potassium 3.2 L Chloride 102 Carbon Dioxide 23 BUN 7 L Creatinine 0.52 L Glucose 104 Calcium 9.1 - VTE Documentation of Mechanical Device: Intermittent pneumatic compression device Consult Discharge Plan - Plan Referrals: Marleny Robles, OPERATIONS MANAGEMENT TRAINEE [Primary Care Provider] - (2) Leukocytosis Qualifiers: Leukocytosis type: unspecified Qualified Code(s): D72.829 - Elevated white blood cell count, unspecified (5) Hypothyroidism Qualifiers: Hypothyroidism type: unspecified Qualified Code(s): E03.9 - Hypothyroidism, unspecified (6) Hyperlipemia Qualifiers: Hyperlipidemia type: unspecified Qualified Code(s): E78.5 - Hyperlipidemia, unspecified (9) Lung cancer Qualifiers: Laterality: left Lung location: lower lobe of lung Qualified Code(s): C34.32 - Malignant neoplasm of lower lobe, left bronchus or lung (10) Metastatic lung cancer (metastasis from lung to other site) Qualifiers: Laterality: unspecified laterality Qualified Code(s): C34.90 - Malignant neoplasm of unspecified part of unspecified bronchus or lung (11) COPD (chronic obstructive pulmonary disease) Qualifiers: COPD type: unspecified COPD Qualified Code(s): J44.9 - Chronic obstructive pulmonary disease, unspecified (12) Diabetes mellitus Qualifiers: Diabetes mellitus type: type 2 Diabetes 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
[2017-11-24] MEDS: *HR* Rivaroxaban 10 MG TABLET PO SCH (17:09)
[2017-11-24] MEDS: 0.9 % Sodium Chloride 1,000 ML IVC SCH ×2 (21:34→21:37)
[2017-11-24] MEDS: Metoprolol XL (24 HR) Succ 50 MG TAB.ER.24H PO SCH (21:36)
[2017-11-24] MEDS: Vitamin B Complex/Vit C/Vit E 1 EACH TABLET PO SCH (21:36)
[2017-11-24] MEDS: Ascorbic Acid 500 MG TABLET PO SCH (21:37)
[2017-11-25 04:41] LABS: Hematocrit 26.3 % (35.3-44.9); Hemoglobin 8.4 g/dL (11.5-15.4); Mean Corpuscular HGB Conc 31.9 g/dL (31.6-35.5); Mean Corpuscular Volume 78.3 fL (83.0-100.0); Mean Platelet Volume 10.4 fL (9.4-12.4); Nucleated Red Blood Cells 0.2 /100 WBC (0); Platelet Count 124 K/mcL (140-400); Red Blood Count 3.36 M/mcL (3.82-4.97); Red Cell Distribution Width 22.1 % (11.5-14.5)
[2017-11-25 05:00] LABS: BUN/Creatinine Ratio 12 (6-26); Blood Urea Nitrogen 5 mg/dL (8-23); Calcium 8.8 mg/dL (8.6-10.3); Carbon Dioxide 24 mEq/L (23-29); Chloride 103 mEq/L (98-107); Glucose 108 mg/dL (70-105); Osmolality,Calculated 276 (280-300); Potassium 3.5 mEq/L (3.5-5.1); Sodium 134 mEq/L (136-145); eGFR For Non-African Americans > 60 (> 60)
[2017-11-25 05:19] LABS: Monocytes # 1.3 K/mcL (0.0-1.3); Neutrophils # 13.9 K/mcL (1.6-8.9)
[2017-11-25 05:21] LABS: Platelet Estimate Normal (Normal); Polychromasia 1+ (Not Present); Toxic Granulation Present (Not Present)
[2017-11-25 05:22] LABS: Anisocytosis 1+ (Not Present)
[2017-11-25] MEDS: Levothyroxine 25 MCG TABLET PO SCH (05:35)
[2017-11-25] MEDS: Tiotropium 18 MCG inhalation IH SCH (08:07)
[2017-11-25] MEDS: Budesonide/Formoterol 160/4.5 1 PUFF INH IH SCH ×2 (08:07→19:53)
[2017-11-25] MEDS: Piperacillin/Tazobactam 3.375 GM in 0.9 % Sodium Chloride Mini Bag 100 ML IVPB SCH ×2 (08:53→16:05)
[2017-11-25] MEDS: Cyanocobalamin (B-12) 1,000 MCG TABLET PO SCH (08:55)
[2017-11-25] MEDS: Furosemide 40 MG TABLET PO SCH (08:55)
[2017-11-25] MEDS: Aspirin 81 MG TAB.CHEW PO SCH (08:55)
[2017-11-25] MEDS: MOM Conc 10 ML UD.LIQ PO SCH (09:02)
[2017-11-25] MEDS: Cholecalciferol (D-3) 1,000 UNIT TABLET PO SCH (09:13)
--- NOTE | 2017-11-25 11:19 | Internal Med Progress Note ---
Hospitalist Progress Note - Encounter Date of Encounter: 11/25/17 Time of Encounter: 09:00 - Subjective Interval History: Patient was seen and examined at bedside. She reports that she slept well. is having BMs, no pain, feels at baseline tolerating diet denies N/V. is having bowel movements. abdominal bloating and pain has resolved describes stools as brown/ kelly denies hematochezia, melena, hematemesis. palpitations have resolved denies fever, chills, palpitations, CP, SOB. - Exam Vitals: Temp Pulse Resp BP Pulse Ox 98.2 F 87 15 139/74 95 11/25/17 10:14 11/25/17 10:14 11/25/17 10:14 11/25/17 10:14 11/25/17 10:14 Exam: General: Patient is alert, oriented, no acute distress, Head: atraumatic, normocephalic, Eye: normal appearance, PERRL, no scleral icterus, no conjunctival injection ENT: mucous membranes moist, normal external ear exam Neck: normal inspection, trachea midline, full ROM, no carotid bruits Chest: normal inspection, symmetric chest rise Respiratory: Good respiratory effort. Bilateral breath sounds are clear without wheezing, crackles, or rhonchi. Cardiovascular: irregular s1 and s2 No clicks, rubs, gallops, or murmors. Abdomen: BS+ve, soft non-tender reducible hernia, midline abdominal scar that is well healed musculoskeletal: Spontaneously moving all extremities. no edema of calf tenderness. Skin: warm, dry, intact. Neuro: Alert and oriented x4. Sensation light touch intact. Cranial nerves 2- 12 is intact. Psych: Patient's affect is normal - Assessment and Plan (1) Small bowel obstruction Current Visit: Yes Status: Resolved Assessment and Plan: patient is having BMs Will continue to monitor H&H, has trended up to 9.1 guaiac positive but brown/kelly stools - suspecting that it was due to obstruction tolerating PO diet surgery recommendations appreciated will continue zosyn for now- still has leukocytosis Will discontinue Carlson catheter continue with GI prophylaxis miralax daily / (2) Leukocytosis Current Visit: Yes Status: Acute Assessment and Plan: CT did not reveal bowel perforation blood culture final reading is pending continue empirical antibiotics with IV Zosyn. WBC count is trending down again now 16.2 UA negative, CXR is negative for infilterates ID consulted procalcitonin and peripheral smear to evaluate for toxic granules sent will follow (3) Acute on chronic anemia Current Visit: Yes Status: Acute Assessment and Plan: Guaiac positive brown stools post small bowel obstruction Will continue to monitor H&H Could be dilutional since all cell lines are decreasing No signs of bleeding Type and screen Baseline from chart review as around 9-10 needs colonoscopy as OP (4) Paroxysmal atrial fibrillation Current Visit: No Status: Chronic Assessment and Plan: Metoprolol 50 twice a day was started orally as she is cleared by surgery to have oral medications- HR is more controlled Xarelto and aspirin was started she was cleared by surgery to start OAC We will continue telemetry monitoring (5) Hypothyroidism Current Visit: No Status: Chronic Assessment and Plan: on home dose synthroid (6) Hyperlipemia Current Visit: No Status: Chronic Assessment and Plan: Continue home medications. (7) Elevated troponin Current Visit: Yes Status: Acute Assessment and Plan: secondary to Afib with RVR and supply vs. mismatch has been chest pain free since admission has stress test on 12/23/2015- perfusion imaging was negative for ischemia or infarct (8) Diastolic CHF, chronic Current Visit: No Status: Chronic Assessment and Plan: will start her lasix 40 mg Qday and gradually increase to her home dose Had TTE in may 2017- EF 60-65% (9) Lung cancer Current Visit: No Status: Chronic Assessment and Plan: small cell lung cancer stage IV Treatment history includes carboplatin/etoposide 04/18/17-08/01/17 x6 cycles, Irinotecan 09/07/17 x4 until 11/07/17 with progressive liver lesions treatment most recently changed to Taxotere Q3W cycle #1 11/16/2017. Patient follow-up with cancer center. S/p Chemo 11/16/17 oncology on board will follow recommendations Palliative was consulted for goals of care (10) Metastatic lung cancer (metastasis from lung to other site) Current Visit: Yes Status: Chronic Assessment and Plan: Management as above (11) COPD (chronic obstructive pulmonary disease) Current Visit: No Status: Chronic Assessment and Plan: Continue home medications. (12) Diabetes mellitus Current Visit: Yes Status: Acute Assessment and Plan: insulin SS. (13) DVT prophylaxis Current Visit: Yes Status: Acute Assessment and Plan: SCDs Was restarted on her Xarelto as surgery cleared for her to have OAC (14) Hypokalemia Current Visit: Yes Status: Resolved Assessment and Plan: replaced and now resolved will continue to follow electrolytes daily and replace as needed DVT Prophylaxis: as above - Time Spent with Patient Total time spent is greater than 50% in coordination of care (as documented) at patient's floor/unit and/or counseling patient: Plan of Care Discussed with: patient Internal Medicine: Result - Labs CBC & Chem 7: 11/25/17 04:10 11/25/17 04:10 Labs: Short CBC 11/24/17 11/25/17 Range/Units 03:33 04:10 WBC 19.4 H 16.2 H (4.3-11.1) K/mcL Hgb 8.6 L 8.4 L (11.5-15.4) g/dL Hct 27.8 L 26.3 L (35.3-44.9) % Plt Count 155 124 L (140-400) K/mcL Neutrophils # 13.0 H 13.9 H (1.6-8.9) K/mcL BMP 11/25/17 04:10 Sodium 134 L Potassium 3.5 Chloride 103 Carbon Dioxide 24 BUN 5 L Creatinine 0.43 L Glucose 108 H Calcium 8.8 - VTE Documentation of Mechanical Device: Intermittent pneumatic compression device Consult Discharge Plan - Plan Referrals: Marleny Robles, MODELING AND SIMULATION ANALYST [Primary Care Provider] - (2) Leukocytosis Qualifiers: Leukocytosis type: unspecified Qualified Code(s): D72.829 - Elevated white blood cell count, unspecified (5) Hypothyroidism Qualifiers: Hypothyroidism type: unspecified Qualified Code(s): E03.9 - Hypothyroidism, unspecified (6) Hyperlipemia Qualifiers: Hyperlipidemia type: unspecified Qualified Code(s): E78.5 - Hyperlipidemia, unspecified (9) Lung cancer Qualifiers: Laterality: left Lung location: lower lobe of lung Qualified Code(s): C34.32 - Malignant neoplasm of lower lobe, left bronchus or lung (10) Metastatic lung cancer (metastasis from lung to other site) Qualifiers: Laterality: unspecified laterality Qualified Code(s): C34.90 - Malignant neoplasm of unspecified part of unspecified bronchus or lung (11) COPD (chronic obstructive pulmonary disease) Qualifiers: COPD type: unspecified COPD Qualified Code(s): J44.9 - Chronic obstructive pulmonary disease, unspecified (12) Diabetes mellitus Qualifiers: Diabetes mellitus type: type 2 Diabetes mellitus residential insulin use: unspecified termite 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
[2017-11-25] MEDS: *HR* Rivaroxaban 10 MG TABLET PO SCH (16:48)
--- NOTE | 2017-11-25 16:48 | Discharge Summary ---
- NOTES TO OUTPATIENT PROVIDER Notes to Outpatient Provider: follow up with CBC. follow up with GI for colonoscopy as OP - guaiac positive. follow up with Dr. White with oncology Orders not resulted at time of discharge: Pending orders 11/24/17 11:46 Procalcitonin Stat 11/26/17 04:00 BMP [Basic Metabolic Panel] AM 0400 Complete Blood Count [HEME] AM 0400 Date of Encounter: 11/26/17 Time of Encounter: 12:12 - Discharge Diagnosis (1) Small bowel obstruction Priority: Primary Status: Resolved (2) Leukocytosis Priority: Secondary Status: Acute Qualifiers: Leukocytosis type: unspecified Qualified Code(s): D72.829 - Elevated white blood cell count, unspecified (3) Acute on chronic anemia Priority: Secondary Status: Acute (4) Paroxysmal atrial fibrillation Priority: Secondary Status: Chronic (5) Hypothyroidism Priority: Secondary Status: Chronic Qualifiers: Hypothyroidism type: unspecified Qualified Code(s): E03.9 - Hypothyroidism , unspecified (6) Hyperlipemia Priority: Secondary Status: Chronic Qualifiers: Hyperlipidemia type: unspecified Qualified Code(s): E78.5 - Hyperlipidemia , unspecified (7) Elevated troponin Priority: Secondary Status: Acute (8) Diastolic CHF, chronic Priority: Secondary Status: Chronic (9) Lung cancer Priority: Secondary Status: Chronic Qualifiers: Laterality: left Lung location: lower lobe of lung Qualified Code(s): C34.32 - Malignant neoplasm of lower lobe, left bronchus or lung (10) Metastatic lung cancer (metastasis from lung to other site) Priority: Secondary Status: Chronic Qualifiers: Laterality: unspecified laterality Qualified Code(s): C34.90 - Malignant neoplasm of unspecified part of unspecified bronchus or lung (11) COPD (chronic obstructive pulmonary disease) Priority: Secondary Status: Chronic Qualifiers: COPD type: unspecified COPD Qualified Code(s): J44.9 - Chronic obstructive pulmonary disease, unspecified (12) Diabetes mellitus Priority: Secondary Status: Acute Qualifiers: Diabetes mellitus type: type 2 Diabetes mellitus terminal 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 Manning is a 67 year old female with past medical history of lung cancer, follows with the cancer center. She also has a history of [place], stent placement, CHF, DM, HLP, and ventral hernia. Received a new chemotherapy 11/16/17 Taxotere. Presented to ER for nausea, vomiting. Found to have SBO surgery was consulted and she has been treated with conservative management of IV Abx,NG, NPO, TPN and GI stimulants. her SBO was resolved. oncology was consulted for stage IV lung cancer now with mets to liver adn recommendatiosn followed. she had leukocytosis since admission date and was treated with IV Abx. ID was consulted as leukocytosis trended up and recommendations followed. leukocytosis trended down on discharge date. palliative was consulted for goals of care and Patient desires to remain Full Code and seek aggressive treatments for cancer. CT/CT abd pelvis wo no iv no oral IMPRESSION: 1. Most likely explanation for the patient's symptoms is acute small bowel obstruction. No evidence of perforation. 2. Progression of metastatic disease with extensive liver masses which have somewhat grown from the previous evaluation. 3. Redemonstration of left lower lobe mass. 4. Redemonstration of ventral fat containing hernia. - Time Spent with Patient Total time spent providing and/or coordinating discharge services: Greater than 30 minutes (35) - Discharge Medications Prescriptions: MOM Conc [MILK OF MAGNESIA conc] 30 ml PO Q48H 15 Days #15 ud.liq Omeprazole [PriLOSEC] 20 mg PO DAILY@0630 #30 capsule.dr Home Medications: Furosemide [Lasix] 80 mg PO DAILY 04/20/15 [History] Hydroxychloroquine [Plaquenuil] 200 mg PO BID 04/20/15 [History] Levothyroxine [Synthroid] 37.5 mcg PO 0630 04/20/15 [History] Potassium Chloride 10 meq PO DAILY 04/20/15 [History] Sertraline [Zoloft] 200 mg PO DAILY 04/20/15 [History] Tizanidine HCl [Zanaflex] 4 mg PO TID PRN 04/20/15 [History] Aspirin 81 mg PO DAILY #30 tab.chew 04/28/15 [Rx] Atorvastatin [Lipitor] 40 mg PO HS 30 Days tablet 04/28/15 [Rx] Albuterol Sulfate [Proair Hfa] 2 puff IH Q4H PRN 06/10/15 [History] Ascorbic Acid [Vitamin C] 250 mg PO DAILY 06/10/15 [History] Calcium Carbonate/Vitamin D3 [Calcium 600 + Vit D Softgel] 1 each PO BID [History] Cholecalciferol (D-3) [Vitamin D] 2,000 unit PO BID 06/10/15 [History] Cyanocobalamin (Vitamin B-12) [Vitamin B-12] 2,500 mcg SL DAILY 06/10/15 [ History] Nitroglycerin [Nitrostat] 0.4 mg SL Q5M PRN 06/10/15 [History] [place]-3 Fatty Acids [Fish Oil] 1,000 mg PO BID 06/10/15 [History] Rivaroxaban [Xarelto] 20 mg PO DAILY 06/10/15 [History] Acetaminophen [Tylenol] 325 mg PO Q6HR PRN 03/28/17 [History] Budesonide/Formoterol 160/4.5 [Symbicort 160/4.5] 2 puff IH BIDR 03/28/17 [ History] Lidocaine Patch [Lidoderm 5% patch] 2 each TP DAILY 03/28/17 [History] Simethicone [Gas Relief] 125 mg PO QID PRN 03/28/17 [History] Tiotropium [Spiriva] 1 inh IH DAILY 03/28/17 [History] Vitamin B Complex [B Complex] 1 each PO DAILY 03/28/17 [History] guaiFENesin [Guaifenesin] 600 mg PO DAILY PRN 03/28/17 [History] Lidocaine/Prilocaine CREAM [Emla] 5 gm TP ONCE #1 tube 04/06/17 [Rx] Metoprolol XL (24 HR) Succ [Toprol Xl] 100 mg PO DAILY 06/12/17 [History] Ondansetron [Zofran] 8 mg PO Q8HR PRN #90 tablet 09/07/17 [Rx] Magic Mouthwash [Magic Mouthwash BLM] 10 ml PO QID PRN #240 ml 10/19/17 [Rx] Dexamethasone [Decadron] 4 mg PO BID #36 tab 11/16/17 [Rx] Prochlorperazine Maleate [Compazine] 10 mg PO Q8HR PRN #90 tablet 11/16/17 [Rx] Tramadol HCl [Ultram] 50 mg PO TID PRN 30 Days #90 tab 11/16/17 [Rx] Zolpidem [Ambien] 5 mg PO HS PRN 30 Days #30 tablet 11/16/17 [Rx] MOM Conc [MILK OF MAGNESIA conc] 30 ml PO Q48H 15 Days #15 ud.liq 11/26/17 [Rx] Omeprazole [PriLOSEC] 20 mg PO DAILY@30 #30 capsule. 11/26/17 [Rx] Allergies/Adverse Reactions: 3 Allergy/AdvReac Type Severity Reaction Status Date / Time duloxetine [From Cymbalta] Allergy Itching Verified 11/16/17 12:46 Metaxalone [From Skelaxin] Allergy Itching Verified 11/16/17 12:46 valdecoxib [From Bextra] Allergy Itching Verified 11/16/17 12:46 bupropion [From Wellbutrin] AdvReac See Verified 11/16/17 12:46 Comments meperidine [From Demerol] AdvReac Nausea Verified 11/16/17 12:46 pentazocine [From Talwin] AdvReac See Verified 11/16/17 12:46 Comments eggs AdvReac Abdominal Uncoded 11/16/17 12:46 Pain Date of admission: 11/19/17 18:26 Primary care physician: Marleny Robles CNP Consults: 11/21/17 08:21 Consult to Nutrition [CONS] Routine Comment: Consulting Provider: NUTRITION Reason for Dietary Consult: TPN Start and Manage 11/21/17 12:36 Consult to Invasive Line Access Team [CONS] Routine Reason for Consult: Picc Line Insertion Line Type: PICC 11/22/17 13:43 Consult to Palliative Care [CONS] Routine Comment: Consulting Provider: Palliative Care Ennice Reason for Consult: 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 MICHAEL FOR WORSENING LEUKOCYTOSIS Call Completed: Yes - Constitutional Vitals: Temp Pulse Resp BP Pulse Ox 98.7 F 93 15 125/75 94 08/05/18 14:24 11/25/17 14:24 11/25/17 14:24 11/25/17 14:24 11/25/17 14:24 General appearance: Present: A&O X 3, answers questions appropriately Exam: General: Patient is alert, oriented, no acute distress, Head: atraumatic, normocephalic, Eye: normal appearance, PERRL, no scleral icterus, no conjunctival injection ENT: mucous membranes moist, normal external ear exam Neck: normal inspection, trachea midline, full ROM, no carotid bruits Chest: normal inspection, symmetric chest rise Respiratory: Good respiratory effort. Bilateral breath sounds are clear without wheezing, crackles, or rhonchi. Cardiovascular: irregular s1 and s2 No clicks, rubs, gallops, or murmors. Abdomen: BS+ve, soft non-tender reducible hernia, midline abdominal scar that is well healed musculoskeletal: Spontaneously moving all extremities. no edema of calf tenderness. Skin: warm, dry, intact. Neuro: Alert and oriented x4. Sensation light touch intact. Cranial nerves 2- 12 is intact. Psych: Patient's affect is normal - Patient Status Disposition: Home, Self-Care Condition: Fair Overall status at discharge: patient is progressing back to baseline - Discharge Instructions Follow Up With: Dakota Tsai MD [Partnered Physician] - 12/07/17 8:30 am Marleny Robles CNP [Primary Care Provider] - 12/04/17 10:00 am Nirmala Alex MD [Partnered Physician] - (Web request sent on 11/26.) - Diet and Activity Activity: increase activity as tolerated Diet: advance to your usual diet - VTE Documentation of Mechanical Device: Intermittent pneumatic compression device
[2017-11-25] MEDS: Acetaminophen 325 MG TABLET PO PRN (20:58)
[2017-11-26] MEDS: Piperacillin/Tazobactam 3.375 GM in 0.9 % Sodium Chloride Mini Bag 100 ML IVPB SCH ×2 (00:36→08:52)
[2017-11-26 05:04] LABS: Basophils % 0.3 %; Eosinophils % 0.3 %; Hematocrit 26.3 % (35.3-44.9); Hemoglobin 8.4 g/dL (11.5-15.4); Immature Granulocytes % 4.4 % (0-4); Lymphocytes # 2.2 K/mcL (0.6-4.6); Mean Corpuscular HGB Conc 31.9 g/dL (31.6-35.5); Mean Corpuscular Hemoglobin 24.9 pg (28.0-33.3); Mean Platelet Volume 10.3 fL (9.4-12.4); Monocytes # 1.1 K/mcL (0.0-1.3); Monocytes % 7.1 %; Neutrophils # 10.8 K/mcL (1.6-8.9); Nucleated Red Blood Cells 0.3 /100 WBC (0); Platelet Count 119 K/mcL (140-400); Red Blood Count 3.37 M/mcL (3.82-4.97); Red Cell Distribution Width 22.3 % (11.5-14.5); Segmented Neutrophils % 72.9 %
[2017-11-26 05:20] LABS: BUN/Creatinine Ratio 14 (6-26); Blood Urea Nitrogen 6 mg/dL (8-23); Carbon Dioxide 24 mEq/L (23-29); Chloride 102 mEq/L (98-107); Glucose 114 mg/dL (70-105); Osmolality,Calculated 274 (280-300); Potassium 3.6 mEq/L (3.5-5.1); Sodium 133 mEq/L (136-145); eGFR For Non-African Americans > 60 (> 60)
[2017-11-26] MEDS: Levothyroxine 25 MCG TABLET PO SCH (06:32)
[2017-11-26] MEDS: Cholecalciferol (D-3) 1,000 UNIT TABLET PO SCH (08:52)
[2017-11-26] MEDS: Cyanocobalamin (B-12) 1,000 MCG TABLET PO SCH (08:52)
[2017-11-26] MEDS: Furosemide 40 MG TABLET PO SCH (08:52)
[2017-11-26] MEDS: Aspirin 81 MG TAB.CHEW PO SCH (08:52)
[2017-11-26] MEDS: MOM Conc 10 ML UD.LIQ PO SCH (08:52)
--- NOTE | 2017-11-26 09:36 | Event Note ---
Date of Encounter: 11/26/17 Time of Encounter: 09:10 Patient sitting up at bedside upon arrival. Patient is alert and oriented times 3. No family present at bedside. Patient reports ready for discharge; awaiting Infectious Disease to make recommendations. Patient expresses desire to remain full code, return home with daughter, and continue aggressive cancer treatment at this time. Acknowledges that she knows CHF, COPD, and Cancer are all " sentences" and she desires continued time, "as much as I can." Educated patient on the availability of Home health and hospice should she decide to pursue either of these options; verbalized understanding and denies need at present time. VSS. Denies pain, anxiety, dyspnea, nausea, vomiting. Palliative care will sign off; no further needs at this time. Thank you for including our team in your patient's care. Please reconsult if needed.
[2017-11-26 10:41] VITALS: BP 128/76
[2017-11-26] MEDS: Budesonide/Formoterol 160/4.5 1 PUFF INH IH SCH (11:10)
[2017-11-26] MEDS: Tiotropium 18 MCG inhalation IH SCH (11:10)
--- NOTE | 2017-11-26 13:35 | Infectious Disease Consult ---
Date of Encounter: 11/27/17 Time of Encounter: 13:28 Assessment and Plan (1) Leukocytosis Status: Acute Assessment and plan: leukocytosis is likely to bowel obstruction and malignancy currently patient's lab work, imaging, ROS and physicial exam does not reveal any infection recommend stopping all antibiotics and observing d/w hospitalist team Qualifiers: Leukocytosis type: unspecified Qualified Code(s): D72.829 - Elevated white blood cell count, unspecified (2) Tobacco abuse Status: Acute (3) COPD (chronic obstructive pulmonary disease) Status: Chronic Qualifiers: COPD type: unspecified COPD Qualified Code(s): J44.9 - Chronic obstructive pulmonary disease, unspecified (4) Partial small bowel obstruction Status: Acute (5) Rheumatoid arthritis Status: Chronic Qualifiers: Rheumatoid arthritis location: unspecified site Rheumatoid factor presence : unspecified presence Qualified Code(s): M06.9 - Rheumatoid arthritis, unspecified (6) History of lung cancer Status: Acute Infectious Disease HPI - Data of Consult Patient: new to practice Consult date: 11/26/17 Requesting Physician: Nessa Isaacs MD Primary Care Provider: Marleny Robles CNP - Consult Narrative Reason for consult: persistent leukocytosis History of present illness: Ms. Manning is a 67 year old female Patient is 67-year-old woman who presented to [facility] on 11/19/2017 with nausea and vomiting. We are consulted on 11/26/2017 for persistent leukocytosis. Patient is 67-year-old woman with past medical history mentioned below including history of lung cancer. The lung cancer [facility], advanced COPD requiring no treatments at home, history of PA and stent placement, congestive heart failure, diabetes mellitus type 2, hyperlipidemia and a large ventral hernia was receiving chemotherapy a week prior to admission as per patient and started having nausea and vomiting and abdominal pain. Patient was feeling worse so decided to come to the hospital on November 19. Since admission, patient has been afebrile with a MAXIMUM TEMPERATURE of 99.9. Patient had tachycardia and went into A. fib with RVR. She was also tachycardia take at one point. Her presenting labs revealed a WBC of 23.5 with 90% neutrophils but no bands. Patient's kidney function was stable and had no lactic acidosis. Blood cultures were obtained and came back negative. Initial chest x-ray showed no acute cardiopulmonary process. A CT abdomen and pelvis done on November 19 read most likely explains of the patient's symptoms is acute small bowel obstruction with no evidence of perforation. Progression of metastatic disease with extensive liver masses which have somewhat grown from the previous evaluation. And redemonstration of the left lower lobe mass. Patient had serial abdominal x-rays which showed no perforation and patient was having a bowel movement. Patient was seen by surgery and I appreciate the recommendations. Patient continues to have persistent leukocytosis and was on Zosyn. I was asked to evaluate the patient and make further recommendations. Currently patient denies any headache, denies any sore throat or runny nose or URI symptoms. Patient does not have any chest pain but she has this chronic cough since she was diagnosed with the malignancy of the lung. Patient denies any hemoptysis or pleuritic chest pain. Patient denies any nausea or vomiting and states that she is having bowel movements now. Patient denies any abdominal pain. Patient denies any urinary symptoms. Review of systems really unremarkable. CC: Nessa Isaacs MD Past Med Surg Social Fam HX - Past Medical History Medical history: arthritis, asthma, atrial fibrillation, cancer, CHF, COPD, DVT , hypertension, kidney stones, myocardial infarction, peripheral artery disease , RA, thyroid disease, other Additional medical history: Glomerulonephritis. Pulmonary Nodule. Osteoarthritis. Fibrocistic Breast Disease. Spinal Stenosis. TIA. PA x2. CAD. Cologard positive Psychiatric history: depression - Past Surgical History Surgical History: angioplasty/stent, appendectomy, breast surgery, , cholecystectomy, herniorrhaphy, orthopedic, other, other Additional surgical history: ORIF Right Ankle. Gastric Bypass. Heart stents - Social History Smoking Status: Former smoker Smokeless Tobacco Status: No Alcohol use: none Drug use: none - Family History Brother Living Status: Still Living Hx Family Cancer: Yes (Lung cancer with metastasis to the brain) Sister Living Status: Still Living Hx Family Endocrine Disorder: Yes (Thyroid disease) Daughter Adopted: No Living Status: Still Living Hx Family Neurologic Disorders: Yes (stroke x2) Father Living Status: Hx Family Cardiac Disorders: Yes (hypertension) Mother Adopted: No Family Member Ethnicity: Non- Living Status: Hx Family Cardiac Disorders: Yes (CHF) Hx Family Respiratory Disorders: No Hx Family Cancer: Yes (breast) Hx Family GI Disorders: No Hx Family Endocrine Disorder: Yes (goiter removal) Hx Family Neuromuscular Disorders: No Hx Family Neurologic Disorders: Yes (seizures from meningioma) Hx Family HEENT Disorders: Yes (cataracts) Hx Family Autoimmune Disorders: No Infectious Disease-CN:Meds Furosemide [Lasix] 80 mg PO DAILY 04/20/15 [History] Hydroxychloroquine [Plaquenuil] 200 mg PO BID 04/20/15 [History] Levothyroxine [Synthroid] 37.5 mcg PO 0630 04/20/15 [History] Potassium Chloride 10 meq PO DAILY 04/20/15 [History] Sertraline [Zoloft] 200 mg PO DAILY 04/20/15 [History] Tizanidine HCl [Zanaflex] 4 mg PO TID PRN 04/20/15 [History] Aspirin 81 mg PO DAILY #30 tab.chew 04/28/15 [Rx] Atorvastatin [Lipitor] 40 mg PO HS 30 Days tablet 04/28/15 [Rx] Albuterol Sulfate [Proair Hfa] 2 puff IH Q4H PRN 06/10/15 [History] Ascorbic Acid [Vitamin C] 250 mg PO DAILY 06/10/15 [History] Calcium Carbonate/Vitamin D3 [Calcium 600 + Vit D Softgel] 1 each PO BID [History] Cholecalciferol (D-3) [Vitamin D] 2,000 unit PO BID 06/10/15 [History] Cyanocobalamin (Vitamin B-12) [Vitamin B-12] 2,500 mcg SL DAILY 06/10/15 [ History] Nitroglycerin [Nitrostat] 0.4 mg SL Q5M PRN 06/10/15 [History] [place]-3 Fatty Acids [Fish Oil] 1,000 mg PO BID 06/10/15 [History] Rivaroxaban [Xarelto] 20 mg PO DAILY 06/10/15 [History] Acetaminophen [Tylenol] 325 mg PO Q6HR PRN 03/28/17 [History] Budesonide/Formoterol 160/4.5 [Symbicort 160/4.5] 2 puff IH BIDR 03/28/17 [ History] Lidocaine Patch [Lidoderm 5% patch] 2 each TP DAILY 03/28/17 [History] Simethicone [Gas Relief] 125 mg PO QID PRN 03/28/17 [History] Tiotropium [Spiriva] 1 inh IH DAILY 03/28/17 [History] Vitamin B Complex [B Complex] 1 each PO DAILY 03/28/17 [History] guaiFENesin [Guaifenesin] 600 mg PO DAILY PRN 03/28/17 [History] Lidocaine/Prilocaine CREAM [Emla] 5 gm TP ONCE #1 tube 04/06/17 [Rx] Metoprolol XL (24 HR) Succ [Toprol Xl] 100 mg PO DAILY 06/12/17 [History] Ondansetron [Zofran] 8 mg PO Q8HR PRN #90 tablet 09/07/17 [Rx] Magic Mouthwash [Magic Mouthwash BLM] 10 ml PO QID PRN #240 ml 10/19/17 [Rx] Dexamethasone [Decadron] 4 mg PO BID #36 tab 11/16/17 [Rx] Prochlorperazine Maleate [Compazine] 10 mg PO Q8HR PRN #90 tablet 11/16/17 [Rx] Tramadol HCl [Ultram] 50 mg PO TID PRN 30 Days #90 tab 11/16/17 [Rx] Zolpidem [Ambien] 5 mg PO HS PRN 30 Days #30 tablet 11/16/17 [Rx] MOM Conc [MILK OF MAGNESIA conc] 30 ml PO Q48H 15 Days #15 ud.liq 11/26/17 [Rx] Omeprazole [PriLOSEC] 20 mg PO DAILY@0630 #30 capsule. 11/26/17 [Rx] 3 Allergy/AdvReac Type Severity Reaction Status Date / Time duloxetine [From Cymbalta] Allergy Itching Verified 11/16/17 12:46 Metaxalone [From Skelaxin] Allergy Itching Verified 11/16/17 12:46 valdecoxib [From Bextra] Allergy Itching Verified 11/16/17 12:46 bupropion [From Wellbutrin] AdvReac See Verified 11/16/17 12:46 Comments meperidine [From Demerol] AdvReac Nausea Verified 11/16/17 12:46 pentazocine [From Talwin] AdvReac See Verified 11/16/17 12:46 Comments eggs AdvReac Abdominal Uncoded 11/16/17 12:46 Pain Review of systems: 10 point review of systems done, negative other for what is mentioned in the history of present illness. Exam - Constitutional Vitals: Temp Pulse Resp BP Pulse Ox 97.7 F 76 16 128/76 98 11/26/17 10:38 11/26/17 10:38 11/26/17 11:14 11/26/17 10:38 11/26/17 11:14 General appearance: no acute distress, no febrile - Head Head exam: Present: atraumatic, normocephalic - Neck Neck exam: Present: full ROM. Absent: meningismus - Respiratory Additional comments: Decreased breath sounds universally was some expiratory wheezing. No rhonchi or rales. - Cardiovascular Cardiovascular exam: Present: irregular rhythm, +S1, +S2. Absent: RRR, systolic murmur - GI/Abdominal GI/Abdominal exam: Present: normal bowel sounds, soft. Absent: tenderness Additional comments: Large ventral hernia noted - Extremities Exam Extremities exam: Present: full ROM, normal inspection. Absent: pedal edema - Neurological Exam Neurological exam: Present: alert, oriented X3. Absent: speech deficit - Psychiatric Psychiatric exam: Present: normal affect, normal mood - Skin Skin exam: Present: normal color. Absent: rash Infectious Disease CN: Results - Labs CBC & Chem 7: 11/26/17 04:09 11/26/17 04:09 Serology: Serology 11/22/17 Range/Units 17:05 Stool Occult Blood Positive A (Negative) - VTE Documentation of Mechanical Device: Intermittent pneumatic compression device Consult Discharge Plan - Plan Referrals: Dakota Tsai MD [Partnered Physician] - 12/07/17 8:30 am Marleny Robles CNP [Primary Care Provider] - 12/04/17 10:00 am Nirmala Alex MD [Partnered Physician] - (Web request sent on 11/26.) Prescriptions: MOM Conc [MILK OF MAGNESIA conc] 30 ml PO Q48H 15 Days #15 ud.liq Omeprazole [PriLOSEC] 20 mg PO DAILY@30 #30 capsule.
== END 2017-11-26 14:22 | disposition home or self-care (01) | DRG 389 ==
LOC: 3ANU 14:02 → EMEROO 14:02 → 3ANU 17:56
PROVIDERS: ADMIT Internal Medicine; ATTEND Internal Medicine

== ENCOUNTER 2018-01-05 08:37 | Inpatient (IN) ==
[2018-01-05] MEDS ORDERED: Albuterol 2.5 MG/3 ML NEBULIZER ONE (08:40)
[2018-01-05] MEDS ORDERED: Furosemide 80 MG in 0.9 % Sodium Chloride 50 ML IVPB ONE (08:41)
--- NOTE | 2018-01-05 08:47 | Emergency Department Note ---
Disposition Clinical Impression: CHF (congestive heart failure), Elevated troponin, Pulmonary edema, Respiratory distress Disposition: Admitted As Inpatient Condition: Fair General Adult HPI - General Stated complaint: WILY Time Seen by Provider: 01/05/18 08:40 - Related Data Home Medications Medication Instructions Recorded Confirmed Hydroxychloroquine [Plaquenuil] 200 mg PO BID 04/20/15 01/05/18 Levothyroxine [Synthroid] 37.5 mcg PO 0630 04/20/15 01/05/18 Potassium Chloride 10 meq PO DAILY 04/20/15 01/05/18 Sertraline [Zoloft] 200 mg PO DAILY 04/20/15 01/05/18 Tizanidine HCl [Zanaflex] 4 mg PO TID PRN 04/20/15 01/05/18 Albuterol Sulfate [Proair Hfa] 2 puff IH Q4H PRN 06/10/15 01/05/18 Ascorbic Acid [Vitamin C] 250 mg PO DAILY 06/10/15 01/05/18 Calcium Carbonate/Vitamin D3 1 each PO BID 06/10/15 01/05/18 [Calcium 600 + Vit D Softgel] Cholecalciferol (D-3) [Vitamin D] 2,000 unit PO BID 06/10/15 01/05/18 Cyanocobalamin (Vitamin B-12) 2,500 mcg SL DAILY 06/10/15 01/05/18 [Vitamin B-12] Nitroglycerin [Nitrostat] 0.4 mg SL Q5M PRN 06/10/15 01/05/18 [place]-3 Fatty Acids [Fish Oil] 1,000 mg PO BID 06/10/15 01/05/18 Rivaroxaban [Xarelto] 20 mg PO DAILY 06/10/15 01/05/18 Acetaminophen [Tylenol] 325 mg PO Q6HR PRN 03/28/17 01/05/18 Budesonide/Formoterol 160/4.5 2 puff IH BIDR 03/28/17 01/05/18 [Symbicort 160/4.5] Lidocaine Patch [Lidoderm 5% patch] 2 each TP DAILY 03/28/17 01/05/18 Simethicone [Gas Relief] 125 mg PO QID PRN 03/28/17 01/05/18 Tiotropium [Spiriva] 1 inh IH DAILY 03/28/17 01/05/18 Vitamin B Complex [B Complex] 1 each PO DAILY 03/28/17 01/05/18 guaiFENesin [Guaifenesin] 600 mg PO DAILY PRN 03/28/17 01/05/18 Metoprolol XL (24 HR) Succ [Toprol 100 mg PO DAILY 06/12/17 01/05/18 Xl] Pantoprazole Sodium [Protonix] 20 mg PO DAILY 12/07/17 01/05/18 Polyethylene Glycol 3350 [MiraLAX] 17 gm PO Q48H 12/07/17 01/05/18 Furosemide [Lasix] 80 mg PO DAILY 01/05/18 01/05/18 Previous Rx's Medication Instructions Recorded Aspirin 81 mg PO DAILY #30 tab.chew 04/28/15 Atorvastatin [Lipitor] 40 mg PO HS 30 Days tablet 04/28/15 Lidocaine/Prilocaine CREAM [Emla] 5 gm TP ONCE #1 tube 04/06/17 Ondansetron [Zofran] 8 mg PO Q8HR PRN #90 tablet 09/07/17 Magic Mouthwash [Magic Mouthwash 10 ml PO QID PRN #240 ml 10/19/17 BLM] Dexamethasone [Decadron] 4 mg PO BID #36 tab 11/16/17 Prochlorperazine Maleate 10 mg PO Q8HR PRN #90 tablet 11/16/17 [Compazine] MOM Conc [MILK OF MAGNESIA conc] 30 ml PO Q48H 15 Days #15 ud.liq 11/26/17 Tramadol HCl [Ultram] 50 mg PO TID PRN 30 Days #90 tab 12/07/17 Zolpidem [Ambien] 5 mg PO HS PRN 30 Days #30 tablet 12/07/17 Allergies Allergy/AdvReac Type Severity Reaction Status Date / Time duloxetine [From Cymbalta] Allergy Itching Verified 12/28/17 08:35 Metaxalone [From Skelaxin] Allergy Itching Verified 12/28/17 08:35 valdecoxib [From Bextra] Allergy Itching Verified 12/28/17 08:35 bupropion [From Wellbutrin] AdvReac See Verified 12/28/17 08:35 Comments meperidine [From Demerol] AdvReac Nausea Verified 12/28/17 08:35 pentazocine [From Talwin] AdvReac See Verified 12/28/17 08:35 Comments eggs AdvReac Abdominal Uncoded 12/28/17 08:35 Pain Past Medical History - Past Medical History Medical history: Reports: arthritis, asthma, atrial fibrillation, cancer, CHF, COPD, DVT, hypertension, kidney stones, myocardial infarction, peripheral artery disease, RA, thyroid disease, other Surgical history: Reports: angioplasty/stent, appendectomy, breast surgery, c- section, cholecystectomy, herniorrhaphy, orthopedic, other, other Psychiatric history: Reports: depression - Social History Smoking Status: Former smoker Smokeless Tobacco Status: No Alcohol use: Reports: none Drug use: Reports: none Course Vital Signs Temperature 96.7 F L 01/05/18 08:38 Pulse Rate 132 01/05/18 08:38 Respiratory Rate 45 01/05/18 08:38 Blood Pressure 164/117 01/05/18 08:38 O2 Sat by Pulse Oximetry 94 01/05/18 08:38 Temperature 96.7 F L 01/05/18 08:38 Pulse Rate 96 01/05/18 16:45 Respiratory Rate 22 01/05/18 16:45 Blood Pressure 141/72 01/05/18 16:45 O2 Sat by Pulse Oximetry 96 01/05/18 16:45 Oxygen Delivery Oxygen Delivery Bipap Medical Decision Making - Lab Data Result diagrams: 01/05/18 08:54 01/05/18 08:54 Lab Results 01/05/18 01/05/18 01/05/18 Range/Units 08:50 08:52 08:54 WBC 18.5 H (4.3-11.1) K/mcL RBC 3.89 (3.82-4.97) M/mcL Hgb 9.1 L (11.5-15.4) g/dL Hct 30.1 L (35.3-44.9) % MCV 77.4 L (83.0-100.0) fL MCH 23.4 L (28.0-33.3) pg MCHC 30.2 L (31.6-35.5) g/dL RDW 23.4 H (11.5-14.5) % Plt Count 454 H (140-400) K/mcL MPV 10.1 (9.4-12.4) fL Immature Gran % 0.9 (0-4) % Seg Neutrophils % 61.3 % Lymphocytes % 25.5 % Monocytes % 7.9 % Eosinophils % 4.0 % Basophils % 0.4 % Neutrophils # 11.3 H (1.6-8.9) K/mcL Lymphocytes # 4.7 H (0.6-4.6) K/mcL Monocytes # 1.5 H (0.0-1.3) K/mcL Eosinophils # 0.7 H (0.0-0.6) K/mcL Basophils # 0.1 (0.0-0.2) K/mcL Nucleated RBCs/100 WBC 0.1 H (0) /100 WBC Platelet Estimate Normal (Normal) Polychromasia 1+ A (Not Present) Hypochromasia Present A (Not Present) Anisocytosis 1+ A (Not Present) PT (9.4-12.1) Seconds INR Sample Site R Radial ABG pH 7.28 L (7.32-7.45) pH Units ABG pCO2 49 H (35-45) mmHg ABG pO2 73 L (85-104) mmHg ABG HCO3 23 (21-27) mEq/L ABG Total CO2 24 (20-26) mEq/L ABG O2 Saturation 92 L (95-98) % ABG Base Excess -4 L (-2 to 3) mEq/L Derek Test N/A O2 Delivery Device BiPAP Blood Gas Modality NIV Inspired O2 100.0 (1-15=lpm [id number]=%) Sodium (136-145) mEq/L Potassium (3.5-5.1) mEq/L Chloride (98-107) mEq/L Carbon Dioxide (23-29) mEq/L BUN (8-23) mg/dL Creatinine (0.60-1.20) mg/dL Est GFR ( Amer) (> 60) Est GFR (Non-Af Amer) (> 60) BUN/Creatinine Ratio (6-26) Glucose (70-105) mg/dL POC Glucose 248 H (70-99) mg/dL Calculated Osmolality (280-300) Lactic Acid (0.5-2.2) mmol/L Calcium (8.6-10.3) mg/dL Magnesium (1.6-2.6) mg/dL Total Bilirubin (0.3-1.0) mg/dL AST (13-39) Units/L ALT (7-52) Units/L Alkaline Phosphatase (34-104) Units/L Troponin I (< 0.04) ng/mL B-Natriuretic Peptide (Less than 100) pg/mL Serum Total Protein (6.4-8.9) g/dL Albumin (3.5-5.7) g/dL Globulin (2.4-3.5) g/dL Albumin/Globulin Ratio (1.1-2.2) 01/05/18 01/05/18 01/05/18 Range/Units 08:54 08:54 08:54 WBC (4.3-11.1) K/mcL RBC (3.82-4.97) M/mcL Hgb (11.5-15.4) g/dL Hct (35.3-44.9) % MCV (83.0-100.0) fL MCH (28.0-33.3) pg MCHC (31.6-35.5) g/dL RDW (11.5-14.5) % Plt Count (140-400) K/mcL MPV (9.4-12.4) fL Immature Gran % (0-4) % Seg Neutrophils % % Lymphocytes % % Monocytes % % Eosinophils % % Basophils % % Neutrophils # (1.6-8.9) K/mcL Lymphocytes # (0.6-4.6) K/mcL Monocytes # (0.0-1.3) K/mcL Eosinophils # (0.0-0.6) K/mcL Basophils # (0.0-0.2) K/mcL Nucleated RBCs/100 WBC (0) /100 WBC Platelet Estimate (Normal) Polychromasia (Not Present) Hypochromasia (Not Present) Anisocytosis (Not Present) PT 12.6 H (9.4-12.1) Seconds INR 1.1 Sample Site ABG pH (7.32-7.45) pH Units ABG pCO2 (35-45) mmHg ABG pO2 (85-104) mmHg ABG HCO3 (21-27) mEq/L ABG Total CO2 (20-26) mEq/L ABG O2 Saturation (95-98) % ABG Base Excess (-2 to 3) mEq/L Derek Test O2 Delivery Device Blood Gas Modality Inspired O2 (1-15=lpm [id number]=%) Sodium 128 L (136-145) mEq/L Potassium 3.4 L (3.5-5.1) mEq/L Chloride 94 L (98-107) mEq/L Carbon Dioxide 21 L (23-29) mEq/L BUN 13 (8-23) mg/dL Creatinine 0.50 L (0.60-1.20) mg/dL Est GFR ( Amer) > 60 (> 60) Est GFR (Non-Af Amer) > 60 (> 60) BUN/Creatinine Ratio 26 (6-26) Glucose 238 H (70-105) mg/dL POC Glucose (70-99) mg/dL Calculated Osmolality 274 L (280-300) Lactic Acid (0.5-2.2) mmol/L Calcium 9.5 (8.6-10.3) mg/dL Magnesium 1.7 (1.6-2.6) mg/dL Total Bilirubin 1.1 H (0.3-1.0) mg/dL AST 141 H (13-39) Units/L ALT 128 H (7-52) Units/L Alkaline Phosphatase 850 H (34-104) Units/L Troponin I 0.11 H* (< 0.04) ng/mL B-Natriuretic Peptide 944 H (Less than 100) pg/mL Serum Total Protein 7.0 (6.4-8.9) g/dL Albumin 3.4 L (3.5-5.7) g/dL Globulin 3.6 H (2.4-3.5) g/dL Albumin/Globulin Ratio 0.9 L (1.1-2.2) 01/05/18 Range/Units 08:54 WBC (4.3-11.1) K/mcL RBC (3.82-4.97) M/mcL Hgb (11.5-15.4) g/dL Hct (35.3-44.9) % MCV (83.0-100.0) fL MCH (28.0-33.3) pg MCHC (31.6-35.5) g/dL RDW (11.5-14.5) % Plt Count (140-400) K/mcL MPV (9.4-12.4) fL Immature Gran % (0-4) % Seg Neutrophils % % Lymphocytes % % Monocytes % % Eosinophils % % Basophils % % Neutrophils # (1.6-8.9) K/mcL Lymphocytes # (0.6-4.6) K/mcL Monocytes # (0.0-1.3) K/mcL Eosinophils # (0.0-0.6) K/mcL Basophils # (0.0-0.2) K/mcL Nucleated RBCs/100 WBC (0) /100 WBC Platelet Estimate (Normal) Polychromasia (Not Present) Hypochromasia (Not Present) Anisocytosis (Not Present) PT (9.4-12.1) Seconds INR Sample Site ABG pH (7.32-7.45) pH Units ABG pCO2 (35-45) mmHg ABG pO2 (85-104) mmHg ABG HCO3 (21-27) mEq/L ABG Total CO2 (20-26) mEq/L ABG O2 Saturation (95-98) % ABG Base Excess (-2 to 3) mEq/L Derek Test O2 Delivery Device Blood Gas Modality Inspired O2 (1-15=lpm [id number]=%) Sodium (136-145) mEq/L Potassium (3.5-5.1) mEq/L Chloride (98-107) mEq/L Carbon Dioxide (23-29) mEq/L BUN (8-23) mg/dL Creatinine (0.60-1.20) mg/dL Est GFR ( Amer) (> 60) Est GFR (Non-Af Amer) (> 60) BUN/Creatinine Ratio (6-26) Glucose (70-105) mg/dL POC Glucose (70-99) mg/dL Calculated Osmolality (280-300) Lactic Acid 3.6 H (0.5-2.2) mmol/L Calcium (8.6-10.3) mg/dL Magnesium (1.6-2.6) mg/dL Total Bilirubin (0.3-1.0) mg/dL AST (13-39) Units/L ALT (7-52) Units/L Alkaline Phosphatase (34-104) Units/L Troponin I (< 0.04) ng/mL B-Natriuretic Peptide (Less than 100) pg/mL Serum Total Protein (6.4-8.9) g/dL Albumin (3.5-5.7) g/dL Globulin (2.4-3.5) g/dL Albumin/Globulin Ratio (1.1-2.2) Critical Care Time Critical Care Time: Yes Total Critical Care Time: 45 Attestation: The high probability of a clinically significant, sudden or life threatening deterioration of the [] system(s) required my full and direct attention, intervention and personal management. The aggregate critical care time was [] minutes. This time is in addition to time spent performing reported procedures but includes the following: [] Data Review and interpretation [] Patient assessment and monitoring of vital signs [] Documentation [] Medication orders and management Attestation Statement - Attestation Attestation: I examined this patient and my medical decision-making was reviewed with the Resident Physician. I agree with the documented findings, disposition and treatment plan as described except to the extent set forth below. [id number] time provided Patient arrives by EMS complaining of dyspnea. She is extremely dyspneic, tachypneic, labored breathing upon arrival. She speaks in one word sentences. BiPAP therapy initiated.
[2018-01-05] MEDS: Nitroglycerin 25 MG/250 ML INFUS..BTL IVC SCH (08:50)
[2018-01-05] MEDS ORDERED: Isovue-370 500 ML INFUS..BTL IV ONE (08:52)
[2018-01-05 08:54] LABS: ABG Base Excess -4 mEq/L (-2 to 3); ABG HCO3 23 mEq/L (21-27); ABG Oxygen Saturation 92 % (95-98); ABG PCO2 49 mmHg (35-45); ABG PH 7.28 pH Units (7.32-7.45); ABG PO2 73 mmHg (85-104); ABG TCO2 24 mEq/L (20-26); Blood Gas Modality NIV
--- NOTE | 2018-01-05 08:57 | Emergency Department Note ---
Disposition Clinical Impression: Elevated troponin, Respiratory distress CHF (congestive heart failure) Qualifiers: Heart failure type: unspecified Heart failure chronicity: acute on chronic Qualified Code(s): I50.9 - Heart failure, unspecified Pulmonary edema Qualifiers: Chronicity: acute Qualified Code(s): J81.0 - Acute pulmonary edema Disposition: Admitted As Inpatient Condition: Fair Referrals: Marleny Robles, [facility] [employer] [Primary Care Provider] - Forms: ED Satisfaction Letter General Adult HPI - General Chief complaint: ED Shortness of Breath/Dyspnea Stated complaint: WILY Time Seen by Provider: 01/05/18 08:40 Source: EMS Mode of arrival: EMS Limitations: other Nursing Notes Reviewed: Yes Vital Signs Reviewed: Yes - History of Present Illness HPI Narrative: 67-year-old female with complex past medical history including COPD, CHF presenting to the emergency department with chief complaint of shortness of breath. Patient currently being treated for metastatic lung cancer. Patient poor historian upon first arrival. Majority of the history of present illness obtained by EMS. According to EMS patient woke up this morning was severely short of breath. She tried a nebulizer treatment at home with minimal to no relief. EMS was called. When EMS arrived to the patient's home her oxygen saturation was in the mid 70s on her home oxygen. Patient had severe increased work of breathing. She was placed on a nonrebreather at 10 L and transferred to our facility. Pain Scale: 0 - Related Data Home Medications Medication Instructions Recorded Confirmed Hydroxychloroquine [Plaquenuil] 200 mg PO BID 04/20/15 01/05/18 Levothyroxine [Synthroid] 37.5 mcg PO 0630 04/20/15 01/05/18 Potassium Chloride 10 meq PO DAILY 04/20/15 01/05/18 Sertraline [Zoloft] 200 mg PO DAILY 04/20/15 01/05/18 Tizanidine HCl [Zanaflex] 4 mg PO TID PRN 04/20/15 01/05/18 Albuterol Sulfate [Proair Hfa] 2 puff IH Q4H PRN 06/10/15 01/05/18 Ascorbic Acid [Vitamin C] 250 mg PO DAILY 06/10/15 01/05/18 Calcium Carbonate/Vitamin D3 1 each PO BID 06/10/15 01/05/18 [Calcium 600 + Vit D Softgel] Cholecalciferol (D-3) [Vitamin D] 2,000 unit PO BID 06/10/15 01/05/18 Cyanocobalamin (Vitamin B-12) 2,500 mcg SL DAILY 06/10/15 01/05/18 [Vitamin B-12] Nitroglycerin [Nitrostat] 0.4 mg SL Q5M PRN 06/10/15 01/05/18 [place]-3 Fatty Acids [Fish Oil] 1,000 mg PO BID 06/10/15 01/05/18 Rivaroxaban [Xarelto] 20 mg PO DAILY 06/10/15 01/05/18 Acetaminophen [Tylenol] 325 mg PO Q6HR PRN 03/28/17 01/05/18 Budesonide/Formoterol 160/4.5 2 puff IH BIDR 03/28/17 01/05/18 [Symbicort 160/4.5] Lidocaine Patch [Lidoderm 5% patch] 2 each TP DAILY 03/28/17 01/05/18 Simethicone [Gas Relief] 125 mg PO QID PRN 03/28/17 01/05/18 Tiotropium [Spiriva] 1 inh IH DAILY 03/28/17 01/05/18 Vitamin B Complex [B Complex] 1 each PO DAILY 03/28/17 01/05/18 guaiFENesin [Guaifenesin] 600 mg PO DAILY PRN 03/28/17 01/05/18 Metoprolol XL (24 HR) Succ [Toprol 100 mg PO DAILY 06/12/17 01/05/18 Xl] Pantoprazole Sodium [Protonix] 20 mg PO DAILY 12/07/17 01/05/18 Polyethylene Glycol 3350 [MiraLAX] 17 gm PO Q48H 12/07/17 01/05/18 Furosemide [Lasix] 80 mg PO DAILY 01/05/18 01/05/18 Previous Rx's Medication Instructions Recorded Aspirin 81 mg PO DAILY #30 tab.chew 04/28/15 Atorvastatin [Lipitor] 40 mg PO HS 30 Days tablet 04/28/15 Lidocaine/Prilocaine CREAM [Emla] 5 gm TP ONCE #1 tube 04/06/17 Ondansetron [Zofran] 8 mg PO Q8HR PRN #90 tablet 09/07/17 Magic Mouthwash [Magic Mouthwash 10 ml PO QID PRN #240 ml 10/19/17 BLM] Dexamethasone [Decadron] 4 mg PO BID #36 tab 11/16/17 Prochlorperazine Maleate 10 mg PO Q8HR PRN #90 tablet 11/16/17 [Compazine] MOM Conc [MILK OF MAGNESIA conc] 30 ml PO Q48H 15 Days #15 ud.liq 11/26/17 Tramadol HCl [Ultram] 50 mg PO TID PRN 30 Days #90 tab 12/07/17 Zolpidem [Ambien] 5 mg PO HS PRN 30 Days #30 tablet 12/07/17 Allergies Allergy/AdvReac Type Severity Reaction Status Date / Time duloxetine [From Cymbalta] Allergy Itching Verified 12/28/17 08:35 Metaxalone [From Skelaxin] Allergy Itching Verified 12/28/17 08:35 valdecoxib [From Bextra] Allergy Itching Verified 12/28/17 08:35 bupropion [From Wellbutrin] AdvReac See Verified 12/28/17 08:35 Comments meperidine [From Demerol] AdvReac Nausea Verified 12/28/17 08:35 pentazocine [From Talwin] AdvReac See Verified 12/28/17 08:35 Comments eggs AdvReac Abdominal Uncoded 12/28/17 08:35 Pain Limitations: ROS unobtainable due to patients medical condition Past Medical History - Past Medical History Attestation: Yes The following information was validated with the patient. Medical history: Reports: arthritis, asthma, atrial fibrillation, cancer, CHF, COPD, DVT, hypertension, kidney stones, myocardial infarction, peripheral artery disease, RA, thyroid disease, other Surgical history: Reports: angioplasty/stent, appendectomy, breast surgery, c- section, cholecystectomy, herniorrhaphy, orthopedic, other, other Psychiatric history: Reports: depression - Social History Smoking Status: Former smoker Smokeless Tobacco Status: No Alcohol use: Reports: none Drug use: Reports: none Physical Exam - General Limitations: other General appearance: alert, in distress (Respiratory) - Head Head exam: atraumatic, normocephalic, normal inspection - Eye Eye exam: Present: normal appearance. Absent: scleral icterus, conjunctival injection - ENT ENT exam: mucous membranes dry - Chest Chest inspection: Present: normal inspection, symmetric chest wall rise. Absent : tenderness, rash - Respiratory Respiratory exam: Present: other (Coarse breath sounds throughout) - Cardiovascular Cardiovascular exam: Present: normal rhythm, tachycardia, normal heart sounds - Abdominal Exam Abdominal exam: Present: other (Hernia noted on the lower anterior abdomen). Absent: distention, guarding, rebound - Extremities Exam Extremities exam: Present: full ROM - Neurological Exam Neurological exam: Present: alert - Skin Skin exam: Present: diaphoresis Course Course Narrative: 67-year-old female presenting for shortness of breath. When patient arrived she was on 10 L nonrebreather with oxygen saturation approximately 90%. Patient coarse breath sounds throughout. Physical exam shows nonfocal neurological exam. Patient tachycardic and hypertensive. Patient quickly transitioned to BiPAP. Patient placed on nitro drip at 40 that was titrated down to 20 once patient became more responsive and respiratory status became more stable. Broad labs were taken including CBC, CMP, lactic, blood cultures. Laboratory analysis shows leukocytosis, anemia, elevated troponin at 0.11. Patient has denied any chest pains at this time. EKG unchanged from previous. Patient provided with aspirin. Patient hyponatremic but this is baseline. Otherwise laboratory analysis unchanged from her baseline. Patient mentating significantly better after being on BiPAP. CTA of the chest shows no pulmonary embolus but concern for possible atypical pneumonia. We will add Levaquin at this time. I spoke with family members at bedside who agree with the plan and admission. Patient afebrile and tachycardia has resolved with BiPAP. At this time will plan to admit the patient for CHF exacerbation, respiratory distress, possible atypical pneumonia. Patient is alert and oriented 3 in the room at this time. Family members at bedside. Patient and family agree with this plan. I spoke with the hospitalist on-call who agrees to accept the patient at this time. Vital Signs Temperature 96.7 F L 01/05/18 08:38 Pulse Rate 132 01/05/18 08:38 Respiratory Rate 45 01/05/18 08:38 Blood Pressure 164/117 01/05/18 08:38 O2 Sat by Pulse Oximetry 94 01/05/18 08:38 Temperature 96.7 F L 01/05/18 08:38 Pulse Rate 101 01/05/18 10:30 Respiratory Rate 25 01/05/18 10:30 Blood Pressure 113/62 01/05/18 10:30 O2 Sat by Pulse Oximetry 100 01/05/18 10:30 Oxygen Delivery Oxygen Delivery Bipap Medical Decision Making - Lab Data Result diagrams: 01/05/18 08:54 01/05/18 08:54 Lab Results 01/05/18 01/05/18 01/05/18 Range/Units 08:50 08:52 08:54 WBC 18.5 H (4.3-11.1) K/mcL RBC 3.89 (3.82-4.97) M/mcL Hgb 9.1 L (11.5-15.4) g/dL Hct 30.1 L (35.3-44.9) % MCV 77.4 L (83.0-100.0) fL MCH 23.4 L (28.0-33.3) pg MCHC 30.2 L (31.6-35.5) g/dL RDW 23.4 H (11.5-14.5) % Plt Count 454 H (140-400) K/mcL MPV 10.1 (9.4-12.4) fL Immature Gran % 0.9 (0-4) % Seg Neutrophils % 61.3 % Lymphocytes % 25.5 % Monocytes % 7.9 % Eosinophils % 4.0 % Basophils % 0.4 % Neutrophils # 11.3 H (1.6-8.9) K/mcL Lymphocytes # 4.7 H (0.6-4.6) K/mcL Monocytes # 1.5 H (0.0-1.3) K/mcL Eosinophils # 0.7 H (0.0-0.6) K/mcL Basophils # 0.1 (0.0-0.2) K/mcL Nucleated RBCs/100 WBC 0.1 H (0) /100 WBC Platelet Estimate Normal (Normal) Polychromasia 1+ A (Not Present) Hypochromasia Present A (Not Present) Anisocytosis 1+ A (Not Present) PT (9.4-12.1) Seconds INR Sample Site R Radial ABG pH 7.28 L (7.32-7.45) pH Units ABG pCO2 49 H (35-45) mmHg ABG pO2 73 L (85-104) mmHg ABG HCO3 23 (21-27) mEq/L ABG Total CO2 24 (20-26) mEq/L ABG O2 Saturation 92 L (95-98) % ABG Base Excess -4 L (-2 to 3) mEq/L Derek Test N/A O2 Delivery Device BiPAP Blood Gas Modality NIV Inspired O2 100.0 (1-15=lpm [id number]=%) Sodium (136-145) mEq/L Potassium (3.5-5.1) mEq/L Chloride (98-107) mEq/L Carbon Dioxide (23-29) mEq/L BUN (8-23) mg/dL Creatinine (0.60-1.20) mg/dL Est GFR ( Amer) (> 60) Est GFR (Non-Af Amer) (> 60) BUN/Creatinine Ratio (6-26) Glucose (70-105) mg/dL POC Glucose 248 H (70-99) mg/dL Calculated Osmolality (280-300) Lactic Acid (0.5-2.2) mmol/L Calcium (8.6-10.3) mg/dL Magnesium (1.6-2.6) mg/dL Total Bilirubin (0.3-1.0) mg/dL AST (13-39) Units/L ALT (7-52) Units/L Alkaline Phosphatase (34-104) Units/L Troponin I (< 0.04) ng/mL B-Natriuretic Peptide (Less than 100) pg/mL Serum Total Protein (6.4-8.9) g/dL Albumin (3.5-5.7) g/dL Globulin (2.4-3.5) g/dL Albumin/Globulin Ratio (1.1-2.2) 01/05/18 01/05/18 01/05/18 Range/Units 08:54 08:54 08:54 WBC (4.3-11.1) K/mcL RBC (3.82-4.97) M/mcL Hgb (11.5-15.4) g/dL Hct (35.3-44.9) % MCV (83.0-100.0) fL MCH (28.0-33.3) pg MCHC (31.6-35.5) g/dL RDW (11.5-14.5) % Plt Count (140-400) K/mcL MPV (9.4-12.4) fL Immature Gran % (0-4) % Seg Neutrophils % % Lymphocytes % % Monocytes % % Eosinophils % % Basophils % % Neutrophils # (1.6-8.9) K/mcL Lymphocytes # (0.6-4.6) K/mcL Monocytes # (0.0-1.3) K/mcL Eosinophils # (0.0-0.6) K/mcL Basophils # (0.0-0.2) K/mcL Nucleated RBCs/100 WBC (0) /100 WBC Platelet Estimate (Normal) Polychromasia (Not Present) Hypochromasia (Not Present) Anisocytosis (Not Present) PT 12.6 H (9.4-12.1) Seconds INR 1.1 Sample Site ABG pH (7.32-7.45) pH Units ABG pCO2 (35-45) mmHg ABG pO2 (85-104) mmHg ABG HCO3 (21-27) mEq/L ABG Total CO2 (20-26) mEq/L ABG O2 Saturation (95-98) % ABG Base Excess (-2 to 3) mEq/L Derek Test O2 Delivery Device Blood Gas Modality Inspired O2 (1-15=lpm [id number]=%) Sodium 128 L (136-145) mEq/L Potassium 3.4 L (3.5-5.1) mEq/L Chloride 94 L (98-107) mEq/L Carbon Dioxide 21 L (23-29) mEq/L BUN 13 (8-23) mg/dL Creatinine 0.50 L (0.60-1.20) mg/dL Est GFR ( Amer) > 60 (> 60) Est GFR (Non-Af Amer) > 60 (> 60) BUN/Creatinine Ratio 26 (6-26) Glucose 238 H (70-105) mg/dL POC Glucose (70-99) mg/dL Calculated Osmolality 274 L (280-300) Lactic Acid (0.5-2.2) mmol/L Calcium 9.5 (8.6-10.3) mg/dL Magnesium 1.7 (1.6-2.6) mg/dL Total Bilirubin 1.1 H (0.3-1.0) mg/dL AST 141 H (13-39) Units/L ALT 128 H (7-52) Units/L Alkaline Phosphatase 850 H (34-104) Units/L Troponin I 0.11 H* (< 0.04) ng/mL B-Natriuretic Peptide 944 H (Less than 100) pg/mL Serum Total Protein 7.0 (6.4-8.9) g/dL Albumin 3.4 L (3.5-5.7) g/dL Globulin 3.6 H (2.4-3.5) g/dL Albumin/Globulin Ratio 0.9 L (1.1-2.2) 01/05/18 Range/Units 08:54 WBC (4.3-11.1) K/mcL RBC (3.82-4.97) M/mcL Hgb (11.5-15.4) g/dL Hct (35.3-44.9) % MCV (83.0-100.0) fL MCH (28.0-33.3) pg MCHC (31.6-35.5) g/dL RDW (11.5-14.5) % Plt Count (140-400) K/mcL MPV (9.4-12.4) fL Immature Gran % (0-4) % Seg Neutrophils % % Lymphocytes % % Monocytes % % Eosinophils % % Basophils % % Neutrophils # (1.6-8.9) K/mcL Lymphocytes # (0.6-4.6) K/mcL Monocytes # (0.0-1.3) K/mcL Eosinophils # (0.0-0.6) K/mcL Basophils # (0.0-0.2) K/mcL Nucleated RBCs/100 WBC (0) /100 WBC Platelet Estimate (Normal) Polychromasia (Not Present) Hypochromasia (Not Present) Anisocytosis (Not Present) PT (9.4-12.1) Seconds INR Sample Site ABG pH (7.32-7.45) pH Units ABG pCO2 (35-45) mmHg ABG pO2 (85-104) mmHg ABG HCO3 (21-27) mEq/L ABG Total CO2 (20-26) mEq/L ABG O2 Saturation (95-98) % ABG Base Excess (-2 to 3) mEq/L Derek Test O2 Delivery Device Blood Gas Modality Inspired O2 (1-15=lpm [id number]=%) Sodium (136-145) mEq/L Potassium (3.5-5.1) mEq/L Chloride (98-107) mEq/L Carbon Dioxide (23-29) mEq/L BUN (8-23) mg/dL Creatinine (0.60-1.20) mg/dL Est GFR ( Amer) (> 60) Est GFR (Non-Af Amer) (> 60) BUN/Creatinine Ratio (6-26) Glucose (70-105) mg/dL POC Glucose (70-99) mg/dL Calculated Osmolality (280-300) Lactic Acid 3.6 H (0.5-2.2) mmol/L Calcium (8.6-10.3) mg/dL Magnesium (1.6-2.6) mg/dL Total Bilirubin (0.3-1.0) mg/dL AST (13-39) Units/L ALT (7-52) Units/L Alkaline Phosphatase (34-104) Units/L Troponin I (< 0.04) ng/mL B-Natriuretic Peptide (Less than 100) pg/mL Serum Total Protein (6.4-8.9) g/dL Albumin (3.5-5.7) g/dL Globulin (2.4-3.5) g/dL Albumin/Globulin Ratio (1.1-2.2) - EKG Data EKG #1 EKG attestation: Yes I reviewed and interpreted this EKG. EKG results narrative: Sinus tachycardia. 120 bpm. FL interval 144, QRS 102, QTC 459. No sign of acute ST segment elevation or ischemia. Compared to previous EKG completed on 11/22/2017 no significant changes noted.
[2018-01-05] MEDS ORDERED: Albuterol 2.5 MG/3 ML NEBULIZER IH ONE (09:07)
[2018-01-05 09:14] LABS: Basophils # 0.1 K/mcL (0.0-0.2); Basophils % 0.4 %; Eosinophils # 0.7 K/mcL (0.0-0.6); Hematocrit 30.1 % (35.3-44.9); Hemoglobin 9.1 g/dL (11.5-15.4); Immature Granulocytes % 0.9 % (0-4); Lymphocytes # 4.7 K/mcL (0.6-4.6); Lymphocytes % 25.5 %; Mean Corpuscular HGB Conc 30.2 g/dL (31.6-35.5); Mean Corpuscular Hemoglobin 23.4 pg (28.0-33.3); Mean Corpuscular Volume 77.4 fL (83.0-100.0); Mean Platelet Volume 10.1 fL (9.4-12.4); Monocytes # 1.5 K/mcL (0.0-1.3); Monocytes % 7.9 %; Neutrophils # 11.3 K/mcL (1.6-8.9); Nucleated Red Blood Cells 0.1 /100 WBC (0); Platelet Count 454 K/mcL (140-400); Red Blood Count 3.89 M/mcL (3.82-4.97); Red Cell Distribution Width 23.4 % (11.5-14.5); Segmented Neutrophils % 61.3 %
[2018-01-05 09:35] LABS: Alanine Aminotransferase 128 Units/L (7-52); Albumin 3.4 g/dL (3.5-5.7); Albumin/Globulin Ratio 0.9 (1.1-2.2); Alkaline Phosphatase 850 Units/L (34-104); Aspartate Amino Transferase 141 Units/L (13-39); BUN/Creatinine Ratio 26 (6-26); Bilirubin,Total 1.1 mg/dL (0.3-1.0); Blood Urea Nitrogen 13 mg/dL (8-23); Calcium 9.5 mg/dL (8.6-10.3); Carbon Dioxide 21 mEq/L (23-29); Chloride 94 mEq/L (98-107); Globulin 3.6 g/dL (2.4-3.5); Glucose 238 mg/dL (70-105); Magnesium 1.7 mg/dL (1.6-2.6); Osmolality,Calculated 274 (280-300); Potassium 3.4 mEq/L (3.5-5.1); Sodium 128 mEq/L (136-145); eGFR For Non-African Americans > 60 (> 60)
[2018-01-05 09:39] LABS: INR 1.1; Prothrombin Time 12.6 Seconds (9.4-12.1)
[2018-01-05 09:46] LABS: Troponin I 0.11 ng/mL (< 0.04)
[2018-01-05] MEDS ORDERED: Aspirin 325 MG TABLET PO STA (09:49)
[2018-01-05 10:05] LABS: Anisocytosis 1+ (Not Present); Hypochromasia Present (Not Present); Platelet Estimate Normal (Normal)
[2018-01-05 10:06] LABS: Polychromasia 1+ (Not Present)
[2018-01-05] MEDS ORDERED: Levofloxacin 500 MG/100 ML 500 MG/100 ML BAG IVPB ONE (11:05)
[2018-01-05] MEDS ORDERED: Naloxone 0.4 MG/ML INJ IVP PRN (11:45)
[2018-01-05] MEDS ORDERED: Magic Mouthwash 10 ML UD Cup PO PRN (11:47)
[2018-01-05] MEDS ORDERED: Acetaminophen 325 MG TABLET PO PRN (11:47)
[2018-01-05] MEDS ORDERED: Ipratropium/Albuterol Neb 3 ML IH PRN (11:52)
[2018-01-05] MEDS ORDERED: Vancomycin 1,750 MG in 0.9 % Sodium Chloride 250 ML IVPB SCH (12:00)
--- NOTE | 2018-01-05 12:52 | Internal Med History&Physical ---
Date of Encounter: 01/05/18 Time of Encounter: 12:50 Internal Medicine - H&P: HPI Chief complaint: Progressively worsening shortness of breath History of present illness: Ms. Manning is a 67 year old female with pmh of stage 4 lung cancer with liver metastases, diastolic CHF, COPD, MT s/p stent presenting with complaints of shortness of breath for a while now acutely getting worse in the last 24hrs. Patient says she was on chemotherapy up till 4 weeks ago. She complains she has been getting short of breath and has had decreased exercise tolerance, as well as some difficulty lying flat. In the last 24hrs she says her shortness of breath became more severe, and when she woke up this morning, she was gasping for air couldn't walk. Her family checked her oxygen sats and it was noted to be 75% on room air. She is not on home oxygen. They therefore called EMS. In ER, she was noted to be hypoxic and hypertensive and started on lasix, nebs, BIPAP and a nitrodrip for hypertensive emergency. She is being admitted for further management Past Med Surg Social Fam HX - Past Medical History Medical history: arthritis, asthma, atrial fibrillation, cancer, CHF, COPD, DVT , hypertension, kidney stones, myocardial infarction, peripheral artery disease , RA, thyroid disease, other Additional medical history: Glomerulonephritis. Pulmonary Nodule. Osteoarthritis. Fibrocistic Breast Disease. Spinal Stenosis. TIA. MT x2. CAD. Cologard positive Psychiatric history: depression - Past Surgical History Surgical History: angioplasty/stent, appendectomy, breast surgery, , cholecystectomy, herniorrhaphy, orthopedic, other, other Additional surgical history: ORIF Right Ankle. Gastric Bypass. Heart stents - Social History Smoking Status: Former smoker Smokeless Tobacco Status: No Alcohol use: none Drug use: none - Family History Brother Living Status: Still Living Hx Family Cancer: Yes (Lung cancer with metastasis to the brain) Sister Living Status: Still Living Hx Family Endocrine Disorder: Yes (Thyroid disease) Daughter Adopted: No Living Status: Still Living Hx Family Neurologic Disorders: Yes (stroke x2) Father Living Status: Hx Family Cardiac Disorders: Yes (hypertension) Mother Adopted: No Family Member Ethnicity: Non- Living Status: Hx Family Cardiac Disorders: Yes (CHF) Hx Family Respiratory Disorders: No Hx Family Cancer: Yes (breast) Hx Family GI Disorders: No Hx Family Endocrine Disorder: Yes (goiter removal) Hx Family Neuromuscular Disorders: No Hx Family Neurologic Disorders: Yes (seizures from meningioma) Hx Family HEENT Disorders: Yes (cataracts) Hx Family Autoimmune Disorders: No Internal Medicine - H&P: Meds Hydroxychloroquine [Plaquenuil] 200 mg PO BID 04/20/15 [History] Levothyroxine [Synthroid] 37.5 mcg PO 0630 04/20/15 [History] Potassium Chloride 10 meq PO DAILY 04/20/15 [History] Sertraline [Zoloft] 200 mg PO DAILY 04/20/15 [History] Tizanidine HCl [Zanaflex] 4 mg PO TID PRN 04/20/15 [History] Aspirin 81 mg PO DAILY #30 tab.chew 04/28/15 [Rx] Atorvastatin [Lipitor] 40 mg PO HS 30 Days tablet 04/28/15 [Rx] Albuterol Sulfate [Proair Hfa] 2 puff IH Q4H PRN 06/10/15 [History] Ascorbic Acid [Vitamin C] 250 mg PO DAILY 06/10/15 [History] Calcium Carbonate/Vitamin D3 [Calcium 600 + Vit D Softgel] 1 each PO BID [History] Cholecalciferol (D-3) [Vitamin D] 2,000 unit PO BID 06/10/15 [History] Cyanocobalamin (Vitamin B-12) [Vitamin B-12] 2,500 mcg SL DAILY 06/10/15 [ History] Nitroglycerin [Nitrostat] 0.4 mg SL Q5M PRN 06/10/15 [History] [place]-3 Fatty Acids [Fish Oil] 1,000 mg PO BID 06/10/15 [History] Rivaroxaban [Xarelto] 20 mg PO DAILY 06/10/15 [History] Acetaminophen [Tylenol] 325 mg PO Q6HR PRN 03/28/17 [History] Budesonide/Formoterol 160/4.5 [Symbicort 160/4.5] 2 puff IH BIDR 03/28/17 [ History] Lidocaine Patch [Lidoderm 5% patch] 2 each TP DAILY 03/28/17 [History] Simethicone [Gas Relief] 125 mg PO QID PRN 03/28/17 [History] Tiotropium [Spiriva] 1 inh IH DAILY 03/28/17 [History] Vitamin B Complex [B Complex] 1 each PO DAILY 03/28/17 [History] guaiFENesin [Guaifenesin] 600 mg PO DAILY PRN 03/28/17 [History] Lidocaine/Prilocaine CREAM [Emla] 5 gm TP ONCE #1 tube 04/06/17 [Rx] Metoprolol XL (24 HR) Succ [Toprol Xl] 100 mg PO DAILY 06/12/17 [History] Ondansetron [Zofran] 8 mg PO Q8HR PRN #90 tablet 09/07/17 [Rx] Magic Mouthwash [Magic Mouthwash BLM] 10 ml PO QID PRN #240 ml 10/19/17 [Rx] Dexamethasone [Decadron] 4 mg PO BID #36 tab 11/16/17 [Rx] Prochlorperazine Maleate [Compazine] 10 mg PO Q8HR PRN #90 tablet 11/16/17 [Rx] MOM Conc [MILK OF MAGNESIA conc] 30 ml PO Q48H 15 Days #15 ud.liq 11/26/17 [Rx] Pantoprazole Sodium [Protonix] 20 mg PO DAILY 12/07/17 [History] Polyethylene Glycol 3350 [MiraLAX] 17 gm PO Q48H 12/07/17 [History] Tramadol HCl [Ultram] 50 mg PO TID PRN 30 Days #90 tab 12/07/17 [Rx] Zolpidem [Ambien] 5 mg PO HS PRN 30 Days #30 tablet 12/07/17 [Rx] Furosemide [Lasix] 80 mg PO DAILY 01/05/18 [History] 3 Allergy/AdvReac Type Severity Reaction Status Date / Time duloxetine [From Cymbalta] Allergy Itching Verified 12/28/17 08:35 Metaxalone [From Skelaxin] Allergy Itching Verified 12/28/17 08:35 valdecoxib [From Bextra] Allergy Itching Verified 12/28/17 08:35 bupropion [From Wellbutrin] AdvReac See Verified 12/28/17 08:35 Comments meperidine [From Demerol] AdvReac Nausea Verified 12/28/17 08:35 pentazocine [From Talwin] AdvReac See Verified 12/28/17 08:35 Comments eggs AdvReac Abdominal Uncoded 12/28/17 08:35 Pain All Systems PM: A 10-system review of systems was performed and is negative for pertinent findings except as documented above in the HPI. - Constitutional Constitutional: lethargy, no chills, no fever(s), no night sweats - EENT Eyes: no change in vision, no discharge, no pain, no photophobia Ears: no ear discharge, no ear pain, no tinnitus Nose, mouth and throat: no dysphagia, no nasal discharge, no neck pain, no sore throat - Cardiovascular Cardiovascular ROS IM: dyspnea, dyspnea on exertion, no chest pain, no diaphoresis, no lightheadedness, no palpitations, no syncope - Respiratory Respiratory: dyspnea, no cough, no wheezing, no excessive phlegm production - Gastrointestinal Gastrointestinal: no abdominal pain, no diarrhea, no hematemesis, no hematochezia, no melena, no nausea, no vomiting - Genitourinary Genitourinary: no change in urinary stream, no dysuria, no flank pain, no hematuria - Musculoskeletal Musculoskeletal ROS IM: no numbness, no tingling - Integumentary Integumentary IM: no rash, no unusual bruising - Neurological Neurological ROS: no confusion, no convulsions, no focal weakness, no numbness, no tingling, no tremor(s) - Hematologic/Lymphatic Hematologic/Lymphatic: no easy bruising - Constitutional Vitals: Temp Pulse Resp BP Pulse Ox 96.7 F L 100 20 126/77 100 01/05/18 08:38 01/05/18 11:44 01/05/18 11:44 01/05/18 11:44 01/05/18 11:44 General appearance: Present: morbidly obese Exam: ON BIPAP. NAD - Head Head exam: Present: atraumatic, normocephalic - Eye Eye exam: Present: PERRL, conjuntiva pink, sclera anicteric Pupils: Present: PERRL - Neck Neck exam general surgery: Present: supple, trachea midline. Absent: lymphadenopathy - Respiratory Respiratory exam: Present: decreased breath sounds. Absent: accessory muscle use, rales, rhonchi, wheezes - Cardiovascular Cardiovascular exam: Present: RRR, +S1, +S2. Absent: diastolic murmur, gallop, rubs, systolic murmur - GI/Abdominal GI/Abdominal exam: Present: normal bowel sounds, soft, no peritoneal signs. Absent: distended, tenderness - Extremities Exam Extremities exam: Present: warm, radial pulses palpable and symmetrical. Absent : calf tenderness, cyanotic, pedal edema - Neurological Exam Neurological exam: Present: CN II-XII intact, oriented X3, no focal deficits. Absent: pronater drift, facial droop, speech deficit - Skin Skin exam: Present: dry, intact Internal Med - H&P Results - Labs CBC & Chem 7: 01/05/18 08:54 01/05/18 08:54 - Assessment and plan (1) Sepsis Current Visit: Yes Status: Acute Assessment and plan: Pt comes in with shortness of breath, leukocytosis and tachycardia. Subjective chills at home. Was recently in the hospital last month. Etiology possibly bacterial HCAP. Will obtain blood cultures, urine strep and legionella antigen Start on antibiotics with vanc and levaquin Qualifiers: Sepsis type: sepsis due to unspecified organism Qualified Code(s): A41.9 - Sepsis, unspecified organism (2) Acute respiratory failure with hypoxia and hypercapnia Current Visit: Yes Status: Acute Assessment and plan: pt has hypoxic respiratory failure likely secondary to acute diastolic CHF vs flash pulmonary edema from hypertensive emergency Started on IV lasix , nitroglycerin drip and BIPAP. Wean off nitroglycerin drip as tolerated. Had some mild CO2 retention with no active wheezes. Continue BIPAP and prn nebs (3) Acute diastolic (congestive) heart failure Current Visit: Yes Status: Acute Assessment and plan: See #2. Acute worsening of chronic diastolic CHF. On IV lasix BID. Monitor ins and outs. Cardiac diet Repeat 2D echo as patient recently completed a course of chemotherapy which may contribute to declining cardiac function (4) Hypertensive emergency Current Visit: Yes Status: Acute Assessment and plan: Pt came in with elevated BP up to 164/117 with shortness of breath and new onset pulmonary edema Started on lasix and nitroglycerin drip with improvement (5) Flash pulmonary edema Current Visit: Yes Status: Acute Assessment and plan: On lasix and nitro drip (6) Pneumonia Current Visit: Yes Status: Acute Assessment and plan: Continue vanc and levaquin. Follow up cultures Qualifiers: Qualified Code(s): J18.9 - Pneumonia, unspecified organism (7) Elevated troponin Current Visit: Yes Status: Acute Assessment and plan: Likely demand. However will trend troponins in light of sudden onset SOB Trended up to 0.28. Cardiology consulted (8) Metastatic lung cancer (metastasis from lung to other site) Current Visit: No Status: Chronic Assessment and plan: Outpatient follow up Qualifiers: Laterality: unspecified laterality Qualified Code(s): C34.90 - Malignant neoplasm of unspecified part of unspecified bronchus or lung (9) Paroxysmal atrial fibrillation Current Visit: No Status: Chronic Assessment and plan: Continue metoprolol and xarelto (10) DVT prophylaxis Current Visit: No Status: Acute Assessment and plan: On xarelto - Time Spent With Patient Total time spent is greater than 50% in coordination of care (as documented) at patient's floor/unit and/or counseling patient:
[2018-01-05] MEDS: *HR* Rivaroxaban 10 MG TABLET PO SCH (17:01)
[2018-01-05] MEDS: Potassium Chloride Elixir 20 MEQ/15 ML UDC PO SCH ×3 (17:01→17:26)
[2018-01-05] MEDS: Aspirin 81 MG TAB.CHEW PO SCH (17:01)
[2018-01-05] MEDS: Furosemide 40 MG/4 ML VIAL IVP SCH (17:02)
[2018-01-05] MEDS: Budesonide/Formoterol 160/4.5 1 PUFF INH IH SCH (20:45)
[2018-01-05] MEDS: Cholecalciferol (D-3) 1,000 UNIT TABLET PO SCH (21:10)
[2018-01-05] MEDS: traMADol 50 MG TABLET PO PRN (22:02)
[2018-01-06] MEDS: tiZANidine 4 MG TABLET PO PRN ×4 (00:54→20:26)
[2018-01-06] MEDS: Levothyroxine 25 MCG TABLET PO SCH (04:41)
[2018-01-06 05:05] LABS: Basophils % 0.3 %; Eosinophils # 0.2 K/mcL (0.0-0.6); Eosinophils % 1.9 %; Hematocrit 22.9 % (35.3-44.9); Immature Granulocytes % 0.4 % (0-4); Lymphocytes # 1.2 K/mcL (0.6-4.6); Lymphocytes % 11.2 %; Mean Corpuscular Hemoglobin 23.1 pg (28.0-33.3); Mean Corpuscular Volume 74.4 fL (83.0-100.0); Mean Platelet Volume 9.8 fL (9.4-12.4); Monocytes % 9.2 %; Neutrophils # 8.2 K/mcL (1.6-8.9); Platelet Count 258 K/mcL (140-400); Red Blood Count 3.08 M/mcL (3.82-4.97); Red Cell Distribution Width 23.1 % (11.5-14.5)
[2018-01-06 05:22] LABS: Hemoglobin 7.1 g/dL (11.5-15.4)
[2018-01-06 05:23] LABS: BUN/Creatinine Ratio 26 (6-26); Blood Urea Nitrogen 10 mg/dL (8-23); Calcium 9.1 mg/dL (8.6-10.3); Carbon Dioxide 25 mEq/L (23-29); Chloride 98 mEq/L (98-107); Glucose 115 mg/dL (70-105); Magnesium 1.6 mg/dL (1.6-2.6); Osmolality,Calculated 274 (280-300); Phosphorous 2.8 mg/dL (2.7-4.5); Potassium 3.5 mEq/L (3.5-5.1); Sodium 132 mEq/L (136-145); eGFR For Non-African Americans > 60 (> 60)
[2018-01-06 05:44] LABS: Anisocytosis 2+ (Not Present); Hypochromasia Present (Not Present); Polychromasia 1+ (Not Present)
[2018-01-06 05:45] LABS: Platelet Estimate Normal (Normal)
[2018-01-06] MEDS: Nitroglycerin 25 MG/250 ML INFUS..BTL IVC SCH (07:00)
[2018-01-06] MEDS: Cholecalciferol (D-3) 1,000 UNIT TABLET PO SCH (08:31)
[2018-01-06] MEDS: Aspirin 81 MG TAB.CHEW PO SCH (08:31)
[2018-01-06] MEDS: *HR* Rivaroxaban 10 MG TABLET PO SCH (08:31)
[2018-01-06] MEDS: Levofloxacin 750 MG/150 ML 750 MG/150 ML BAG IVPB SCH (08:32)
[2018-01-06] MEDS: Furosemide 40 MG/4 ML VIAL IVP SCH ×2 (08:32→15:35)
[2018-01-06] MEDS: Cyanocobalamin (B-12) 1,000 MCG TABLET PO SCH (08:32)
[2018-01-06] MEDS: Metoprolol XL (24 HR) Succ 50 MG TAB.ER.24H PO SCH (08:32)
[2018-01-06] MEDS: traMADol 50 MG TABLET PO PRN ×3 (08:32→20:26)
[2018-01-06] MEDS: Tiotropium 18 MCG inhalation IH SCH (10:44)
[2018-01-06] MEDS: Budesonide/Formoterol 160/4.5 1 PUFF INH IH SCH ×2 (10:44→22:57)
--- NOTE | 2018-01-06 12:27 | Cardiology Consult Note ---
<FarrukhMarylou - Last Filed: 01/06/18 12:48> Date of Encounter: 01/06/18 Time of Encounter: 10:30 Assessment and Plan (1) CHF (congestive heart failure) Current Visit: Yes Status: Acute Per cardiology: -Known diastolic CHF. -MOst recent tte 05/2017 with LVEF 60-65%, indeterminate diastolic function, mild -moderate AR, mild MR, no segmental wall motion abnormalities noted. -ADmitted with worsening shortness of breath. -BNP 900s. -Chest x-ray with pulmonary edema. -Currently on nitro drip and IV lasix. -Reports symptoms much improved. -Dry weight about 87kg, currently 87kg. -Repeat TTE pending. -Agree with IV diuresis. -STrict i/os, fluid restirction, daily weights. -Will continue to monitor. (2) Elevated troponin Current Visit: Yes Status: Acute Per cardiology: -Troponins 0.11, 0.28, 0.17 in the setting of pneumonia, sepsis, CHF, anemia, metastatic lung cancer. -Patient deneis chest pain. -No acute ischemic ECG changes, -12/2015 stress negative for ischemia. -TTE pending. -NSTEMI II in the setting of the above. No cardiac rehab consult warranted. -Further recommendations pending TTE. (3) Paroxysmal atrial fibrillation Current Visit: No Status: Chronic Per cardiology: -Known PAF, currently SR. -ON BB and xarelto for anticoagulation. -[id number] score 6 (age, gender, CAD, CHF, TIA/DVT). Currently on xarelto, however hemoglobin 9.1 admission, now 7.1 -Continue to monito hemoglobin closely. Can consider discontinuation of xarelto , however would icnrease patient's risk of CVA/embolic event. (4) CAD (coronary artery disease) Current Visit: No Status: Chronic Per cardiology: -Known CAD s/p [facility] 03/2015 with 40% mid LAD, 20% mid circumflex, 70% mid RCA with BMS placed. -On asa, statin, BB. -LFTS noted to be elevated. -Discussed and reviewed with , will stop atorvastatin in the setting of LFTS elevated. will start low dose rosuvastatin. Discussion w patient/family: The assessment and plan as outlined above was discussed with the patient who expressed understanding and agreement. All questions were answered. Thank you for involving us in the care of your patient. Please call with any questions. Discussed and reviewed with . History of Present Illness Consult date: 01/05/18 Requesting physician: Jesús Briseno Consult reason: elevated troponin, CHF Chief complaint: shortness of breath History of present illness: Ms. Manning is a 67 year old female with a relevant past medical history of cad s/p PCI, diastolic CHF, PAF on xarelto for anticoagulation, COPD, RA, hypothyroidisim, depression, stage IV metatstatic lung ca who presented to [facility] with complaints of difficulty in breathing. Patient was noted to have Spo2 OF 75 % at home. Patient denies chest pain. Patient does report fatigue. Also states had noticed worsening edema. Patient states she recently told her oncologist that she no longer wanted to undergo chemotherapy. Past Med Surg Social Fam HX - Past Medical History Attestation: Yes The following information was validated with the patient. Source: patient, old records reviewed Medical history: arthritis, asthma, atrial fibrillation, cancer, CHF, COPD, coronary artery disease, DVT, hypertension, kidney stones, myocardial infarction , peripheral artery disease, RA, thyroid disease, other Additional medical history: Glomerulonephritis. Pulmonary Nodule. Osteoarthritis. Fibrocistic Breast Disease. Spinal Stenosis. TIA. [place] x2. CAD. Cologard positive Psychiatric history: depression - Past Surgical History Surgical History: angioplasty/stent, appendectomy, breast surgery, , cholecystectomy, herniorrhaphy, orthopedic, other, other Additional surgical history: ORIF Right Ankle. Gastric Bypass. Heart stents - Social History Smoking Status: Former smoker Smokeless Tobacco Status: No Alcohol use: none Drug use: none - Family History Brother Living Status: Still Living Hx Family Cancer: Yes (Lung cancer with metastasis to the brain) Sister Living Status: Still Living Hx Family Endocrine Disorder: Yes (Thyroid disease) Daughter Adopted: No Living Status: Still Living Hx Family Neurologic Disorders: Yes (stroke x2) Father Living Status: Hx Family Cardiac Disorders: Yes (hypertension) Mother Adopted: No Family Member Ethnicity: Non- Living Status: Hx Family Cardiac Disorders: Yes (CHF) Hx Family Respiratory Disorders: No Hx Family Cancer: Yes (breast) Hx Family GI Disorders: No Hx Family Endocrine Disorder: Yes (goiter removal) Hx Family Neuromuscular Disorders: No Hx Family Neurologic Disorders: Yes (seizures from meningioma) Hx Family HEENT Disorders: Yes (cataracts) Hx Family Autoimmune Disorders: No Medications and Allergies Hydroxychloroquine [Plaquenuil] 200 mg PO BID 04/20/15 [History] Levothyroxine [Synthroid] 37.5 mcg PO 0630 04/20/15 [History] Potassium Chloride 10 meq PO DAILY 04/20/15 [History] Sertraline [Zoloft] 200 mg PO DAILY 04/20/15 [History] Tizanidine HCl [Zanaflex] 4 mg PO TID PRN 04/20/15 [History] Aspirin 81 mg PO DAILY #30 tab.chew 04/28/15 [Rx] Atorvastatin [Lipitor] 40 mg PO HS 30 Days tablet 04/28/15 [Rx] Albuterol Sulfate [Proair Hfa] 2 puff IH Q4H PRN 06/10/15 [History] Ascorbic Acid [Vitamin C] 250 mg PO DAILY 06/10/15 [History] Calcium Carbonate/Vitamin D3 [Calcium 600 + Vit D Softgel] 1 each PO BID [History] Cholecalciferol (D-3) [Vitamin D] 2,000 unit PO BID 06/10/15 [History] Cyanocobalamin (Vitamin B-12) [Vitamin B-12] 2,500 mcg SL DAILY 06/10/15 [ History] Nitroglycerin [Nitrostat] 0.4 mg SL Q5M PRN 06/10/15 [History] [place]-3 Fatty Acids [Fish Oil] 1,000 mg PO BID 06/10/15 [History] Rivaroxaban [Xarelto] 20 mg PO DAILY 06/10/15 [History] Acetaminophen [Tylenol] 325 mg PO Q6HR PRN 03/28/17 [History] Budesonide/Formoterol 160/4.5 [Symbicort 160/4.5] 2 puff IH BIDR 03/28/17 [ History] Lidocaine Patch [Lidoderm 5% patch] 2 each TP DAILY 03/28/17 [History] Simethicone [Gas Relief] 125 mg PO QID PRN 03/28/17 [History] Tiotropium [Spiriva] 1 inh IH DAILY 03/28/17 [History] Vitamin B Complex [B Complex] 1 each PO DAILY 03/28/17 [History] guaiFENesin [Guaifenesin] 600 mg PO DAILY PRN 03/28/17 [History] Lidocaine/Prilocaine CREAM [Emla] 5 gm TP ONCE #1 tube 04/06/17 [Rx] Metoprolol XL (24 HR) Succ [Toprol Xl] 100 mg PO DAILY 06/12/17 [History] Ondansetron [Zofran] 8 mg PO Q8HR PRN #90 tablet 09/07/17 [Rx] Magic Mouthwash [Magic Mouthwash BLM] 10 ml PO QID PRN #240 ml 10/19/17 [Rx] Dexamethasone [Decadron] 4 mg PO BID #36 tab 11/16/17 [Rx] Prochlorperazine Maleate [Compazine] 10 mg PO Q8HR PRN #90 tablet 11/16/17 [Rx] MOM Conc [MILK OF MAGNESIA conc] 30 ml PO Q48H 15 Days #15 ud.liq 11/26/17 [Rx] Pantoprazole Sodium [Protonix] 20 mg PO DAILY 12/07/17 [History] Polyethylene Glycol 3350 [MiraLAX] 17 gm PO Q48H 12/07/17 [History] Tramadol HCl [Ultram] 50 mg PO TID PRN 30 Days #90 tab 12/07/17 [Rx] Zolpidem [Ambien] 5 mg PO HS PRN 30 Days #30 tablet 12/07/17 [Rx] Furosemide [Lasix] 80 mg PO DAILY 01/05/18 [History] 3 Allergy/AdvReac Type Severity Reaction Status Date / Time duloxetine [From Cymbalta] Allergy Itching Verified 12/28/17 08:35 Metaxalone [From Skelaxin] Allergy Itching Verified 12/28/17 08:35 valdecoxib [From Bextra] Allergy Itching Verified 12/28/17 08:35 bupropion [From Wellbutrin] AdvReac See Verified 12/28/17 08:35 Comments meperidine [From Demerol] AdvReac Nausea Verified 12/28/17 08:35 pentazocine [From Talwin] AdvReac See Verified 12/28/17 08:35 Comments eggs AdvReac Abdominal Uncoded 12/28/17 08:35 Pain All Systems Review: The remainder of the systems were reviewed and are negative - Constitutional Constitutional: fatigue - Cardiovascular Cardiovascular: as per HPI, dyspnea at rest, dyspnea on exertion, leg edema Physical Examination Vital Signs, Last 4 Hours Temp Pulse Resp BP Pulse Ox 01/06/18 11:27 97.9 F 93 18 112/65 100 01/06/18 10:44 18 99 01/06/18 08:30 98.5 F 111 18 138/76 97 General: Conversant, No Apparent Distress HEENT: Atraumatic, Normocephaly, Mucus Membranes Moist Neck: No JVD, Normal carotid pulses Cardiac: Reg Rate and Rhythm, Normal S1 and S2, No Murmur Lungs: Other (Lung sounds with crackles noted to bilateral bases. ) Neuro: Alert and responsive, No focal deficits noted Abdomen: Soft, Non-Tender Skin: No rashes noted on visualized skin Musculoskeletal: No Chest Wall Tenderness Extremities: No Clubbing, No Cyanosis, Normal Pulses, Other (Mild bilateral pedal edema, non-pitting. ) Results 01/06/18 04:50 01/06/18 04:50 Lab Results Active Medications Acetaminophen (Tylenol) 325 mg PO Q6HR PRN PRN Reason: Pain Stop: 07/07/18 11:48 Last Admin: 01/06/18 00:54 Dose: 325 mg Albuterol/Ipratropium (Duoneb) 3 ml IH [id number] PRN PRN Reason: Dyspnea Stop: 07/07/18 11:53 Aspirin (Aspirin) 81 mg PO DAILY [facility] Stop: 07/07/18 12:01 Last Admin: 01/06/18 08:31 Dose: 81 mg Atorvastatin Calcium (Lipitor) 40 mg PO HS [facility] Stop: 07/07/18 21:01 Last Admin: 01/05/18 21:10 Dose: 40 mg Budesonide/Formoterol Fumarate (Symbicort) 2 puff IH BIDR ESTHER PRN Reason: Protocol Stop: 07/07/18 22:01 Last Admin: 01/06/18 10:44 Dose: 2 puff Cyanocobalamin (Vitamin B12) 2,500 mcg PO DAILY ESTHER Stop: 07/08/18 09:01 Last Admin: 01/06/18 08:32 Dose: 2,500 mcg Furosemide (Lasix) 40 mg IVP BIDDIURETIC ESTHER Stop: 07/07/18 17:01 Last Admin: 01/06/18 08:32 Dose: 40 mg Guaifenesin (Mucinex) 600 mg PO DAILY PRN PRN Reason: Cough Last Admin: 01/06/18 08:31 Dose: 600 mg Hydroxychloroquine Sulfate (Plaquenuil) 200 mg PO BID ESTHER Stop: 07/07/18 21:01 Last Admin: 01/06/18 08:32 Dose: 200 mg Nitroglycerin (Nitroglycerin Premix 25 Mg/250 Ml) 25 mg in 250 mls @ 24 mls/hr IVC .[id number] ESTHER; 40 MCG/MIN PRN Reason: Protocol Stop: 07/07/18 08:46 Last Admin: 01/06/18 07:00 Dose: Not Given Levofloxacin/Dextrose (Levaquin Premix 750mg/150 Ml) 750 mg in 150 mls @ 100 mls/hr IVPB DAILY ESTHER PRN Reason: Protocol Stop: 07/08/18 09:01 Last Infusion: 01/06/18 10:00 Dose: Infused Vancomycin HCl 1,750 mg/ (Sodium Chloride) 500 mls @ 333.3 mls/hr IVPB Q12H ESTHER Stop: 07/08/18 04:01 Last Infusion: 01/06/18 06:10 Dose: Infused Levothyroxine Sodium (Synthroid) 37.5 mcg PO 0630 [facility] Stop: 07/08/18 06:31 Last Admin: 01/06/18 04:41 Dose: 37.5 mcg Metoprolol Succinate (Toprol Xl) 100 mg PO DAILY [facility] Stop: 07/08/18 09:01 Last Admin: 01/06/18 08:32 Dose: 100 mg Multi-Ingredient Mouthwash/Gargle (Magic Mouthwash) 10 ml PO QID PRN PRN Reason: Mouth Irritation Naloxone HCl (Narcan) 0.4 mg IVP Q2MIN PRN PRN Reason: SEE COMMENTS Stop: 07/07/18 11:46 Omeprazole (Prilosec) 20 mg PO DAILY [facility] Stop: 07/08/18 09:01 Last Admin: 01/06/18 08:31 Dose: 20 mg Polyethylene Glycol (Miralax) 17 gm PO Q48H ESTHER Stop: 07/07/18 12:01 Last Admin: 01/05/18 17:02 Dose: 17 gm Rivaroxaban (Xarelto) 20 mg PO DAILY [facility] Stop: 07/07/18 12:01 Last Admin: 01/06/18 08:31 Dose: 20 mg Sertraline HCl (Zoloft) 200 mg PO DAILY [facility] Stop: 07/08/18 09:01 Last Admin: 01/06/18 08:31 Dose: 200 mg Tiotropium [place] (Spiriva) 18 mcg IH DAILYR ESTHER Stop: 07/08/18 10:01 Last Admin: 01/06/18 10:44 Dose: 18 mcg Tizanidine HCl (Zanaflex) 4 mg PO TID PRN PRN Reason: Pain Last Admin: 01/06/18 08:32 Dose: 4 mg Tramadol HCl (Ultram) 50 mg PO BID PRN PRN Reason: Pain Stop: 07/07/18 21:27 Last Admin: 01/06/18 08:32 Dose: 50 mg Vitamin D (Vitamin D) 1,000 unit PO DAILY [facility]HER Stop: 07/07/18 21:01 Last Admin: 01/06/18 08:31 Dose: 1,000 unit Zolpidem Tartrate (Ambien) 5 mg PO HS PRN; Protocol PRN Reason: Insomnia Stop: 07/07/18 11:48 Laboratory Tests 01/05/18 01/05/18 01/05/18 08:50 08:54 08:54 WBC 18.5 H Hgb 9.1 L ABG pH 7.28 L Creatinine 0.50 L AST 141 H Troponin I 0.11 H* B-Natriuretic Peptide 01/05/18 01/05/18 01/06/18 08:54 16:02 00:20 WBC Hgb ABG pH Creatinine AST Troponin I 0.28 H* 0.17 H* B-Natriuretic Peptide 944 H 01/06/18 04:50 WBC 10.6 Hgb 7.1 L D ABG pH Creatinine AST Troponin I B-Natriuretic Peptide - Imaging and Cardiology Chest Xray: report reviewed Echo: report reviewed Cardiac cath: report reviewed - EKG Interpretation EKG results cardiology: personally reviewed (ECG with ST, HR 128. Similar to previous ECG), other (Telemetry reviewed with average HR previous 12 hours noted to be 109, ST. PVCs and PACS noted.) Consult Discharge Plan - Plan Referrals: Marleny Robles, [facility] [Primary Care Provider] - <Ever Siddiqi - Last Filed: 01/06/18 16:12> Date of Encounter: 01/06/18 - Attending Attestation Patient was seen and evaluated independently by me. Findings, assessment and plan were discussed at length with patient, questions answered. Agree with nurse practitioner's documentation. Addition as follows, 67 yoCF ho CAD PCI, PAF on A/C, HFpEF, stage IV lung Ca on chemo, COPD. P/w hypoxemia, dyspnea, edema with elevated BP. Mild elevated troponin w/o ischemic ECG. Also noticed Hb 7s from baseline 8s. Feeling better after lasix and NTG drip. BP improved, bibasilar fine crackles, RR, B/L 2+ LE edema to high shins A: ADHF, moderate fluid overload, HFpEF, PAF now SR; CAD, NSTEMI likely type II ; acute on chronic anemia, lung Ca; hepatopathy P: - c/w volume control - wane off NTG drip, can try low dose of isodil if dyspnea or cp - UA for possible hematuria - switch lipitor to either pravastatin or crestor - TTE Ever Siddiqi MD, PhD Assessment and Plan Discussion w patient/family: The assessment and plan as outlined above was discussed with the patient and/or family members who expressed understanding and agreement. All questions were answered. Thank you for involving us in the care of your patient. Please call with any questions. History of Present Illness History of present illness: Ms. Manning is a 67 year old female All Systems Review: The remainder of the systems were reviewed and are negative Results 01/06/18 13:04 01/06/18 04:50 Lab Results 01/05/18 01/06/18 01/06/18 16:02 00:20 04:50 WBC 10.6 Hgb 7.1 L D Hct 22.9 L Plt Count 258 Sodium Potassium Chloride Carbon Dioxide BUN Creatinine Glucose Calcium Magnesium Troponin I 0.28 H* 0.17 H* 01/06/18 01/06/18 04:50 13:04 WBC Hgb 7.7 L Hct 24.8 L Plt Count Sodium 132 L Potassium 3.5 Chloride 98 Carbon Dioxide 25 BUN 10 Creatinine 0.39 L Glucose 115 H Calcium 9.1 Magnesium 1.6 Troponin I
--- NOTE | 2018-01-06 12:50 | Internal Med Progress Note ---
Hospitalist Progress Note - Encounter Date of Encounter: 01/06/18 Time of Encounter: 12:46 - Subjective Interval History: Patient seen and examined at bedside. Patient no acute overnight events. Currently the patient is sitting on side of the bed with family at bedside. Patient is on room air and in no respiratory distress. Patient denies any chest pain, palpitations, nausea, vomiting, diarrhea. Patient states that her breathing is much improved but not quite to baseline yet. Patient unsure if she is having orthopnea she is not laid flat. - Exam Vitals: Temp Pulse Resp BP Pulse Ox 97.9 F 93 18 112/65 100 01/06/18 11:27 01/06/18 11:27 01/06/18 11:27 01/06/18 11:27 01/06/18 11:27 Exam: Constitutional: No acute distress, Alert Psych: AAO x 3 HEENT: NCAT, EOMI Neck: supple, no JVD Cardio: regular rate and rhythm, +s1s2, no murmurs/rubs/gallops, no JVD Resp: He sounds in bases with bibasilar crackles Chest: port in right chest with no erythema Abd: soft, non tender/non distended, positive bowel sounds Extremities: mild non pitting edema bilateral lower extremities Neuro: no focal deficits appreciated - Assessment and Plan (1) Acute respiratory failure with hypoxia and hypercapnia Current Visit: Yes Status: Acute Assessment and Plan: Likely due to acute exacerbation of diastolic dysfunction failure -Patient met sepsis criteria with possible pneumonia and antibiotics were started will continue for now -Patient is respiratory failure is improving and no longer on BiPAP or requiring oxygen -This is most likely secondary to flash pulmonary edema from hypertensive emergency -Patient currently on nitro drip and receiving IV diuresis -We will wean nitro drip -Blood pressure much improved -BiPAP when necessary and daily at bedtime (2) Acute diastolic (congestive) heart failure Current Visit: Yes Status: Acute Assessment and Plan: -Improving but remains decompensated -Continue IV diuresis -On nitro drip will wean -Cardiology following -2-D echocardiogram pending -Monitor telemetry -Strict intake and output (3) Flash pulmonary edema Current Visit: Yes Status: Acute Assessment and Plan: Much improved with IV diuresis and nitro drip and noninvasive ventilation -Continue IV diuresis and wean nitro drip -BiPAP when necessary (4) Paroxysmal atrial fibrillation Current Visit: No Status: Chronic Assessment and Plan: Continue metoprolol and xarelto -We will recheck hemoglobin as there was a dropped to 7 and her hemoglobin today ; however patient states her baseline is around 8 -However the patient's hemoglobin was 9 on admission -Patient received Xarelto yesterday and today -Monitor hemoglobin if hemoglobin drops below 7 we will transfuse and may have to hold Xarelto (5) Elevated troponin Current Visit: Yes Status: Acute Assessment and Plan: -Likely due to demand and hypoxia -Trended up to 0.28 and now down to 0.17 -Cardiology following (6) Sepsis Current Visit: Yes Status: Acute Assessment and Plan: Pt comes in with shortness of breath, leukocytosis and tachycardia. Subjective chills at home. -Was recently in the hospital last month. -Unclear if infectious as the patient has been afebrile and had rapid resolution of her leukocytosis which could be related reactive -HCAP Coverage was started on admission will continue for now and follow cultures hopefully de-escalate quickly -Lactic acid now normal (7) Metastatic lung cancer (metastasis from lung to other site) Current Visit: No Status: Chronic Assessment and Plan: Outpatient follow up (8) Anemia Current Visit: Yes Status: Acute Assessment and Plan: Patient with recent chronic anemia likely secondary to bone marrow suppression from chemotherapy -Baseline appears to be around 8-9 since November -Patient had a drop in hemoglobin from 9.1-7.1 -Reports no melena, hematochezia, hematuria -We will repeat H&H now and transfuse if less than 7 -Patient is on xarelto; may need to hold if continued drop -Check stool for occult blood -Type and cross -We will check iron studies and reticulocyte count -Hemodynamically stable (9) Pneumonia Current Visit: Yes Status: Acute Assessment and Plan: -Possible pneumonia based on history and imaging -Unsure if broad-spectrum coverage needed HCAP hopefully de-escalate quickly will monitor cultures (10) DVT prophylaxis Current Visit: No Status: Acute Assessment and Plan: On xarelto and received a dose today - Time Spent with Patient Total time spent is greater than 50% in coordination of care (as documented) at patient's floor/unit and/or counseling patient: 25 - 35 minutes Plan of Care Discussed with: patient Internal Medicine: Result - Labs CBC & Chem 7: 01/06/18 04:50 01/06/18 04:50 Labs: Short CBC 01/06/18 Range/Units 04:50 WBC 10.6 (4.3-11.1) K/mcL Hgb 7.1 L D (11.5-15.4) g/dL Hct 22.9 L (35.3-44.9) % Plt Count 258 (140-400) K/mcL Neutrophils # 8.2 (1.6-8.9) K/mcL BMP 01/06/18 04:50 Sodium 132 L Potassium 3.5 Chloride 98 Carbon Dioxide 25 BUN 10 Creatinine 0.39 L Glucose 115 H Calcium 9.1 Cardiac Enzymes 01/05/18 01/06/18 Range/Units 16:02 00:20 Troponin I 0.28 H* 0.17 H* (< 0.04) ng/mL - ABG Interpretation ABG results: ABG ABG pH 7.28 pH Units (7.32-7.45) L 01/05/18 08:50 ABG pCO2 49 mmHg (35-45) H 01/05/18 08:50 ABG pO2 73 mmHg (85-104) L 01/05/18 08:50 ABG O2 Saturation 92 % (95-98) L 01/05/18 08:50 PT/INR, D-dimer PT 12.6 Seconds (9.4-12.1) H 01/05/18 08:54 Consult Discharge Plan - Plan Referrals: Marleny Robles, [facility] [employer] [employer] [facility] [Primary Care Provider] - (6) Sepsis Qualifiers: Sepsis type: sepsis due to unspecified organism Qualified Code(s): A41.9 - Sepsis, unspecified organism (7) Metastatic lung cancer (metastasis from lung to other site) Qualifiers: Laterality: unspecified laterality Qualified Code(s): C34.90 - Malignant neoplasm of unspecified part of unspecified bronchus or lung (8) Anemia Qualifiers: Anemia type: unspecified type Qualified Code(s): D64.9 - Anemia, unspecified (9) Pneumonia Qualifiers: Pneumonia type: due to unspecified organism
[2018-01-06 13:14] LABS: Hematocrit 24.8 % (35.3-44.9); Hemoglobin 7.7 g/dL (11.5-15.4)
[2018-01-06 13:41] LABS: Immature Reticulocyte % 33.3 % (11.0-38.0); Retculocyte # 0.08 M/mcL (0.05-0.10); Reticulocyte % 2.7 % (1.6-2.8)
[2018-01-06 13:58] LABS: Estimated Average Glucose 114 mg/dl; Hemoglobin A1C 5.6 %
[2018-01-07 03:51] LABS: Basophils % 0.4 %; Eosinophils # 0.3 K/mcL (0.0-0.6); Eosinophils % 3.3 %; Hematocrit 25.1 % (35.3-44.9); Hemoglobin 7.8 g/dL (11.5-15.4); Immature Granulocytes % 0.5 % (0-4); Lymphocytes # 1.5 K/mcL (0.6-4.6); Lymphocytes % 14.7 %; Mean Corpuscular HGB Conc 31.1 g/dL (31.6-35.5); Mean Corpuscular Hemoglobin 23.6 pg (28.0-33.3); Mean Corpuscular Volume 75.8 fL (83.0-100.0); Mean Platelet Volume 9.5 fL (9.4-12.4); Monocytes # 1.3 K/mcL (0.0-1.3); Monocytes % 12.3 %; Platelet Count 269 K/mcL (140-400); Red Blood Count 3.31 M/mcL (3.82-4.97); Red Cell Distribution Width 22.7 % (11.5-14.5); Segmented Neutrophils % 68.8 %
[2018-01-07 04:11] LABS: BUN/Creatinine Ratio 29 (6-26); Blood Urea Nitrogen 13 mg/dL (8-23); Calcium 9.3 mg/dL (8.6-10.3); Carbon Dioxide 25 mEq/L (23-29); Chloride 100 mEq/L (98-107); Glucose 117 mg/dL (70-105); Magnesium 1.6 mg/dL (1.6-2.6); Osmolality,Calculated 277 (280-300); Phosphorous 2.8 mg/dL (2.7-4.5); Sodium 133 mEq/L (136-145); eGFR For Non-African Americans > 60 (> 60)
[2018-01-07 05:06] LABS: Iron < 10 mcg/dL (50-170); Transferrin 315 mg/dL (203-362)
[2018-01-07] MEDS: Levothyroxine 25 MCG TABLET PO SCH (06:09)
[2018-01-07] MEDS: traMADol 50 MG TABLET PO PRN ×3 (06:13→20:56)
[2018-01-07] MEDS: tiZANidine 4 MG TABLET PO PRN ×3 (06:13→16:32)
[2018-01-07] MEDS: Tiotropium 18 MCG inhalation IH SCH (07:51)
[2018-01-07] MEDS: Budesonide/Formoterol 160/4.5 1 PUFF INH IH SCH ×2 (07:51→21:33)
[2018-01-07] MEDS: Levofloxacin 750 MG/150 ML 750 MG/150 ML BAG IVPB SCH (08:00)
[2018-01-07] MEDS: Cyanocobalamin (B-12) 1,000 MCG TABLET PO SCH (08:06)
[2018-01-07] MEDS: Furosemide 40 MG/4 ML VIAL IVP SCH ×2 (08:06→16:25)
[2018-01-07] MEDS: Cholecalciferol (D-3) 1,000 UNIT TABLET PO SCH (08:06)
[2018-01-07] MEDS: Aspirin 81 MG TAB.CHEW PO SCH (08:07)
[2018-01-07] MEDS: *HR* Rivaroxaban 10 MG TABLET PO SCH (08:07)
[2018-01-07] MEDS: Metoprolol XL (24 HR) Succ 50 MG TAB.ER.24H PO SCH (08:07)
[2018-01-07] MEDS ORDERED: Potassium Chloride Elixir 20 MEQ/15 ML UDC PO SCH (10:00)
--- NOTE | 2018-01-07 11:05 | Cardiology Progress Note ---
Date of Encounter: 01/07/18 Time of Encounter: 09:30 Assessment and Plan (1) CHF (congestive heart failure) Current Visit: Yes Status: Acute Per cardiology: -Known diastolic CHF. -MOst recent tte 05/2017 with LVEF 60-65%, indeterminate diastolic function, mild -moderate AR, mild MR, no segmental wall motion abnormalities noted. -TTE now with LVEF 50-55%, anterior septal wall hypokinetic, mild diastolic dsyfunction, mild AR. -ADmitted with worsening shortness of breath. -BNP 900s. -Chest x-ray with pulmonary edema. -Currently on IV lasix Net negative 1291ml. Remains mildly volume overloaded on exam. -Reports symptoms much improved. -Dry weight about 87kg, currently 88kg. -Agree with IV diuresis, suspect 24 hours more of IV diuresis. -Strict i/os, fluid restirction, daily weights. -Will continue to monitor. Qualifiers: Heart failure type: diastolic Heart failure chronicity: acute on chronic Qualified Code(s): I50.33 - Acute on chronic diastolic (congestive) heart failure (2) Elevated troponin Current Visit: Yes Status: Acute Per cardiology: -Troponins 0.11, 0.28, 0.17 in the setting of pneumonia, sepsis, CHF, anemia, metastatic lung cancer. -Patient deneis chest pain. -No acute ischemic ECG changes, -12/2015 stress negative for ischemia. -TTE with LVEF 50-55%, anterior septal wall hypokinetic, all other wall segments with normal motion. OF note, has had previous wall motion abnormalities on previous TTEs. -NSTEMI II in the setting of the above. No cardiac rehab consult warranted. -With wall motion abnormality, would favor conservative medical management with stage IV mets cancer, anemia. (3) Paroxysmal atrial fibrillation Current Visit: No Status: Chronic Per cardiology: -Known PAF, currently SR. -ON BB and xarelto for anticoagulation. -Braxv2iyym score 6 (age, gender, CAD, CHF, TIA/DVT). Currently on xarelto, however hemoglobin 9.1 admission, now 7.8 -Continue to monitor hemoglobin closely. Can consider discontinuation of xarelto , however would increase patient's risk of CVA/embolic event. (4) CAD (coronary artery disease) Current Visit: No Status: Chronic Per cardiology: -Known CAD s/p LHC 03/2015 with 40% mid LAD, 20% mid circumflex, 70% mid RCA with BMS placed. -On asa, statin, BB. -LFTS noted to be elevated. -Discussed and reviewed with , will stop atorvastatin in the setting of LFTS elevated. will start low dose rosuvastatin. Qualifiers: Coronary Disease-Associated Artery/Lesion type: false pass artery [place] vs. transplanted heart: false pass heart Associated angina: without angina Qualified Code(s): I25.10 - Atherosclerotic heart disease of false pass coronary artery without angina pectoris Discussion w patient/family: The assessment and plan as outlined above was discussed with the patient and family who expressed understanding and agreement. All questions were answered. Thank you for involving us in the care of your patient. Please call with any questions. Discussed and reviewed with Subjective Principal diagnosis: CHF Interval history: Patient reports breathing is much improved today. States almost back to baseline. Objective Vital Signs, Last 4 Hours Temp Pulse Resp BP Pulse Ox 01/07/18 08:05 98.2 F 92 16 100/53 97 01/07/18 07:51 16 97 General: Conversant, No Apparent Distress HEENT: Atraumatic, Normocephaly, Mucus Membranes Moist Neck: No JVD, Normal carotid pulses Cardiac: Reg Rate and Rhythm, Normal S1 and S2, No Murmur Lungs: Normal Breath Sounds, No Wheeze, Rales, Rhonchi Neuro: Alert and responsive, No focal deficits noted Abdomen: Soft, Non-Tender Skin: No rashes noted on visualized skin Musculoskeletal: No Chest Wall Tenderness Extremities: No Clubbing, No Cyanosis, Normal Pulses, Other (Mild bilateral lower extremity edema noted. ) Results 01/07/18 03:25 01/07/18 03:25 Lab Results Impressions Echocardiogram 01/06/18 15:00 Impressions: LVEF 50-55%. Normal LV chamber size, wall thickness and overall function. Mild segmental left ventricular systolic dysfunction. Mild left ventricular diastolic dysfunction. Normal right ventricular structure and function. Mild aortic regurgitation. Unable to estimate RVSP due to lack of TR jet. Findings: Study Quality * Technically adequate exam. ECG Findings * Normal sinus rhythm. Left Ventricle * LVEF 50-55%. * Normal LV chamber size, wall thickness and overall function. * Mild segmental left ventricular systolic dysfunction. * Mild left ventricular diastolic dysfunction. Right Ventricle * Normal right ventricular structure and function. Left Atrium * Moderately dilated left atrium. Right Atrium * Mildly dilated right atrium. Aortic Valve * Trileaflet aortic valve. * Mild aortic regurgitation. * No aortic stenosis. Mitral Valve * Vy mild posterior mitral annular calcification. * No mitral regurgitation. * No mitral stenosis. Tricuspid Valve * Normal tricuspid valve structure and function. * No tricuspid regurgitation. * Unable to estimate RVSP due to lack of TR jet. Pulmonic Valve * Normal pulmonic valve structure and function. * No pulmonic regurgitation. Aorta * Normally sized aortic root. Pericardium * The pericardium appears normal. IVC * Normal IVC dimensions and inspiratory collapse. Pulmonary Artery * Normal visualized portions of the main pulmonary artery. ADDENDUM: 01/07/18 1033 Impressions: LVEF 50-55%. Normal LV chamber size, wall thickness and overall function. Mild segmental left ventricular systolic dysfunction. Mild left ventricular diastolic dysfunction. Normal right ventricular structure and function. Unable to estimate RVSP due to lack of TR jet. Mild aortic regurgitation. Left Ventricular Wall Motion: Rest Echo Findings The mid anterior septal wall was hypokinetic. All other wall segments showed normal motion. Findings: Study Quality * Technically adequate exam. ECG Findings * Normal sinus rhythm. Left Ventricle * LVEF 50-55%. * Normal LV chamber size, wall thickness and overall function. * Mild segmental left ventricular systolic dysfunction. * Mild left ventricular diastolic dysfunction. Right Ventricle * Normal right ventricular structure and function. Left Atrium * Moderately dilated left atrium. Right Atrium * Mildly dilated right atrium. Aortic Valve * Trileaflet aortic valve. * Mild aortic regurgitation. * No aortic stenosis. Mitral Valve * Very mild posterior mitral annular calcification. * No mitral regurgitation. * No mitral stenosis. Tricuspid Valve * Normal tricuspid valve structure and function. * No tricuspid regurgitation. * Unable to estimate RVSP due to lack of TR jet. Pulmonic Valve * Normal pulmonic valve structure and function. * No pulmonic regurgitation. Aorta * Normally sized aortic root. Pericardium * The pericardium appears normal. IVC * Normal IVC dimensions and inspiratory collapse. Pulmonary Artery * Normal visualized portions of the main pulmonary artery. Active Medications Acetaminophen (Tylenol) 325 mg PO Q6HR PRN PRN Reason: Pain Stop: 07/07/18 11:48 Last Admin: 01/06/18 00:54 Dose: 325 mg Albuterol/Ipratropium (Duoneb) 3 ml IH [id number] PRN PRN Reason: Dyspnea Stop: 07/07/18 11:53 Aspirin (Aspirin) 81 mg PO DAILY ESTHER Stop: 07/07/18 12:01 Last Admin: 01/07/18 08:07 Dose: 81 mg Budesonide/Formoterol Fumarate (Symbicort) 2 puff IH BIDR ESTHER PRN Reason: Protocol Stop: 07/07/18 22:01 Last Admin: 01/07/18 07:51 Dose: 2 puff Cyanocobalamin (Vitamin B12) 2,500 mcg PO DAILY ESTHER Stop: 07/08/18 09:01 Last Admin: 01/07/18 08:06 Dose: 2,500 mcg Furosemide (Lasix) 40 mg IVP BIDDIURETIC ESTHER Stop: 07/07/18 17:01 Last Admin: 01/07/18 08:06 Dose: 40 mg Guaifenesin (Mucinex) 600 mg PO DAILY PRN PRN Reason: Cough Last Admin: 01/07/18 08:07 Dose: 600 mg Hydroxychloroquine Sulfate (Plaquenuil) 200 mg PO BID ESTHER Stop: 07/07/18 21:01 Last Admin: 01/07/18 08:07 Dose: 200 mg Levofloxacin/Dextrose (Levaquin Premix 750mg/150 Ml) 750 mg in 150 mls @ 100 mls/hr IVPB DAILY ESTHER PRN Reason: Protocol Stop: 07/08/18 09:01 Last Admin: 01/07/18 08:00 Dose: 100 mls/hr Vancomycin HCl 1,250 mg/ (Sodium Chloride) 250 mls @ 166.67 mls/hr IVPB Q12H ESTHER Stop: 07/08/18 17:01 Last Infusion: 01/07/18 07:40 Dose: Infused Levothyroxine Sodium (Synthroid) 37.5 mcg PO 0630 ESTHER Stop: 07/08/18 06:31 Last Admin: 01/07/18 06:09 Dose: 37.5 mcg Metoprolol Succinate (Toprol Xl) 100 mg PO DAILY ESTHER Stop: 07/08/18 09:01 Last Admin: 01/07/18 08:07 Dose: 100 mg Multi-Ingredient Mouthwash/Gargle (Magic Mouthwash) 10 ml PO QID PRN PRN Reason: Mouth Irritation Naloxone HCl (Narcan) 0.4 mg IVP Q2MIN PRN PRN Reason: SEE COMMENTS Stop: 07/07/18 11:46 Omeprazole (Prilosec) 20 mg PO DAILY ESTHER Stop: 07/08/18 09:01 Last Admin: 01/07/18 08:06 Dose: 20 mg Polyethylene Glycol (Miralax) 17 gm PO Q48H ESTHER Stop: 07/07/18 12:01 Last Admin: 01/05/18 17:02 Dose: 17 gm Potassium Chloride (Potassium Chloride) 40 meq PO BID ESTHER Stop: 01/07/18 21:01 Rivaroxaban (Xarelto) 20 mg PO DAILY [facility] Stop: 07/07/18 12:01 Last Admin: 01/07/18 08:07 Dose: 20 mg Rosuvastatin Calcium (Crestor) 10 mg PO HS [facility] Stop: 07/08/18 21:01 Last Admin: 01/06/18 20:26 Dose: 10 mg Sertraline HCl (Zoloft) 200 mg PO DAILY ESTHER Stop: 07/08/18 09:01 Last Admin: 01/07/18 08:06 Dose: 200 mg Tiotropium [place] (Spiriva) 18 mcg IH DAILYR [facility] Stop: 07/08/18 10:01 Last Admin: 01/07/18 07:51 Dose: 18 mcg Tizanidine HCl (Zanaflex) 4 mg PO TID PRN PRN Reason: Pain Last Admin: 01/07/18 08:07 Dose: 4 mg Tramadol HCl (Ultram) 50 mg PO TID PRN PRN Reason: Pain Stop: 07/08/18 15:52 Last Admin: 01/07/18 06:13 Dose: 50 mg Vitamin D (Vitamin D) 1,000 unit PO DAILY ESTHER Stop: 07/07/18 21:01 Last Admin: 01/07/18 08:06 Dose: 1,000 unit Zolpidem Tartrate (Ambien) 5 mg PO HS PRN; Protocol PRN Reason: Insomnia Stop: 07/07/18 11:48 Laboratory Tests 01/05/18 01/07/18 01/07/18 08:54 03:25 03:25 Hgb 9.1 L 7.8 L Potassium 3.0 L Creatinine 0.45 L - Imaging and Cardiology Chest Xray: report reviewed Echo: report reviewed Cardiac cath: report reviewed - EKG Interpretation EKG results cardiology: other (Telemetry reviewed with average HR previous 12 hours noted to be 95, SR. PVCs and PACs noted.) Consult Discharge Plan - Plan Referrals: Marleny Robles, [facility] [place] [place] [Primary Care Provider] -
--- NOTE | 2018-01-07 12:27 | Internal Med Progress Note ---
Hospitalist Progress Note - Encounter Date of Encounter: 01/07/18 Time of Encounter: 12:25 - Subjective Interval History: Patient seen and examined at bedside. Patient no acute overnight events. Patient reports that she is feeling much better today. Patient states her breathing is improved. However she states that she occasionally gets short of breath. Patient denies any chest pain, palpitations, nausea, vomiting, diarrhea. - Exam Vitals: Temp Pulse Resp BP Pulse Ox 98.1 F 80 16 111/57 96 01/07/18 11:32 01/07/18 11:32 01/07/18 11:32 01/07/18 11:32 01/07/18 11:32 Exam: Constitutional: No acute distress, Alert Psych: AAO x 3 HEENT: NCAT, EOMI Neck: supple, no JVD Cardio: regular rate and rhythm, +s1s2, no murmurs/rubs/gallops, no JVD Resp: decreased sounds in bases with bibasilar crackles Chest: port in right chest with no erythema Abd: soft, non tender/non distended, positive bowel sounds Extremities: mild non pitting edema bilateral lower extremities Neuro: no focal deficits appreciated - Assessment and Plan (1) Acute respiratory failure with hypoxia and hypercapnia Current Visit: Yes Status: Acute Assessment and Plan: Likely due to acute exacerbation of diastolic dysfunction failure -Patient met sepsis criteria with possible pneumonia and antibiotics were started will continue for now -Patient is respiratory failure is improving and no longer on BiPAP or requiring oxygen -This is most likely secondary to flash pulmonary edema from hypertensive emergency -Respiratory failure improving -IV diuresis -off nitro gtt -Blood pressure controlled -BiPAP when necessary and daily at bedtime (2) Acute diastolic (congestive) heart failure Current Visit: Yes Status: Acute Assessment and Plan: -Improving but remains decompensated -Continue IV diuresis -off nitro gtt -Cardiology following -2-D echocardiogram with ef 50-55% with mild left ventricular systolic and diastolic dysfunction -Monitor telemetry -Strict intake and output; saleem removed (3) Flash pulmonary edema Current Visit: Yes Status: Acute Assessment and Plan: -resolved -Continue IV diuresis -off nitro gtt -BiPAP when necessary (4) Paroxysmal atrial fibrillation Current Visit: No Status: Chronic Assessment and Plan: Continue metoprolol and xarelto -hemoglobin stable (5) Elevated troponin Current Visit: Yes Status: Acute (6) Sepsis Current Visit: Yes Status: Acute Assessment and Plan: Pt comes in with shortness of breath, leukocytosis and tachycardia. Subjective chills at home. -Was recently in the hospital last month. -Unclear if infectious as the patient has been afebrile and had rapid resolution of her leukocytosis which could be related reactive -HCAP Coverage was started on admission will continue for now and follow cultures hopefully de-escalate soon -Lactic acid now normal (7) Metastatic lung cancer (metastasis from lung to other site) Current Visit: No Status: Chronic Assessment and Plan: Outpatient follow up (8) Anemia Current Visit: Yes Status: Acute Assessment and Plan: Patient with recent chronic anemia likely secondary to bone marrow suppression from chemotherapy -Baseline appears to be around 8-9 since November -Patient had a drop in hemoglobin from 9.1-7.1 -hgb remains stable (9) Pneumonia Current Visit: Yes Status: Acute Assessment and Plan: -Possible pneumonia based on history and imaging -Unsure if broad-spectrum coverage needed HCAP hopefully de-escalate quickly will monitor cultures (10) DVT prophylaxis Current Visit: No Status: Acute Assessment and Plan: On xarelto and received a dose today - Time Spent with Patient Total time spent is greater than 50% in coordination of care (as documented) at patient's floor/unit and/or counseling patient: 25 - 35 minutes Plan of Care Discussed with: patient Internal Medicine: Result - Labs CBC & Chem 7: 01/07/18 03:25 01/07/18 03:25 Labs: Short CBC 01/06/18 01/07/18 Range/Units 13:04 03:25 WBC 10.2 (4.3-11.1) K/mcL Hgb 7.7 L 7.8 L (11.5-15.4) g/dL Hct 24.8 L 25.1 L (35.3-44.9) % Plt Count 269 (140-400) K/mcL Neutrophils # 7.0 (1.6-8.9) K/mcL BMP 01/07/18 03:25 Sodium 133 L Potassium 3.0 L Chloride 100 Carbon Dioxide 25 BUN 13 Creatinine 0.45 L Glucose 117 H Calcium 9.3 - ABG Interpretation ABG results: ABG ABG pH 7.28 pH Units (7.32-7.45) L 01/05/18 08:50 ABG pCO2 49 mmHg (35-45) H 01/05/18 08:50 ABG pO2 73 mmHg (85-104) L 01/05/18 08:50 ABG O2 Saturation 92 % (95-98) L 01/05/18 08:50 PT/INR, D-dimer PT 12.6 Seconds (9.4-12.1) H 01/05/18 08:54 - Impressions Impressions Echocardiogram 01/06/18 15:00 Impressions: LVEF 50-55%. Normal LV chamber size, wall thickness and overall function. Mild segmental left ventricular systolic dysfunction. Mild left ventricular diastolic dysfunction. Normal right ventricular structure and function. Mild aortic regurgitation. Unable to estimate RVSP due to lack of TR jet. Findings: Study Quality * Technically adequate exam. ECG Findings * Normal sinus rhythm. Left Ventricle * LVEF 50-55%. * Normal LV chamber size, wall thickness and overall function. * Mild segmental left ventricular systolic dysfunction. * Mild left ventricular diastolic dysfunction. Right Ventricle * Normal right ventricular structure and function. Left Atrium * Moderately dilated left atrium. Right Atrium * Mildly dilated right atrium. Aortic Valve * Trileaflet aortic valve. * Mild aortic regurgitation. * No aortic stenosis. Mitral Valve * Vy mild posterior mitral annular calcification. * No mitral regurgitation. * No mitral stenosis. Tricuspid Valve * Normal tricuspid valve structure and function. * No tricuspid regurgitation. * Unable to estimate RVSP due to lack of TR jet. Pulmonic Valve * Normal pulmonic valve structure and function. * No pulmonic regurgitation. Aorta * Normally sized aortic root. Pericardium * The pericardium appears normal. IVC * Normal IVC dimensions and inspiratory collapse. Pulmonary Artery * Normal visualized portions of the main pulmonary artery. ADDENDUM: 01/07/18 1033 Impressions: LVEF 50-55%. Normal LV chamber size, wall thickness and overall function. Mild segmental left ventricular systolic dysfunction. Mild left ventricular diastolic dysfunction. Normal right ventricular structure and function. Unable to estimate RVSP due to lack of TR jet. Mild aortic regurgitation. Left Ventricular Wall Motion: Rest Echo Findings The mid anterior septal wall was hypokinetic. All other wall segments showed normal motion. Findings: Study Quality * Technically adequate exam. ECG Findings * Normal sinus rhythm. Left Ventricle * LVEF 50-55%. * Normal LV chamber size, wall thickness and overall function. * Mild segmental left ventricular systolic dysfunction. * Mild left ventricular diastolic dysfunction. Right Ventricle * Normal right ventricular structure and function. Left Atrium * Moderately dilated left atrium. Right Atrium * Mildly dilated right atrium. Aortic Valve * Trileaflet aortic valve. * Mild aortic regurgitation. * No aortic stenosis. Mitral Valve * Very mild posterior mitral annular calcification. * No mitral regurgitation. * No mitral stenosis. Tricuspid Valve * Normal tricuspid valve structure and function. * No tricuspid regurgitation. * Unable to estimate RVSP due to lack of TR jet. Pulmonic Valve * Normal pulmonic valve structure and function. * No pulmonic regurgitation. Aorta * Normally sized aortic root. Pericardium * The pericardium appears normal. IVC * Normal IVC dimensions and inspiratory collapse. Pulmonary Artery * Normal visualized portions of the main pulmonary artery. Consult Discharge Plan - Plan Referrals: Marleny Robles, [employer] [Primary Care Provider] - (6) Sepsis Qualifiers: Sepsis type: sepsis due to unspecified organism Qualified Code(s): A41.9 - Sepsis, unspecified organism (7) Metastatic lung cancer (metastasis from lung to other site) Qualifiers: Laterality: unspecified laterality Qualified Code(s): C34.90 - Malignant neoplasm of unspecified part of unspecified bronchus or lung (8) Anemia Qualifiers: Anemia type: unspecified type Qualified Code(s): D64.9 - Anemia, unspecified (9) Pneumonia Qualifiers: Pneumonia type: due to unspecified organism
[2018-01-08] MEDS: tiZANidine 4 MG TABLET PO PRN ×2 (04:53→16:42)
[2018-01-08] MEDS: Levothyroxine 25 MCG TABLET PO SCH (04:53)
[2018-01-08 05:43] LABS: Basophils # 0.1 K/mcL (0.0-0.2); Basophils % 0.5 %; Eosinophils # 0.3 K/mcL (0.0-0.6); Eosinophils % 2.9 %; Hemoglobin 7.8 g/dL (11.5-15.4); Immature Granulocytes % 0.5 % (0-4); Lymphocytes # 1.3 K/mcL (0.6-4.6); Lymphocytes % 11.4 %; Mean Corpuscular HGB Conc 31.2 g/dL (31.6-35.5); Mean Corpuscular Hemoglobin 23.1 pg (28.0-33.3); Mean Corpuscular Volume 74.2 fL (83.0-100.0); Mean Platelet Volume 10.6 fL (9.4-12.4); Monocytes # 1.2 K/mcL (0.0-1.3); Monocytes % 11.1 %; Neutrophils # 8.2 K/mcL (1.6-8.9); Platelet Count 310 K/mcL (140-400); Red Blood Count 3.37 M/mcL (3.82-4.97); Red Cell Distribution Width 23.3 % (11.5-14.5); Segmented Neutrophils % 73.6 %
[2018-01-08 06:05] LABS: BUN/Creatinine Ratio 29 (6-26); Blood Urea Nitrogen 15 mg/dL (8-23); Calcium 9.3 mg/dL (8.6-10.3); Carbon Dioxide 23 mEq/L (23-29); Chloride 100 mEq/L (98-107); Glucose 112 mg/dL (70-105); Magnesium 1.5 mg/dL (1.6-2.6); Osmolality,Calculated 278 (280-300); Phosphorous 2.8 mg/dL (2.7-4.5); Potassium 3.6 mEq/L (3.5-5.1); Sodium 133 mEq/L (136-145); eGFR For Non-African Americans > 60 (> 60)
[2018-01-08 06:15] LABS: Anisocytosis 2+ (Not Present); Hypochromasia Present (Not Present); Microcytosis Present (Not Present); Platelet Estimate Normal (Normal)
--- NOTE | 2018-01-08 06:46 | Electrocardiograph Report ---
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
[2018-01-08] MEDS: Budesonide/Formoterol 160/4.5 1 PUFF INH IH SCH ×2 (07:50→22:07)
[2018-01-08] MEDS: Tiotropium 18 MCG inhalation IH SCH (07:50)
[2018-01-08] MEDS: Levofloxacin 750 MG/150 ML 750 MG/150 ML BAG IVPB SCH (08:30)
[2018-01-08] MEDS: Furosemide 40 MG/4 ML VIAL IVP SCH (08:32)
[2018-01-08] MEDS: Cyanocobalamin (B-12) 1,000 MCG TABLET PO SCH (08:32)
[2018-01-08] MEDS: Cholecalciferol (D-3) 1,000 UNIT TABLET PO SCH (08:32)
[2018-01-08] MEDS: *HR* Rivaroxaban 10 MG TABLET PO SCH (08:33)
[2018-01-08] MEDS: Metoprolol XL (24 HR) Succ 50 MG TAB.ER.24H PO SCH (08:33)
[2018-01-08] MEDS: traMADol 50 MG TABLET PO PRN ×2 (08:33→16:20)
[2018-01-08] MEDS: Aspirin 81 MG TAB.CHEW PO SCH (08:33)
[2018-01-08] MEDS ORDERED: Ondansetron 4 MG/2 ML VIAL IVP PRN (09:44)
[2018-01-08] MEDS ORDERED: Ondansetron 4 MG/2 ML VIAL ONE (09:47)
--- NOTE | 2018-01-08 10:09 | Cardiology Progress Note ---
Date of Encounter: 01/08/18 Time of Encounter: 09:30 Assessment and Plan (1) CHF (congestive heart failure) Current Visit: Yes Status: Acute Per cardiology: -Known diastolic CHF. -MOst recent tte 05/2017 with LVEF 60-65%, indeterminate diastolic function, mild -moderate AR, mild MR, no segmental wall motion abnormalities noted. -TTE now with LVEF 50-55%, anterior septal wall hypokinetic, mild diastolic dsyfunction, mild AR. -ADmitted with worsening shortness of breath. -BNP 900s. -Chest x-ray with pulmonary edema. -Currently on IV lasix Net negative 2000ml. Currently on room air, states breathing is back to normal. -Reports symptoms much improved. -Dry weight about 87kg, currently 86.9kg. -Will switch IV lasix to oral. Previously taking 80mg daily, will start 60mg BID. -Strict i/os, fluid restirction, daily weights. -CHF education reviewed with patient and family. -CArdiology will sign off, will arrange close outpatient follow up. Qualifiers: Heart failure type: diastolic Heart failure chronicity: acute on chronic Qualified Code(s): I50.33 - Acute on chronic diastolic (congestive) heart failure (2) Elevated troponin Current Visit: Yes Status: Acute Per cardiology: -Troponins 0.11, 0.28, 0.17 in the setting of pneumonia, sepsis, CHF, anemia, metastatic lung cancer. -Patient deneis chest pain. -No acute ischemic ECG changes, -12/2015 stress negative for ischemia. -TTE with LVEF 50-55%, anterior septal wall hypokinetic, all other wall segments with normal motion. OF note, has had previous wall motion abnormalities on previous TTEs. -NSTEMI II in the setting of the above. No cardiac rehab consult warranted. -With wall motion abnormality, would favor conservative medical management with stage IV mets cancer, anemia.Patient educated and agrees with medical management. (3) Paroxysmal atrial fibrillation Current Visit: No Status: Chronic Per cardiology: -Known PAF, currently SR. -ON BB and xarelto for anticoagulation. -[id number] score 6 (age, gender, CAD, CHF, TIA/DVT). Currently on xarelto, however hemoglobin 9.1 admission, now 7.8 -Continue to monitor hemoglobin closely. Can consider discontinuation of xarelto , however would increase patient's risk of CVA/embolic event. (4) CAD (coronary artery disease) Current Visit: No Status: Chronic Per cardiology: -Known CAD s/p [facility] 03/2015 with 40% mid LAD, 20% mid circumflex, 70% mid RCA with BMS placed. -On asa, statin, BB. -LFTS noted to be elevated. -Discussed and reviewed with , will stop atorvastatin in the setting of LFTS elevated. will start low dose rosuvastatin. Qualifiers: Coronary Disease-Associated Artery/Lesion type: [place] artery [place] vs. transplanted heart: [place] heart Associated angina: without angina Qualified Code(s): I25.10 - Atherosclerotic heart disease of [place] coronary artery without angina pectoris Discussion w patient/family: The assessment and plan as outlined above was discussed with the patient and family who expressed understanding and agreement. All questions were answered. Thank you for involving us in the care of your patient. Please call with any questions. Discussed and reviewed with Subjective Principal diagnosis: CHF Interval history: Patient reports breathing is much improved today. States breathing and edema is back to baseline. Objective Vital Signs, Last 4 Hours Temp Pulse Resp BP Pulse Ox 01/08/18 07:52 18 95 01/08/18 06:52 98.7 F 82 20 120/55 100 General: Conversant, No Apparent Distress HEENT: Atraumatic, Normocephaly, Mucus Membranes Moist Neck: No JVD, Normal carotid pulses Cardiac: Reg Rate and Rhythm, Normal S1 and S2, No Murmur Lungs: Other (Lung sounds diminished to bilateral lower lobed. ) Neuro: Alert and responsive, No focal deficits noted Abdomen: Soft, Non-Tender Skin: No rashes noted on visualized skin Musculoskeletal: No Chest Wall Tenderness Extremities: No Clubbing, No Cyanosis, Normal Pulses, Other (Mild bilateral pedal edema. ) Results 01/08/18 04:55 01/08/18 04:55 Lab Results Impressions Chest X-Ray 01/05/18 08:40 IMPRESSION: Pulmonary edema. D/ / 01/05/2018 09:47:53 Kenny Pressley MD / yris Interpreting Provider: Kenny Pressley MD Echocardiogram 01/06/18 15:00 Impressions: LVEF 50-55%. Normal LV chamber size, wall thickness and overall function. Mild segmental left ventricular systolic dysfunction. Mild left ventricular diastolic dysfunction. Normal right ventricular structure and function. Mild aortic regurgitation. Unable to estimate RVSP due to lack of TR jet. Findings: Study Quality * Technically adequate exam. ECG Findings * Normal sinus rhythm. Left Ventricle * LVEF 50-55%. * Normal LV chamber size, wall thickness and overall function. * Mild segmental left ventricular systolic dysfunction. * Mild left ventricular diastolic dysfunction. Right Ventricle * Normal right ventricular structure and function. Left Atrium * Moderately dilated left atrium. Right Atrium * Mildly dilated right atrium. Aortic Valve * Trileaflet aortic valve. * Mild aortic regurgitation. * No aortic stenosis. Mitral Valve * Vy mild posterior mitral annular calcification. * No mitral regurgitation. * No mitral stenosis. Tricuspid Valve * Normal tricuspid valve structure and function. * No tricuspid regurgitation. * Unable to estimate RVSP due to lack of TR jet. Pulmonic Valve * Normal pulmonic valve structure and function. * No pulmonic regurgitation. Aorta * Normally sized aortic root. Pericardium * The pericardium appears normal. IVC * Normal IVC dimensions and inspiratory collapse. Pulmonary Artery * Normal visualized portions of the main pulmonary artery. ADDENDUM: 01/07/18 1033 Impressions: LVEF 50-55%. Normal LV chamber size, wall thickness and overall function. Mild segmental left ventricular systolic dysfunction. Mild left ventricular diastolic dysfunction. Normal right ventricular structure and function. Unable to estimate RVSP due to lack of TR jet. Mild aortic regurgitation. Left Ventricular Wall Motion: Rest Echo Findings The mid anterior septal wall was hypokinetic. All other wall segments showed normal motion. Findings: Study Quality * Technically adequate exam. ECG Findings * Normal sinus rhythm. Left Ventricle * LVEF 50-55%. * Normal LV chamber size, wall thickness and overall function. * Mild segmental left ventricular systolic dysfunction. * Mild left ventricular diastolic dysfunction. Right Ventricle * Normal right ventricular structure and function. Left Atrium * Moderately dilated left atrium. Right Atrium * Mildly dilated right atrium. Aortic Valve * Trileaflet aortic valve. * Mild aortic regurgitation. * No aortic stenosis. Mitral Valve * Very mild posterior mitral annular calcification. * No mitral regurgitation. * No mitral stenosis. Tricuspid Valve * Normal tricuspid valve structure and function. * No tricuspid regurgitation. * Unable to estimate RVSP due to lack of TR jet. Pulmonic Valve * Normal pulmonic valve structure and function. * No pulmonic regurgitation. Aorta * Normally sized aortic root. Pericardium * The pericardium appears normal. IVC * Normal IVC dimensions and inspiratory collapse. Pulmonary Artery * Normal visualized portions of the main pulmonary artery. Active Medications Acetaminophen (Tylenol) 325 mg PO Q6HR PRN PRN Reason: Pain Stop: 07/07/18 11:48 Last Admin: 01/06/18 00:54 Dose: 325 mg Albuterol/Ipratropium (Duoneb) 3 ml IH [id number] PRN PRN Reason: Dyspnea Stop: 07/07/18 11:53 Aspirin (Aspirin) 81 mg PO DAILY ESTHER Stop: 07/07/18 12:01 Last Admin: 01/08/18 08:33 Dose: 81 mg Budesonide/Formoterol Fumarate (Symbicort) 2 puff IH BIDR ESTHER PRN Reason: Protocol Stop: 07/07/18 22:01 Last Admin: 01/08/18 07:50 Dose: 2 puff Cyanocobalamin (Vitamin B12) 2,500 mcg PO DAILY ESTHER Stop: 07/08/18 09:01 Last Admin: 01/08/18 08:32 Dose: 2,500 mcg Furosemide (Lasix) 60 mg PO BIDDIURETIC ESTHER Stop: 07/10/18 17:01 Guaifenesin (Mucinex) 600 mg PO DAILY PRN PRN Reason: Cough Last Admin: 01/08/18 08:33 Dose: 600 mg Hydroxychloroquine Sulfate (Plaquenuil) 200 mg PO BID ESTHER Stop: 07/07/18 21:01 Last Admin: 01/08/18 08:34 Dose: 200 mg Levofloxacin/Dextrose (Levaquin Premix 750mg/150 Ml) 750 mg in 150 mls @ 100 mls/hr IVPB DAILY ESTHER PRN Reason: Protocol Stop: 07/08/18 09:01 Last Admin: 01/08/18 08:30 Dose: 100 mls/hr Vancomycin HCl 1,250 mg/ (Sodium Chloride) 250 mls @ 166.67 mls/hr IVPB Q12H ESTHER Stop: 07/08/18 17:01 Last Infusion: 01/08/18 06:25 Dose: 0 mls/hr Levothyroxine Sodium (Synthroid) 37.5 mcg PO 0630 [facility] Stop: 07/08/18 06:31 Last Admin: 01/08/18 04:53 Dose: 37.5 mcg Metoprolol Succinate (Toprol Xl) 100 mg PO DAILY ESTHER Stop: 07/08/18 09:01 Last Admin: 01/08/18 08:33 Dose: 100 mg Multi-Ingredient Mouthwash/Gargle (Magic Mouthwash) 10 ml PO QID PRN PRN Reason: Mouth Irritation Naloxone HCl (Narcan) 0.4 mg IVP Q2MIN PRN PRN Reason: SEE COMMENTS Stop: 07/07/18 11:46 Omeprazole (Prilosec) 20 mg PO DAILY ESTHER Stop: 07/08/18 09:01 Last Admin: 01/08/18 08:33 Dose: 20 mg Ondansetron HCl (Zofran) 4 mg IVP Q8HR PRN; Protocol PRN Reason: Nausea And Vomiting Stop: 07/10/18 09:45 Last Admin: 01/08/18 09:52 Dose: 4 mg Polyethylene Glycol (Miralax) 17 gm PO Q48H ESTHER Stop: 07/07/18 12:01 Last Admin: 01/07/18 11:51 Dose: 17 gm Prochlorperazine Maleate (Compazine) 10 mg PO Q8HR PRN PRN Reason: Nausea Stop: 07/09/18 17:10 Rivaroxaban (Xarelto) 20 mg PO DAILY ESTHER Stop: 07/07/18 12:01 Last Admin: 01/08/18 08:33 Dose: 20 mg Rosuvastatin Calcium (Crestor) 10 mg PO HS [facility] Stop: 07/08/18 21:01 Last Admin: 01/07/18 20:57 Dose: 10 mg Sertraline HCl (Zoloft) 200 mg PO DAILY ESTHER Stop: 07/08/18 09:01 Last Admin: 01/08/18 08:33 Dose: 200 mg Tiotropium [place] (Spiriva) 18 mcg IH DAILYR [facility] Stop: 07/08/18 10:01 Last Admin: 01/08/18 07:50 Dose: 18 mcg Tizanidine HCl (Zanaflex) 4 mg PO TID PRN PRN Reason: Pain Last Admin: 01/08/18 04:53 Dose: 4 mg Tramadol HCl (Ultram) 50 mg PO TID PRN PRN Reason: Pain Stop: 07/08/18 15:52 Last Admin: 01/08/18 08:33 Dose: 50 mg Vitamin D (Vitamin D) 1,000 unit PO DAILY ESTHER Stop: 07/07/18 21:01 Last Admin: 01/08/18 08:32 Dose: 1,000 unit Zolpidem Tartrate (Ambien) 5 mg PO HS PRN; Protocol PRN Reason: Insomnia Stop: 07/07/18 11:48 Last Admin: 01/07/18 20:56 Dose: 5 mg Laboratory Tests 01/07/18 01/08/18 01/08/18 03:25 04:55 04:55 Hgb 7.8 L Creatinine 0.52 L Magnesium 1.6 1.5 L - Imaging and Cardiology Chest Xray: report reviewed Echo: report reviewed Cardiac cath: report reviewed - EKG Interpretation EKG results cardiology: other (Telemetry reviewed with average HR previous 12 hours noted to be 91, SR. PVCs and PACs noted.) Consult Discharge Plan - Plan Referrals: Marleny Robles, KILNMAN [Primary Care Provider] -
--- NOTE | 2018-01-08 13:10 | Internal Med Progress Note ---
Hospitalist Progress Note - Encounter Date of Encounter: 01/08/18 Time of Encounter: 13:07 - Subjective Interval History: 67 F with hx of lung CA on chemo (last chemo 1 month ago), chronic anemia, CHFpEF, Afib, CAD, who was admitted and being managed for CHF exacerbation Differential diagnoses on admission included PNA and patient has been on vanco and levaquin for the past 48 hrs Cultures are negative till date She has no new complains Cardiology is following for CHF signed off now STAT repeat CXR shows resolution of infiltrates-in keeping with pulm edema Will discontinue antibiotics Incidental finding of anemia while on Xarelto for afib and DVT, HB stable at 7.8 , baseline is 9 No obvious source of bleeding,obtain FOBT - Exam Vitals: Temp Pulse Resp BP Pulse Ox 98.4 F 82 18 101/52 97 01/08/18 12:00 01/08/18 12:00 01/08/18 12:00 01/08/18 12:00 01/08/18 12:00 Exam: Constitutional: No acute distress, Alert Psych: AAO x 3 HEENT: NCAT, EOMI Neck: supple, no JVD Cardio: regular rate and rhythm, +s1s2, no murmurs/rubs/gallops, no JVD Resp: decreased sounds in bases with bibasilar crackles Chest: equal chest movement bilaterally Abd: soft, non tender/non distended, positive bowel sounds Extremities: mild non pitting edema bilateral lower extremities Neuro: no focal deficits appreciated - Assessment and Plan (1) Paroxysmal atrial fibrillation Current Visit: Yes Status: Chronic Assessment and Plan: Continue metoprolol and xarelto -hemoglobin stable at 7.8 Obtain FOBT (2) Elevated troponin Current Visit: Yes Status: Acute Assessment and Plan: Due to demand, NSTEMI II, Cardio following , no intervention Peak trop 0.71 (3) Metastatic lung cancer (metastasis from lung to other site) Current Visit: Yes Status: Chronic Assessment and Plan: Outpatient follow up (4) DVT prophylaxis Current Visit: Yes Status: Acute Assessment and Plan: On xarelto (5) Acute respiratory failure with hypoxia and hypercapnia Current Visit: Yes Status: Resolved Assessment and Plan: Likely due to acute exacerbation of diastolic dysfunction failure Repeat CXR now with no infiltrates Cultures negative Hypoxia resolved Will discontinue antibiotics, continue diuresis (6) Flash pulmonary edema Current Visit: Yes Status: Acute Assessment and Plan: as above (7) Acute diastolic (congestive) heart failure Current Visit: Yes Status: Acute Assessment and Plan: Continue diuresis Change lasix to po Strict I/O I/O-2.3L Weight loss demonstrated May transfer out of SDU Possible d/c a.m (8) Sepsis Current Visit: Yes Status: Ruled-out Assessment and Plan: Ruled out Discontinue antibiotics (9) Pneumonia Current Visit: Yes Status: Ruled-out Assessment and Plan: Ruled out (10) Anemia Current Visit: Yes Status: Acute Assessment and Plan: Patient with recent chronic anemia likely secondary to bone marrow suppression from chemotherapy -Baseline appears to be around 8-9 since November -Patient had a drop in hemoglobin from 9.1-7.1 -Check FOBT -Check iron stuides-low iron Will start Iron supplement prior to discharge - Time Spent with Patient Total time spent is greater than 50% in coordination of care (as documented) at patient's floor/unit and/or counseling patient: Plan of Care Discussed with: patient Internal Medicine: Result - Labs CBC & Chem 7: 01/08/18 04:55 01/08/18 04:55 Labs: Short CBC 01/08/18 Range/Units 04:55 WBC 11.1 (4.3-11.1) K/mcL Hgb 7.8 L (11.5-15.4) g/dL Hct 25.0 L (35.3-44.9) % Plt Count 310 (140-400) K/mcL Neutrophils # 8.2 (1.6-8.9) K/mcL BMP 01/08/18 04:55 Sodium 133 L Potassium 3.6 Chloride 100 Carbon Dioxide 23 BUN 15 Creatinine 0.52 L Glucose 112 H Calcium 9.3 - ABG Interpretation ABG results: ABG ABG pH 7.28 pH Units (7.32-7.45) L 01/05/18 08:50 ABG pCO2 49 mmHg (35-45) H 01/05/18 08:50 ABG pO2 73 mmHg (85-104) L 01/05/18 08:50 ABG O2 Saturation 92 % (95-98) L 01/05/18 08:50 PT/INR, D-dimer PT 12.6 Seconds (9.4-12.1) H 01/05/18 08:54 - Impressions Impressions Chest X-Ray 01/08/18 12:28 IMPRESSION: Interval resolution of bilateral diffuse interstitial opacities with no acute consolidation. D/ / Tono Reich MD / Tono Reich MD Interpreting Provider: Tono Reich MD Consult Discharge Plan - Plan Referrals: Marleny Robles, EQUIPMENT LEAD [Primary Care Provider] - (3) Metastatic lung cancer (metastasis from lung to other site) Qualifiers: Laterality: unspecified laterality Qualified Code(s): C34.90 - Malignant neoplasm of unspecified part of unspecified bronchus or lung (8) Sepsis Qualifiers: Sepsis type: sepsis due to unspecified organism Qualified Code(s): A41.9 - Sepsis, unspecified organism (9) Pneumonia Qualifiers: Pneumonia type: due to unspecified organism (10) Anemia Qualifiers: Anemia type: unspecified type Qualified Code(s): D64.9 - Anemia, unspecified
[2018-01-08] MEDS ORDERED: Aminoglycoside Consult 1 EACH MC ONE (13:33)
[2018-01-08] MEDS: Furosemide 40 MG TABLET PO SCH (16:18)
[2018-01-09] MEDS: Levothyroxine 25 MCG TABLET PO SCH (05:05)
[2018-01-09] MEDS: tiZANidine 4 MG TABLET PO PRN (06:05)
[2018-01-09 06:46] LABS: Basophils % 0.3 %; Eosinophils # 0.2 K/mcL (0.0-0.6); Eosinophils % 1.6 %; Hemoglobin 7.9 g/dL (11.5-15.4); Immature Granulocytes % 0.6 % (0-4); Lymphocytes # 1.4 K/mcL (0.6-4.6); Lymphocytes % 10.6 %; Mean Corpuscular HGB Conc 31.6 g/dL (31.6-35.5); Mean Corpuscular Hemoglobin 23.8 pg (28.0-33.3); Mean Corpuscular Volume 75.3 fL (83.0-100.0); Mean Platelet Volume 10.5 fL (9.4-12.4); Monocytes # 1.3 K/mcL (0.0-1.3); Monocytes % 10.2 %; Platelet Count 272 K/mcL (140-400); Red Blood Count 3.32 M/mcL (3.82-4.97); Red Cell Distribution Width 22.6 % (11.5-14.5); Segmented Neutrophils % 76.7 %
[2018-01-09 07:05] LABS: BUN/Creatinine Ratio 26 (6-26); Blood Urea Nitrogen 15 mg/dL (8-23); Calcium 9.1 mg/dL (8.6-10.3); Carbon Dioxide 22 mEq/L (23-29); Chloride 99 mEq/L (98-107); Glucose 127 mg/dL (70-105); Osmolality,Calculated 270 (280-300); Potassium 3.3 mEq/L (3.5-5.1); Sodium 129 mEq/L (136-145); eGFR For Non-African Americans > 60 (> 60)
[2018-01-09 07:57] VITALS: BP 105/59
[2018-01-09] MEDS: Cholecalciferol (D-3) 1,000 UNIT TABLET PO SCH (07:58)
[2018-01-09] MEDS: Furosemide 40 MG TABLET PO SCH (07:58)
[2018-01-09] MEDS: Aspirin 81 MG TAB.CHEW PO SCH (07:58)
[2018-01-09] MEDS: *HR* Rivaroxaban 10 MG TABLET PO SCH (07:58)
[2018-01-09] MEDS: Cyanocobalamin (B-12) 1,000 MCG TABLET PO SCH (07:58)
[2018-01-09] MEDS: Metoprolol XL (24 HR) Succ 50 MG TAB.ER.24H PO SCH (07:59)
[2018-01-09] MEDS: Tiotropium 18 MCG inhalation IH SCH (08:01)
[2018-01-09] MEDS: Budesonide/Formoterol 160/4.5 1 PUFF INH IH SCH (08:01)
[2018-01-09] MEDS ORDERED: levoFLOXacin 750 MG TABLET PO SCH (09:00)
--- NOTE | 2018-01-09 12:05 | Discharge Summary ---
- NOTES TO OUTPATIENT PROVIDER Notes to Outpatient Provider: Patient admitted for acute hypoxic resp failure secondary to CHFE. She has since made improvement on increased doses of lasix. She no longer requires O2. Recommend repeat Chem and CBC in one week and follow up with PCP within 2 weeks. Incidental finding of anemia, hwoever, patient is on chemo and no obviois source of bleeding Orders not resulted at time of discharge: Pending orders 01/08/18 12:30 Occult Blood,Stool [BF] Stat 01/10/18 04:00 Chem 7 [Basic Metabolic Panel] AM 0400 Complete Blood Count [HEME] AM 0400 Date of Encounter: 01/09/18 Time of Encounter: 10:00 - Discharge Diagnosis (1) Paroxysmal atrial fibrillation Priority: Primary Status: Chronic (2) Elevated troponin Priority: Primary Status: Acute (3) Metastatic lung cancer (metastasis from lung to other site) Priority: Secondary Status: Chronic Qualifiers: Laterality: unspecified laterality Qualified Code(s): C34.90 - Malignant neoplasm of unspecified part of unspecified bronchus or lung (4) DVT prophylaxis Priority: Primary Status: Resolved (5) Acute respiratory failure with hypoxia and hypercapnia Priority: Primary Status: Resolved (6) Flash pulmonary edema Priority: Primary Status: Resolved (7) Acute diastolic (congestive) heart failure Priority: Primary Status: Resolved (8) Sepsis Priority: Primary Status: Ruled-out Qualifiers: Sepsis type: sepsis due to unspecified organism Qualified Code(s): A41.9 - Sepsis, unspecified organism (9) Pneumonia Priority: Primary Status: Ruled-out Qualifiers: Pneumonia type: due to unspecified organism Laterality: unspecified laterality Lung location: unspecified part of lung Qualified Code(s): J18.9 - Pneumonia, unspecified organism (10) Anemia Priority: Primary Status: Acute Qualifiers: Anemia type: unspecified type Qualified Code(s): D64.9 - Anemia, unspecified Hospital course: Ms. Manning is a 67 year old female Patient admitted for acute hypoxic resp failure secondary to CHFE She has since made improvement on increased doses of lasix She no longer requires O2 Recommend repeat Chem and CBC in one week and follow up with PCP within 2 weeks Incidental finding of anemia, however, patient is on chemo and no obviois source of bleeding. Work up significant for iron deficiency anemia Patient is discharged on oral iron replcement She is ambulatory and clinically stable to be discharged home with family, verbalized understanding of plan of care Other chronic medical conditions remained stable Discharge discussed with: patient, family, nurse, case management - Time Spent with Patient Total time spent providing and/or coordinating discharge services: Less than 30 minutes - Discharge Medications Prescriptions: Docusate [Colace] 100 mg PO BID #60 capsule Ferrous Sulfate 325 mg PO BIDWM #60 tablet Furosemide [Lasix] 60 mg PO BIDDIURETIC #120 tablet Home Medications: Hydroxychloroquine [Plaquenuil] 200 mg PO BID 04/20/15 [History] Levothyroxine [Synthroid] 37.5 mcg PO 0630 04/20/15 [History] Potassium Chloride 10 meq PO DAILY 04/20/15 [History] Sertraline [Zoloft] 200 mg PO DAILY 04/20/15 [History] Tizanidine HCl [Zanaflex] 4 mg PO TID PRN 04/20/15 [History] Aspirin 81 mg PO DAILY #30 tab.chew 04/28/15 [Rx] Atorvastatin [Lipitor] 40 mg PO HS 30 Days tablet 04/28/15 [Rx] Albuterol Sulfate [Proair Hfa] 2 puff IH Q4H PRN 06/10/15 [History] Ascorbic Acid [Vitamin C] 250 mg PO DAILY 06/10/15 [History] Calcium Carbonate/Vitamin D3 [Calcium 600 + Vit D Softgel] 1 each PO BID [History] Cholecalciferol (D-3) [Vitamin D] 2,000 unit PO BID 06/10/15 [History] Cyanocobalamin (Vitamin B-12) [Vitamin B-12] 2,500 mcg SL DAILY 06/10/15 [ History] Nitroglycerin [Nitrostat] 0.4 mg SL Q5M PRN 06/10/15 [History] [place]-3 Fatty Acids [Fish Oil] 1,000 mg PO BID 06/10/15 [History] Rivaroxaban [Xarelto] 20 mg PO DAILY 06/10/15 [History] Acetaminophen [Tylenol] 325 mg PO Q6HR PRN 03/28/17 [History] Budesonide/Formoterol 160/4.5 [Symbicort 160/4.5] 2 puff IH BIDR 03/28/17 [ History] Lidocaine Patch [Lidoderm 5% patch] 2 each TP DAILY 03/28/17 [History] Simethicone [Gas Relief] 125 mg PO QID PRN 03/28/17 [History] Tiotropium [Spiriva] 1 inh IH DAILY 03/28/17 [History] Vitamin B Complex [B Complex] 1 each PO DAILY 03/28/17 [History] guaiFENesin [Guaifenesin] 600 mg PO DAILY PRN 03/28/17 [History] Lidocaine/Prilocaine CREAM [[place]] 5 gm TP ONCE #1 tube 04/06/17 [Rx] Metoprolol XL (24 HR) Succ [Toprol Xl] 100 mg PO DAILY 06/12/17 [History] Ondansetron [Zofran] 8 mg PO Q8HR PRN #90 tablet 09/07/17 [Rx] Magic Mouthwash [Magic Mouthwash BLM] 10 ml PO QID PRN #240 ml 10/19/17 [Rx] Dexamethasone [Decadron] 4 mg PO BID #36 tab 11/16/17 [Rx] Prochlorperazine Maleate [Compazine] 10 mg PO Q8HR PRN #90 tablet 11/16/17 [Rx] MOM Conc [MILK OF MAGNESIA conc] 30 ml PO Q48H 15 Days #15 ud.liq 11/26/17 [Rx] Pantoprazole Sodium [Protonix] 20 mg PO DAILY 12/07/17 [History] Polyethylene Glycol 3350 [MiraLAX] 17 gm PO Q48H 12/07/17 [History] Tramadol HCl [Ultram] 50 mg PO TID PRN 30 Days #90 tab 12/07/17 [Rx] Zolpidem [Ambien] 5 mg PO HS PRN 30 Days #30 tablet 12/07/17 [Rx] Docusate [Colace] 100 mg PO BID #60 capsule 01/09/18 [Rx] Ferrous Sulfate 325 mg PO BIDWM #60 tablet 01/09/18 [Rx] Furosemide [Lasix] 60 mg PO BIDDIURETIC #120 tablet 01/09/18 [Rx] Allergies/Adverse Reactions: 3 Allergy/AdvReac Type Severity Reaction Status Date / Time duloxetine [From Cymbalta] Allergy Itching Verified 12/28/17 08:35 Metaxalone [From Skelaxin] Allergy Itching Verified 12/28/17 08:35 valdecoxib [From Bextra] Allergy Itching Verified 12/28/17 08:35 bupropion [From Wellbutrin] AdvReac See Verified 12/28/17 08:35 Comments meperidine [From Demerol] AdvReac Nausea Verified 12/28/17 08:35 pentazocine [From Talwin] AdvReac See Verified 12/28/17 08:35 Comments eggs AdvReac Abdominal Uncoded 12/28/17 08:35 Pain Date of admission: 01/05/18 11:33 Primary care physician: Marleny Robles CNP Consults: 01/05/18 14:11 Consult to Stockbroker [CONS] Routine Reason for SW Consult: may need home health services 01/05/18 16:50 Consult to Cardiology [CONS] Routine Comment: Consulting Provider: Cardiology [place] Reason for Consult: elevated troponins Call Completed: Yes Discharging clinician: Bharathi Larios Anticipated date of discharge: 01/09/18 - Constitutional Vitals: Temp Pulse Resp BP Pulse Ox 99.2 F 81 16 105/59 97 01/09/18 07:56 01/09/18 07:56 01/09/18 08:03 01/09/18 07:56 01/09/18 08:03 General appearance: Present: morbidly obese Exam: see below - Head Head exam: Present: atraumatic, normocephalic - Eye Eye exam: Present: PERRL, conjuntiva pink, sclera anicteric Pupils: Present: PERRL - Neck Neck exam general surgery: Present: supple, trachea midline. Absent: lymphadenopathy - Respiratory Respiratory exam: Present: CTAB. Absent: accessory muscle use, rales, rhonchi, wheezes - Cardiovascular Cardiovascular exam: Present: RRR, +S1, +S2. Absent: diastolic murmur, gallop, rubs, systolic murmur - GI/Abdominal GI/Abdominal exam: Present: normal bowel sounds, soft, no peritoneal signs. Absent: distended, tenderness - Extremities Exam Extremities exam: Present: warm, radial pulses palpable and symmetrical. Absent : calf tenderness, cyanotic, pedal edema - Neurological Exam Neurological exam: Present: CN II-XII intact, oriented X3, no focal deficits. Absent: pronater drift, facial droop, speech deficit - Skin Skin exam: Present: dry, intact - Patient Status Disposition: Home, Self-Care Condition: Good Functional capacity at discharge: independent ambulation Overall status at discharge: patient is back to baseline - Discharge Instructions Follow Up With: Marleny Robles, SHIRRING TENDER [Primary Care Provider] - - Diet and Activity Activity: resume usual activities as tolerated Diet: low fat, low cholesterol, low salt diet
== END 2018-01-09 13:34 | disposition home or self-care (01) | DRG 280 ==
LOC: EMEROOARM 08:37 → 2NNU 11:33 → SUATTDRO 11:33 → 2NNU 12:49
PROVIDERS: ADMIT Student in an Organized Health Care Education/Training Program; ATTEND Internal Medicine